=== PATIENT | female | born 1940 | race Hispanic/Latino ===

== ENCOUNTER 2019-11-04 13:03 | Inpatient (IN) | payer OTHER ==
--- OUTSIDE RECORDS SUMMARY | 2019-11-04 13:06 | XMS REPORT | Clinical Summary ---
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 LEVOTHROID) 75 MCG tabletIndications: hypothyroidism cyanocobalamin Inject 50 mcg as 0 Active (VITAMIN B-12) 50 mcg directed daily. tablet famotidine (PEPCID) Take 1 tablet (20 60 tablet 2 01/07/2014 Active 20 MG tablet mg total) by mouth 2 (two) times daily. glucometer Misc For home glucose 1 each 0 01/07/2014 Active monitoring blood sugar 1 box by 100 strip 0 01/07/2014 Active diagnostic (ACCUTREND Miscellaneous route GLUCOSE) Strp 2 (two) times daily before meals. lancets (FINGERSTIX For home glucose 50 each 0 01/07/2014 Active LANCETS) Misc monitoring Active Problems Not on file Social History Tobacco Use Types Packs/Day Years Used Date Never Smoker Alcohol Use Drinks/Week oz/Week Comments No Sex Assigned at Date Recorded Not on file Job Start Date Occupation Industry Not on file Not on file Not on file Travel History Travel Start Travel End No recent travel history available. Last Filed Vital Signs Not on file Plan of Treatment Not on file Results Not on fileafter 11/03/2018 Insurance Payer Benefit Plan / Group Subscriber ID Type Phone A ddress CARE IMPROVEMENT MEDICARE CARE IMPROVEMENT PLUS xxxxxxxxx [facility] MEDICAID MEDICAID OF [place] xxxxxxxxx Medicaid
--- OUTSIDE RECORDS SUMMARY | 2019-11-04 13:06 | XMS REPORT ---
:1940 Author Organization [facility] t Address [address] [place] [address] Care Team Providers Name Role Phone Unavailable Unavailable Unavailable Problems Condition Condition Condition Status Onset Resolution Last Treating Co mments Source Name Details Category Date Date Treatment Clinician Date Proteinuri Proteinuri Problem Active [facility] Diabetes Diabetes Problem [facility] mellitus mellitus [facility] - type 2, type 2, Memoria uncontroll uncontroll l ed, ed, Outpati without without ent complicati complicati Cl inics ons ons Gastro-eso Gastro-eso Problem Active [facility] phageal phageal [facility] - reflux reflux Memoria disease disease l without without Outpati esophagiti esophagiti en t s s Clinics Hypothyroi Hypothyroi Problem Active [facility] dism dism [facility] Vitamin Vitamin Problem Active [facility] B12 B12 [facility] - deficiency deficiency Me moria l Outpati ent Clinics Rheumatoid Rheumatoid Problem Active [facility] arthritis arthritis [facility] Gout Gout Problem Active [facility] Thrombocyt Thrombocyt Problem Active [facility] openia openia [facility] Fatty Fatty Problem Active [facility] liver liver [facility] Cataract Cataract Problem [facility] Degenerati Degenerati Problem Active [facility] on of on of [facility] - lumbosacra lumbosacra Me moria l l l interverte interverte Ou tpati bral disc bral disc ent Clinics H/O TIA H/O TIA Problem Active [facility] (transient (transient Mallory kes - ischemic ischemic Memori a attack) attack) l and stroke and stroke Ou tpati ent Clinics HTN HTN Problem Active [facility] (hypertens (hypertens Mallory kes - ion), ion), Memoria benign benign l Outpati ent [facility] 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 Mallory kes - athy athy Memoria associated associated l with other with other Ou tpati specified specified ent diabetes diabetes Clinic s mellitus mellitus Seasonal Seasonal Problem Active [facility] allergic allergic [facility] - rhinitis rhinitis Memori a l [facility] ent [facility] 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) Clin ics 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 Memori a joints joints l [facility] ent [facility] 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 [facility] chronic chronic [facility] 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 Luke s - and and Memoria ureter, ureter, l unspecifie unspecifie Ou tpati d d ent Clinics 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 [facility] ent [facility] Primary Primary Problem Active [facility] osteoarthr osteoarthr Mallory kes - itis of itis of Memoria right knee right knee l [facility] Allergies, Adverse Reactions, Alerts Allergy Allergy Status Severity Reaction(s) Onset Inactive Treating Comm ents Source Name Type Date Date Clinician penicill Adverse Active Info Not [facility] in Reaction Available [facility] Ultram Adverse Active Info Not [facility] Reaction Available [facility] Motrin Adverse Active Info Not [facility] Reaction Available [facility] Ibuprofe Adverse Active Info Not [facility] n Reaction Available [facility] Ciproflo Adverse Active Info Not [facility] xacin Reaction Available [facility] Lisinopr Adverse Active Info Not [facility] il Reaction Available [facility] Medications Ordered Filled Start Stop Current Ordering Indication Dosage Frequency Signature Comments Components Source Medication Medication Date Date Medication? Clinician (SIG) Name Name Tradjenta Tradjenta Yes Ramakrishna [address] [facility] Yepez [facility] Levothyroxi Levothyroxi Yes Ramakrishna RAINE VON [facility] ne Sodium ne Sodium Yepez TABLETA Mallory kes - POR VIA Memoria ORAL CADA l MANANA ON Outpati A EMPTY ent STOMACH Clinics Bystolic Bystolic Yes Ramakrishna [address] [facility] Yepez [facility] Lasix Lasix Yes Ramakrishna [address] Yepez [facility] Amlodipine Amlodipine Yes Ramakrishna RAINE VON [facility] Besylate Besylate Yepez TABLETA Luke s - VON VEZ AL Memoria ALAN POR l VIA ORAL [facility] Amlodipine Amlodipine Yes Ramakrishna [address] [facility] [address] Besylate Besylate Yepez [facility] Levothyroxi Levothyroxi Yes Ramakrishna [address] [facility] ne Sodium ne Sodium Yepez on an Luke s - empty Memoria stomach in l the Outpati morning ent Clinics Venlafaxine Venlafaxine Yes Ramakrishna 1-[address] HCl HCl Yepez with food [facility] - PRN Nerve Memoria Pain l [facility] TobraDex TobraDex Yes Ramakrishna [address] [facility] Yepez applicatio [facility] n [facility] l [facility] Metformin Metformin Yes Ramakrishna [address] HCl HCl Yepez with meals [facility] Vitamin Vitamin Yes Ramakrishna not [facility] B-12 B-12 Yepez defined [facility] Ferrous Ferrous Yes Ramakrishna [address] Sulfate Sulfate Yepez [facility] Lisinopril Lisinopril Yes Ramakrishna [address] Yepez [facility] Procedures This patient has no known procedures. Encounters Start End Encounter Admission Attending Care Care Encounter Source Date/Time Date/Time Type Type Clinicians Facility Department ID 2019-01-27 2019-01-27 Outpatient Janine Calvert [id number] [facility] 16:32:00 16:32:00 t [facility] ent Clinics 2019-01-23 2019-01-23 Outpatient Janine Calvert [id number] [facility] 16:19:00 16:19:00 t [facility] ent Clinics 2019-01-10 2019-01-10 Outpatient Janine Calvert [id number] [facility] 09:30:00 09:30:00 t [facility]ics 2019-01-02 2019-01-02 [facility] [id number] [address] 08:45:00 08:45:[place] orderTopia s - Drive [facility] Medicine Outpati ent Clinics 2018-12-26 2018-12-26 [facility] [id number] 08:15:00 08:15:00 [place] [employer] [place] - [employer] [facility] Medicine Outpati ent Clinics 2018-10-03 2018-10-03 [facility] [id number] 08:30:00 08:30:00 [place] [employer] [place] - [place] [facility] Medicine Outpati ent Clinics 2018-09-26 2018-09-26 [facility] [id number] [address] 08:30:00 08:30:00 [place] [employer] - [place] [facility] Medicine Outpati ent Clinics 2018-09-06 2018-09-06 [facility] [id number] [address] 10:25:00 10:25:00 [place] [employer] - [place] [facility] Medicine Outpati ent Clinics 2018-09-02 2018-09-02 [facility] [id number] 10:15:00 10:15:00 [place] [employer] [facility] Medicine Outpati ent Clinics 2018-07-05 2018-07-05 [facility] [id number] [address] 08[facility]30:00 08:30:00 [place] orderTopia s - Drive [facility] Medicine Outpati ent Clinics 2018-06-28 2018-06-28 [facility] [id number] [address] 08:15:00 08:15:00 [place] [employer] [facility] Medicine Outpati ent Clinics 2018-05-28 2018-05-28 [facility] [id number] [address] 14:00:00 14:00:00 t [facility] ent Clinics 2018-02-04 2018-02-04 [facility] [id number] [facility] 08:30:00 08:30:00 [place] [address] [place] [facility] - Drive [facility] l Medicine Outpati ent Clinics 2018-01-28 2018-01-28 [facility] [id number] [facility] 08:15:00 08:15:00 [place] [place] [address] [place] [facility] - Drive [facility] Family Medicine l Medicine Outpati ent Clinics 2017-12-20 2017-12-20 [facility] [id number] 14:15:00 14:15:00 [place] [address] [place] [address] [place] - Drive [facility] Family Medicine l Medicine Outpati ent Clinics 2017-12-11 2017-12-11 [facility] [id number] [address] 12:00:00 12:00:00 [place] [place] [address] [place] - Drive [facility] Medicine l Medicine Outpati ent Clinics 2017-12-04 2017-12-04 [facility] [id number] 08:15:00 08:15:00 [place] [address] [facility] - Drive [facility] Family Medicine l Medicine Outpati ent Clinics 2017-10-29 2017-10-29 [facility] [id number] [address] 10:15:00 10:15:00 [place] [address] [place] - Drive [facility] Medicine l Medicine Outpati ent Clinics 2017-10-22 2017-10-22 [facility] [id number] 07:53:00 07:53:00 [place] [employer] [place] s - Drive [facility] Medicine l Medicine Outpati ent Clinics 2017-10-19 2017-10-19 [facility] [id number] 09:50:00 09:50:00 [place] [address] [facility] - Drive [facility] Family Medicine l Medicine Outpati ent Clinics 2017-10-19 2017-10-19 [facility] [id number] 08:15:00 08:15:00 [place] [address] [place] [facility] - Drive [facility] Medicine l Medicine Outpati ent Clinics 2017-09-26 2017-09-26 [facility] [id number] 16:20:00 16:20:00 [place] [address] [place] [address] [facility] - Drive [facility] 2017-09-24 2017-09-24 Outpatient [facility] [id number] 08:49:00 08:49:00 t [employer] [facility] ent [facility] 2017-09-24 2017-09-24 Outpatient Janine Mehtat [id number] 08:45:00 08:45:00 t [employer] [facility] ent Clinics Results This patient has no known results.
[2019-11-04 13:41] VITALS: BMI 22.1
[2019-11-04] MEDS ORDERED: ACETAMINOPHEN 500 MG TAB PO PRN (13:55)
[2019-11-04] MEDS ORDERED: ONDANSETRON 4 MG/2 ML VIAL IV PRN (13:55)
[2019-11-04] MEDS ORDERED: NA CHLORIDE 0.9% 1,000 ML IV SCH (14:00)
[2019-11-04 14:49] LABS: Absolute Lymphocytes (CBC) 1.2 K/uL (0.7-4.9); Basophils % 0.5 % (0-1.3); Hematocrit 31.5 % (36.0-45.0); Lymphocytes % 25.9 % (15.3-44.8); MPV 11.4 fL (7.6-11.3); RBC Red Blood Cell Count 3.69 M/uL (3.86-4.86)
[2019-11-04 15:21] LABS: Albumin 3.8 g/dL (3.4-5.0); Bilirubin Total 0.3 mg/dL (0.2-1.0); Magnesium 2.3 mg/dL (1.8-2.4); Phosphorus 4.4 mg/dL (2.5-4.9); Protein, Total 9.3 g/dL (6.4-8.2); Thyroid Stimulating Hormone 1.85 uIU/mL (0.360-3.740)
[2019-11-04 15:25] LABS: Potassium 6.2 mmol/L (3.5-5.1)
[2019-11-04 15:38] LABS: Blood Morphology Comment NOT SEEN (NOT SEEN); Platelet Estimate DECR; Urine White Blood Cell Casts OK
[2019-11-04] MEDS ORDERED: GLUCAGON 1 MG/VIAL IM PRN (15:52)
[2019-11-04] MEDS ORDERED: D50W 25 GM/50 ML SYRINGE/VIAL IV PRN (15:52)
[2019-11-04 15:57] LABS: Urine Appearance CLOUDY; Urine Bilirubin NEGATIVE (NEG); Urine Blood 1+ (NEG); Urine Color YELLOW; Urine Glucose 2+ (NEG); Urine Protein 1+ (NEG); Urine Specific Gravity 1.015 (1.005-1.030); Urine Urobilinogen 0.2 mg/dL (0.2-1.0)
[2019-11-04] MEDS ORDERED: NACHLORIDE 0.45% 1,000 ML with NA BICARB 8.4% 75 MEQ IV SCH ×4 (16:00→17:00)
[2019-11-04] MEDS ORDERED: D50W 25 GM/50 ML SYRINGE/VIAL IV ONE ×2 (16:13→17:00)
[2019-11-04] MEDS ORDERED: INSULIN -REGULAR HUMAN 50 UNIT/0.5 ML ML IV ONE (16:15)
[2019-11-04 16:22] LABS: Urine Microscopic Reflex ORDER UMIC
[2019-11-04 16:29] LABS: Urine Protein/Creatinine Ratio 0.56 ratio (<0.15)
[2019-11-04 16:42] LABS: Urine Bacteria LOADED /HPF (<20); Urine Culture Reflex Order REFLEXED; Urine RBC <5 /HPF (NONE SEEN)
[2019-11-04] MEDS ORDERED: CALCIUM GLUC 10% INJ 4.65 MEQ in NA CHLORIDE 0.9% 100 ML IV ONE (17:00)
[2019-11-04] MEDS ORDERED: SOD POLYSTYREN SUL 15 GM/60 ML UCUP PO ONE (17:00)
[2019-11-04] MEDS ORDERED: NA CHLORIDE 0.9% 1,000 ML IV ONE (17:00)
[2019-11-04] MEDS ORDERED: WATER FOR INJ,STERILE 1,000 ML with NA BICARB 8.4% 100 MEQ IV SCH ×2 (17:00)
[2019-11-04] MEDS ORDERED: FUROSEMIDE 40 MG/4 ML VIAL IV ONE (17:00)
[2019-11-04] MEDS ORDERED: ALBUTEROL 2.5 MG/3 ML NEB SOL NEB ONE (17:00)
--- NOTE | 2019-11-04 17:06 | RAD REPORT ---
EXAM DESCRIPTION: US - Renal Ultrasound-Complete - 11/04/2019 4:29 pm CLINICAL HISTORY: KP Flank pain COMPARISON: LIVER BIOPSYPROCEDUREE dated 04/08/2012; Abdomen Pelvis Wo Contrast dated 09/30/2016 FINDINGS: Both kidneys are normal in size, shape and echotexture. The right kidney measures 9.9 x 5.2 x 4.2 cm. No hydronephrosis, focal mass or perinephric fluid. 3 c m cyst is present superior pole right kidney, benign in appearance. The left kidney measures 10.2 x 4.5 x 3.9 cm. No hydronephrosis, focal mass or perinephric fluid. The urinary bladder is incompletely distended without gross abnormality seen. IMPRESSION: Benign 3 cm right renal cyst, otherwise negative study.
[2019-11-04 17:11] LABS: Uric Acid 6.5 mg/dL (2.6-6.0)
[2019-11-04 17:44] LABS: Blood O2 Saturation 95.8 % (92-98.5)
[2019-11-04] MEDS: WATER FOR INJ,STERILE 1,000 ML with NA BICARB 8.4% 150 MEQ IV SCH ×2 (18:40)
[2019-11-04] MEDS: PIPER/TAZO/NS 2.25gm 2.25 GM/50 ML BAG IVPB SCH ×2 (18:42→23:58)
--- NOTE | 2019-11-05 00:01 | HP ---
Date of Admission: 11/04/2019 Code Status: Full. Chief Complaint: Abnormal labs, direct admission from Nephrology office for worsening kidney functio n. History Of Present Illness: Patient is a 79-year-old female with past medical history of diabetes, h ypothyroidism, hypertension, hyperlipidemia, rheumatoid arthritis, GERD, gout, comes in from nephrolo gist's office for abnormal labs. Patient has worsening kidney function and patient was dehydrated, t herefore was sent into the hospital for further evaluation. Patient otherwise denies any specific co mplaints. No nausea, vomiting, fever, chills. History is limited as patient is Belarusian-speaking onl y with very limited Angolan. Past Medical History: Diabetes mellitus type 2, hypothyroidism, hypertension, hyperlipidemia, rheuma toid arthritis, GERD and gout. Surgical History: Hysterectomy, cholecystectomy, hernia repair. Allergies: TYLENOL, PENICILLIN, CIPRO, CODEINE, MORPHINE, TRAMADOL, AND LOSARTAN. Medications: List reviewed. Social History: Patient denies any tobacco or alcohol use. No illicit drug use. Family History: Denies any family history of diabetes. Review of Systems: Limited due to communication, however, 10-point system reviewed negative except as per HPI. Physical Examination: Vital signs: O2 greater than 95% on room air. Blood pressure 142/53, respirations 18, heart rate 75 . General: Awake, alert, oriented, no acute distress elderly female. HEENT: Normocephalic, atraumatic. PERRLA, EOMI. Moist mucous membranes. Poor dentition. Conjunct ivae anicteric. Neck: Supple. No JVD. Trachea midline. CV: S1, S2. Regular rate and rhythm. Peripheral pulses present. Respiratory: Moving air well bilaterally. No wheezing or stridor. Gastrointestinal: Abdomen is soft, nontender, nondistended. Positive bowel sounds. Extremities: No clubbing, cyanosis, or edema. Neuro: Cranial nerves 2 through 12 intact grossly. No focal neurological deficit. Speech is normal . Skin: No rashes. Normal skin turgor. Laboratory Data: Sodium 138, potassium 6.2, chloride 118, CO2 15, BUN 54, creatinine 1.8, glucose 14 6, lactate 1, uric acid 6.5, calcium 8.7, phosphorus 4.4, magnesium 2.3. WBC 4.6, H and H 10.6 and 3 1.5, platelets 67. ABG, pH 7.24, pCO2 23, PO2 115, bicarb is 9.9. UA, negative nitrite, 3+ leukocyt e esterase, loaded bacteria. Renal ultrasound shows benign 3 cm right renal cyst, otherwise negative . Assessment And Plan: 79-year-old female with 1.Acute kidney injury. Baseline creatinine is normal. Renal ultrasound shows benign cyst, unclear etiology. We will have Nephrology Dr. Tabor consult on the patient. Uric acid is elevated. Daisy ent does have hypokalemia as well. We will start on bicarb drip and monitor kidney function. 2.Hyperkalemia. Patient is given Kayexalate, albuterol treatment, and calcium gluconate. We will r epeat labs in 6 hours or so. 3.Metabolic acidosis. We will continue bicarb drip secondary to above. 4.Diabetes mellitus type 2, non-insulin requiring. We will continue with sliding scale insulin. Mo nitor blood glucose levels. 5.Volume depletion. 6.Thrombocytopenia, this is chronic. 7.Mixed hyperlipidemia. We will continue home medication. 8.Essential hypertension. Continue medications as appropriate. 9.Gastroesophageal reflux disease. Continue PPI. 10.Hypothyroidism. Continue replacement. 11.Osteoarthritis. 12.Rheumatoid arthritis, stable. PLAN: We will admit patient to Med-Surg, place as inpatient. Length of stay greater than 2 midnights. JAVY Voice ID: [id number]
[2019-11-05 00:43] LABS: Potassium 5.4 mmol/L (3.5-5.1)
[2019-11-05] MEDS: WATER FOR INJ,STERILE 1,000 ML with NA BICARB 8.4% 150 MEQ IV SCH ×6 (07:01→18:00)
[2019-11-05] MEDS: FLUDROCORTISONE 0.1 MG TAB PO SCH (08:42)
[2019-11-05] MEDS: PIPER/TAZO/NS 2.25gm 2.25 GM/50 ML BAG IVPB SCH ×2 (08:42→16:49)
--- NOTE | 2019-11-05 12:58 | CON ---
Date of Consultation: 11/05/2019 Reason For Consultation: Hyperkalemia, elevated BUN and creatinine, fluid management, acidosis. History Of Present Illness: This is a pleasant 79-year-old female with significant past medical history of diabetes which diagnosed in 2016, complicated with neuropathy and retinopathy; hypothyroidism; hypertension; hyperlipidemia; rheumatoid arthritis; GERD; gout; patient was in her regular state of health. Patient referred to my office for elevation BUN and creatinine, and hyperkalemia. Upon reviewing the lab that done back in October 23, potassium was 6.6 with acidosis, bicarb was 14, creatinine 2.1. For that reason, patient was sent for direct admission. Patient denied taking any nonsteroidal. No IV contrast. No recent change in her medication. Patient upon arrival to the hospital, we started the patient on aggressive hydration. Apparently, she was on lisinopril. The primary workup show acidosis with pH of . Patient started on bicarb drip and we send for the workup. Lisinopril has been discontinued and IV fluids started. Patient started on antibiotic. Patient today feeling much better. No nausea. No vomiting. Potassium has been decreased from 6.6 down to 5.4. Past Medical History: 1. Diabetes, complicated with neuropathy and retinopathy. 2. Hypothyroidism. 3. Hypertension. 4. Hyperlipidemia. 5. Rheumatoid arthritis. 6. GERD. 7. Gout. Past Surgical History: Hysterectomy, cholecystectomy, and hernia repair. Allergies: CIPRO, CODEINE, MORPHINE, TRAMADOL, LOSARTAN, AND TYLENOL. Home Medications: Include: 1. Lisinopril. 2. Amlodipine. 3. Carvedilol. 4. Levothyroxine. 5. Actos. Current medications in the hospital include Tylenol, Zosyn, Zofran and bicarb drip. Family History: Positive for diabetes and hypertension. Social History: Lives with family. Denies smoking. Denies drinking. Denies drug abuse. Review of Systems: Head and Neck: No red eye. No ear pain. GI: No nausea. No vomiting. : No polyuria. No dysuria. No hematuria. 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 Respiratory: No shortness of breath. Cardiovascular: No chest pain. Endocrine: No polydipsia. Skin : No rash. Neuro: Has neuropathy. Musculoskeletal: Generalized body ache. Physical Examination: Vital Signs: Blood pressure 127/64, pulse of 81, afebrile. Patient had good urine output of 500, positive of 2 L. Chest: Clear to auscultation. Heart: S1, S2. Systolic murmur. Abdomen: Soft, nontender. Extremities: No edema. Laboratory Data: CO2 of 23, O2 of 115, base excess -16. WBC 4.6, H and H 10.6/31.5, platelets 67. Sodium 139, potassium 5.4, bicarb 17, chloride 115, BUN 48, creatinine 1.5, calcium 8.2. Upon admission, sodium 138, potassium 6.2, bicarb 15, BUN 54, creatinine 1.8. TSH 1.8. Cortisol level is 22. Urinalysis; PC ratio is 0.5. Ketone was negative. Renal ultrasound was done showing 9.5 x 10.2 with renal cyst 3 cm. Assessment And Plan: 1. Acute kidney injury, normal size kidney, proteinuric, non-nephrotic mostly secondary to prerenal/toxic acute tubular necrosis superimposed with lisinopril, complicated with hyperkalemia and acidosis, under recovery phase. I am going to continue aggressive hydration. With the presence of acidosis, we will use the sodium bicarb drip. 2. Acidosis with urine anion gap positive and hyperkalemia, mostly secondary with non-anion gap in the serum mostly it is secondary to toxic acute tubular necrosis/renal tubular acidosis secondary to diabetes, questionable secondary to rheumatoid arthritis. Giving the hyperkalemia, I am going to keep holding DAVID inhibitor. We will continue sodium bicarb. I am going to start the patient on sodium bicarb oral and we will start the patient on Florinef and we will follow up the patient. 3. Giving the presence of the anemia and the proteinuria to rule out any Fanconi, I am going to send for anemia workup and to rule out light chain disease. 4. 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 5. Hyperkalemia secondary to DAVID inhibitor/renal tubular acidosis, under recovery. Continue sodium bicarb. Continue hydration. Discontinue lisinopril. 6. Diabetes as by primary. 7. Urinary tract infection. Continue Zosyn. Follow up culture. 8. Hypertension, currently controlled optimal. With the presence of acute kidney injury and hyperkalemia, hold DAVID inhibitor, if need to resume carvedilol I am okay. MA/MODL Voice ID: [id number] Report ID: [id number] MTDCalvin
--- NOTE | 2019-11-05 19:35 | PN ---
Date of Progress Note: 11/05/2019 Subjective: Patient seen and examined. Chart reviewed and case discussed with RN and Dr. Tabor. Patient states she is doing better. No acute events overnight. Tolerating her diet, but does not have much of an appetite. Medications: List reviewed. Physical Examination: Vital Signs: Temperature 98.2, heart rate 81, blood pressure 127/64, respirations 18, O2 97% on room air. General: Awake, alert, oriented x3. Elderly female, in some mild distress, frail cachectic. CV: S1, S2. Regular rate and rhythm. Peripheral pulses present. Respiratory: Moving air well bilaterally. No wheezing or stridor. Gastrointestinal: Bowel sounds positive. No guarding or rigidity. Nontender nondistended. Extremities: No clubbing, cyanosis, or edema. Neurologic: Nonfocal. Speech is normal. Skin: No rashes. Normal skin turgor. Laboratory Data: Sodium 139, potassium 5.4, chloride 115, CO2 17, BUN 48, creatinine 1.51, glucose 97, calcium 8.2, cortisol 22. Assessment And Plan: 79-year-old female with 1. Acute kidney injury, likely due to renal tubular acidosis or acute tubular necrosis, improving. We will continue to monitor. Continue bicarb drip. Appreciate Nephrology input. 2. Hyperkalemia, corrected. Still somewhat hypokalemic. We will continue with Kayexalate secondary to above. 3. Metabolic acidosis. Continue bicarb drip. 4. Diabetes mellitus type 2, non-insulin requiring. Continue sliding scale insulin and monitor blood glucose levels. 5. Volume depletion, improving. 6. Thrombocytopenia, chronic. We will repeat CBC in a.m. 7. Mixed hyperlipidemia. Continue home medication. 8. Essential hypertension, stable. Continue home medications. 9. Gastroesophageal reflux disease. Continue PPI. 10. Hypothyroidism. We will continue Synthroid. 11. Osteoarthritis and rheumatoid arthritis, stable. 12. Deep vein thrombosis prophylaxis. Continue with SCDs. Avoid Lovenox due to the thrombocytopenia. Renal ultrasound shows benign 3 mm right renal cyst. 13. Acute cystitis without hematuria. Urine cultures pending. We will continue IV antibiotics. Likely discharge in next 24-48 hours depending on clinical response. SA/MODL Voice ID: [id number] Report ID: [id number] MTDD
[2019-11-05] MEDS: SODIUM BICARB 325 MG TAB PO SCH (20:55)
[2019-11-05] MEDS: carvediloL 6.25 MG TAB PO SCH (20:55)
[2019-11-06] MEDS: PIPER/TAZO/NS 2.25gm 2.25 GM/50 ML BAG IVPB SCH ×3 (00:30→17:00)
[2019-11-06] MEDS: WATER FOR INJ,STERILE 1,000 ML with NA BICARB 8.4% 150 MEQ IV SCH ×4 (01:40→02:50)
[2019-11-06 04:25] LABS: Absolute Lymphocytes (CBC) 0.9 K/uL (0.7-4.9); Basophils % 0.6 % (0-1.3); Hematocrit 25.5 % (36.0-45.0); Lymphocytes % 36.2 % (15.3-44.8); MPV 10.8 fL (7.6-11.3); RBC Red Blood Cell Count 3.06 M/uL (3.86-4.86)
[2019-11-06 05:22] LABS: Albumin 2.9 g/dL (3.4-5.0); Ferritin 145.9 ng/mL (8-388); Folic Acid, (Folate) 13.1 ng/mL (3.1-17.5); Magnesium 1.7 mg/dL (1.8-2.4); Phosphorus 3.1 mg/dL (2.5-4.9); Potassium 3.7 mmol/L (3.5-5.1)
[2019-11-06] MEDS ORDERED: MAGNESIUM SULFATE 1 gm IVPB 1 GM/100 ML BAG IV ONE (05:32)
[2019-11-06] MEDS ORDERED: POTASSIUM CL SA 10 MEQ TAB PO ONE (05:33)
[2019-11-06 05:39] LABS: Blood Morphology Comment NOT SEEN (NOT SEEN); Platelet Estimate DECR; Urine White Blood Cell Casts OK
[2019-11-06] MEDS ORDERED: LEVOTHYROXINE SOD 0.088 MG TAB PO SCH (06:30)
[2019-11-06] MEDS: MAGNESIUM SULFATE 1 gm IVPB 1 GM/100 ML BAG IV ONE ×2 (07:42→10:34)
[2019-11-06] MEDS ORDERED: AMLODIPINE 10 MG TAB PO SCH (09:00)
[2019-11-06] MEDS: FLUDROCORTISONE 0.1 MG TAB PO SCH (09:00)
[2019-11-06] MEDS: SODIUM BICARB 325 MG TAB PO SCH (10:31)
[2019-11-06] MEDS: carvediloL 6.25 MG TAB PO SCH (10:31)
[2019-11-06 16:15] VITALS: O2SAT 95
[2019-11-06 17:57] VITALS: BP 130/62; TEMP 98.5
--- NOTE | 2019-11-06 23:27 | PN ---
Date of Progress Note: 11/06/2019 Subjective: Patient was admitted with acute kidney injury secondary to prerenal/toxic ATN, superimpo sed with the toxic ATN, superimposed with diuresis and DAVID inhibitor complicated with hyperkalemia, f ound to have RTA. Patient was placed on bicarb drip and placed on Florinef, so potassium normalized, kidney function backed to baseline. Today, patient is feeling well. Physical Examination: Vital Signs: Blood pressure 130/62, pulse of 75, afebrile. The patient had good urine output. Chest: Clear to auscultation. Heart: S1, S2 regular. Abdomen: Soft, nontender. Extremities: No edema. Neurological: Alert. No focality. Laboratory Data: WBC 2.6, H and H 8.7/25.5, platelet 37. Sodium 138, potassium 3.7, bicarb 32, BUN 29, creatinine 1, GFR 49, phosphorus 3.1, magnesium 1.7. Serum protein electrophoresis still pending . Vitamin D still pending. PTH 131, PC ratio 0.5. Urine specific gravity 1.015. Urine pH of 5. U rine culture, no growth. Assessment And Plan: 1.Acute kidney injury secondary to prerenal, recovered, resolved. 2.Non-anion gap metabolic acidosis with hyperkalemia secondary to renal tubular acidosis, type 4. P atient with the presence of anemia, rheumatoid arthritis history and thrombocytopenia. Fanconi syndro me is high probability. Serum protein electrophoresis is still pending. I am going to continue with the Florinef and sodium bicarb. Keep holding DAVID inhibitor and hydrochlorothiazide for the time jessica ng. We will follow up the patient in 2 weeks in the office. 3.Anemia, thrombocytopenia. Patient workup for light chain disease is still pending. We will follo w up. 4.Secondary hyperparathyroidism. I do not see the need for any vitamin D analog for the time being. 5.Hypertension controlled optimal with the presence of acute kidney injury and hyperkalemia. Keep h olding hydrochlorothiazide and DAVID inhibitor, currently controlled. 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 Continue Florinef. 7.Patient cleared from the renal standpoint for discharge planning, to follow up in the office in 2- 3 weeks. 8.Urinary tract infection. Continue current antibiotic. 9.Case discussed with the patient, verbalized understanding, discussed with Dr. Bustos, agreed on the plan. 10.Time spent 45 minutes. KRIS Voice ID: [id number] Report ID: [id number]
--- NOTE | 2019-11-07 00:36 | DS ---
Date of Discharge: 11/06/2019 Consultants: Dr. Tabor. Admitting Diagnoses: 1. Acute kidney injury. 2. Hyperkalemia. 3. Metabolic acidosis. 4. Diabetes mellitus type 2, [id number] with hyperglycemia. 5. Volume depletion. 6. Thrombocytopenia. 7. Mixed hyperlipidemia. 8. Essential hypertension. 9. Gastroesophageal reflux disease. 10. Hypothyroidism. 11. Osteoarthritis. 12. Rheumatoid arthritis. Discharge Diagnoses: 1. Acute kidney injury, improved, secondary to renal tubular acidosis. 2. Hyperkalemia, corrected. 3. Volume depletion. 4. Metabolic acidosis, improved with bicarb drip. 5. Acute cystitis without hematuria secondary to gram-negative rods, final cultures pending. 6. Diabetes mellitus type 2, mhk-nqbcchb-ogbwuksrc with hyperglycemia. 7. Mixed hyperlipidemia, stable. 8. Essential hypertension, stable. 9. Gastroesophageal reflux disease, stable. 10. Hypothyroidism, stable. 11. Osteoarthritis and rheumatoid arthritis, stable. 12. Thrombocytopenia, chronic. Possibly Fanconi syndrome. Protein electrophoresis pending Hospital Course: Patient is a 79-year-old female, who came in directly from the kidney doctor's office for acute kidney injury, abnormal labs. Patient has history of diabetes, hypothyroidism, hypertension, hyperlipidemia, GERD, gout, and rheumatoid arthritis. This was thought to be due to renal tubular acidosis. Patient was started on bicarb drip. Patient did well over the course of the hospital stay. Her kidney function normalized. She did have hyperkalemia, which is treated acutely with hyperkalemia cocktail including calcium, Kayexalate, albuterol, insulin, patient's potassium improved. She does have low platelets, which is apparently chronic. No active bleeding at this time. Patient also found to have incidental UTI. Patient's cultures grew out gram- negative rods. She was treated with IV antibiotics. Her final cultures are still pending at this time. Overall, patient did well. She was then cleared for discharge to be sent home in a stable condition. Activity: As tolerated. Diet: Diabetic. Followup: Patient to follow up with her primary care physician in 2-3 days. Follow up with em physician, Dr. Tabor in 2 weeks. Return to ER for worsening condition. Physical Examination: General: Awake, alert oriented x3. Elderly female, frail, cachectic. CV: S1- S2. Respiratory: Moving air well bilaterally. Abdomen: Abdomen is soft, nontender, nondistended. Positive bowel sounds. Extremities: No clubbing, cyanosis, or edema. Neurologic: Nonfocal. Total time spent discharging patient was 37 minutes. ADDENDUM: Urine cultures showing E. coli sensitive to cefuroxime SA/MODL Voice ID: [id number] Report ID: [id number] [facility]
[2019-11-10 21:23] LABS: Alpha-1-Globulins 0.3 g/dL (0.2-0.3); Alpha-2-Globulins 0.7 g/dL (0.5-0.9); Gamma Globulins 1.7 g/dL (0.8-1.7); INTERPRETATION REPORT
[2019-11-11 14:07] LABS: Vitamin D 1,25-Dihydroxy Total 29 pg/mL (18-72); Vitamin D,1,25-OH2, D2 <8 pg/mL
== END 2019-11-06 17:15 | disposition home or self-care (01) | DRG 683 ==
LOC: 4TH 13:03
PROVIDERS: ADMIT Family Medicine; ATTEND Family Medicine
DX: N17.0 Acute kidney failure with tubular necrosis (principal); N30.00 Acute cystitis without hematuria; R64 Cachexia; Z68.22 Body mass index [BMI] 22.0-22.9, adult; N25.81 Secondary hyperparathyroidism of renal origin; N25.89 Other disorders resulting from impaired renal tubular function; I10 Essential (primary) hypertension; K21.9 Gastro-esophageal reflux disease without esophagitis; E86.0 Dehydration; Z90.49 Acquired absence of other specified parts of digestive tract; Z90.710 Acquired absence of both cervix and uterus; Z88.1 Allergy status to other antibiotic agents; Z88.5 Allergy status to narcotic agent; Z88.0 Allergy status to penicillin; Z88.8 Allergy status to other drugs, medicaments and biological substances; E87.6 Hypokalemia; E87.5 Hyperkalemia; E86.9 Volume depletion, unspecified; D69.6 Thrombocytopenia, unspecified; E78.2 Mixed hyperlipidemia; E03.9 Hypothyroidism, unspecified; M19.90 Unspecified osteoarthritis, unspecified site; M06.9 Rheumatoid arthritis, unspecified; Z79.890 Hormone replacement therapy; Z79.899 Other long term (current) drug therapy; E11.65 Type 2 diabetes mellitus with hyperglycemia; B96.20 Unspecified Escherichia coli [E. coli] as the cause of diseases classified elsewhere; D64.9 Anemia, unspecified
CPT/HCPCS: 36415; 76770; 80048; 80053; 80069; 81003; 81015; 82010; 82435; 82533; 82550; 82570; 82607; 82652; 82728; 82746; 82805; 82947; 83540; 83605; 83735; 83970; 84100; 84132; 84156; 84165; 84300; 84443; 84550; 85025; 85044; 87040; 87077; 87086; 87088; 87186; 94640; 94760; J0610; J1940; J3475; J7030

== ENCOUNTER 2021-07-28 17:18 | Emergency (ER) | payer OTHER ==
--- OUTSIDE RECORDS SUMMARY | 2021-07-28 17:22 | XMS REPORT | Continuity of Care Document ---
:1940 Author Organization [facility] t Address [address] [place] [address] Care Team Providers Name Role Phone Unavailable [...] - ion), ion), Memoria benign benign l [facility] ent [facility] 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 Mallory kes - athy athy Memoria associated associated l with other with other Ou tpati specified specified ent diabetes diabetes Clinic s mellitus mellitus Seasonal Seasonal Problem Active [facility] allergic allergic [facility] - rhinitis rhinitis Memori a l [facility] ent [facility] 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) Clin ics 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 Memori a joints joints l [facility] ent [facility] 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 [facility] chronic chronic [facility] - illness illness [facility] ent [facility] 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 Luke s - and and Memoria ureter, ureter, l unspecifie unspecifie Ou tpati d d ent Clinics 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 [facility] ent [facility] Primary Primary Problem Active [facility] osteoarthr osteoarthr Mallory kes - itis of itis of Memoria right knee right knee l [facility] Allergies, Adverse Reactions, Alerts Allergy [...] Yes Ramakrishna [address] [facility] Yepez [facility] Levothyroxi Levothyroxi Yes Ramakrishna RAINE VON [facility] ne Sodium ne Sodium Yepez TABLETA Mallory kes - POR VIA Memoria ORAL CADA l MANANA ON Outpati A EMPTY ent STOMACH Clinics Bystolic Bystolic Yes Ramakrishna [address] [facility] Yepez [facility] Lasix Lasix Yes Ramakrishna [address] [facility] Yepez [facility] Amlodipine Amlodipine Yes Ramakrishna TOME VON [facility] Besylate Besylate Yepez TABLETA Luke s - VON VEZ AL Memoria ALAN POR l VIA ORAL [facility] Amlodipine Amlodipine Yes Ramakrishna [address] [facility] Besylate Besylate Yepez [facility] Levothyroxi Levothyroxi Yes Ramakrishna [address] [facility] ne Sodium ne Sodium Yepez on an Luke s - empty Memoria stomach in l the Outpati morning ent Clinics Venlafaxine Venlafaxine Yes Ramakrishna 1-[address] [facility] HCl HCl Yepez with food [facility] - PRN Nerve [facility] Pain l [facility] TobraDex TobraDex Yes Ramakrishna [address] [facility] Yepez applicatio [facility] Metformin Metformin Yes Ramakrishna [address] HCl HCl Yepez with meals [facility] Vitamin Vitamin Yes Ramakrishna not [facility] B-12 B-12 Yepez defined [facility] - [facility] Ferrous Ferrous Yes Ramakrishna [address] Sulfate Sulfate Yepez [facility] Lisinopril Lisinopril Yes Ramakrishna [address] [facility] Yepez [facility] Procedures This patient has no known procedures. Encounters Start End Encounter Admission Attending Care Care Encounter Source Date/Time Date/Time Type Type Clinicians Facility Department ID 2019-01-27 2019-01-27 Outpatient Janine Calvert [id number] [facility] 16:32:00 16:32:00 t [facility] 2019-01-23 2019-01-23 Outpatient Janine Calvert [id number] [facility] 16:19:00 16:19:00 t [facility] 2019-01-10 2019-01-10 Outpatient Janine Calvert [id number] [facility] 09:30:00 09:30:00 t [facility] of [facility] Clinics 2019-01-02 2019-01-02 [facility] [id number] [facility] 08:45:00 08:45:[place] [employer]) [facility] Medicine Outpati ent Clinics 2018-12-26 2018-12-26 [facility] [id number] 08:15:00 08:15:00 [place] [employer] [address] [facility] Medicine Outpati ent Clinics 2018-10-03 2018-10-03 [facility] [id number] [facility] 08:30:00 08:30:00 [place] [employer] [facility] Medicine Outpati ent Clinics 2018-09-26 2018-09-26 [facility] [id number] [facility] 08:30:00 08:30:00 [place] [employer] [facility] Medicine Outpati ent Clinics 2018-09-06 2018-09-06 [facility] [id number] 10:25:00 10:25:00 [place] [employer]) [facility] Medicine Outpati ent Clinics 2018-09-02 2018-09-02 [facility] [id number] 10:15:00 10:15:00 t [employer]) [facility] Medicine Outpati ent Clinics 2018-07-05 2018-07-05 [facility] [id number] [address] 08:30:00 08:30:00 [place] [employer]) [facility] Medicine Outpati ent Clinics 2018-06-28 2018-06-28 [facility] [id number] [facility] 08:15:00 08:15:00 [place] [employer] [facility] Medicine Outpati ent Clinics 2018-05-28 2018-05-28 [facility] [id number] [facility] 14[facility]00:00 14:00:00 t [facility] of [facility] ent Clinics 2018-02-04 2018-02-04 [facility] [id number] [facility] 08[facility]30:00 08:30:[address] [place] [address] [facility] - Drive [facility] l Medicine Outpati ent Clinics 2018-01-28 2018-01-28 [facility] [id number] 08:15:00 08:15:[address] [place] [address] Luke s - Drive [facility] Family Medicine l Medicine Outpati ent Clinics 2017-12-20 2017-12-20 [facility] [id number] 14:15:00 14:15:[address] [place] [address] Luke [facility] - Drive [facility] Family Medicine l Medicine Outpati ent Clinics 2017-12-11 2017-12-11 [facility] [id number] 12:00:00 12:00:00 [place] [address] Luke [facility] - Drive [facility] Family Medicine l Medicine Outpati ent Clinics 2017-12-04 2017-12-04 [facility] [id number] 08:15:00 08:15:[address] [place] [address] Luke s - Drive [facility] Family Medicine l Medicine Outpati ent Clinics 2017-10-29 2017-10-29 [facility] [id number] 10:15:00 10:15:[address] [place] [address] Luke s - Drive [facility] Medicine l Medicine Outpati ent Clinics 2017-10-22 2017-10-22 [facility] [id number] 07[facility]53:00 07:53:[address] [place] [address] Luke s - Drive [facility] Medicine l Medicine Outpati ent Clinics 2017-10-19 2017-10-19 [facility] [id number] 09:50:00 09:50:00 [place] [address] Luke s - Drive [facility] Medicine l Medicine Outpati ent Clinics 2017-10-19 2017-10-19 [facility] [id number] 08:15:00 08:15:00 [place] [address] Luke s - Drive [facility] Medicine l Medicine Outpati ent Clinics 2017-09-26 2017-09-26 [facility] [id number] [facility] 16:20:00 16:20:[address] [place] [address] Luke s - Drive [facility] 2017-09-24 2017-09-24 [facility] [id number] 08[facility]49:00 08:49:00 t [employer] [facility] 2017-09-24 2017-09-24 Outpatient [facility] [id number] [facility] 08:45:00 08:45:00 [employer] [facility] ent Clinics Results This patient has no known results.
[2021-07-28] MEDS ORDERED: ONDANSETRON 4 MG/2 ML VIAL ONE (20:15)
[2021-07-28] MEDS ORDERED: NA CHLORIDE 0.9% 250 ML ONE (20:16)
[2021-07-28] MEDS ORDERED: PANTOPRAZOLE 40 MG INJ ONE (20:16)
[2021-07-28 20:21] LABS: Absolute Lymphocytes (CBC) 1.2 K/uL (0.7-4.9); Hematocrit 24.1 % (36.0-45.0); Lymphocytes % 24.9 % (15.3-44.8); MPV 9.8 fL (7.6-11.3); RBC Red Blood Cell Count 2.72 M/uL (3.86-4.86)
[2021-07-28 20:25] LABS: Protime INR 1.1
--- NOTE | 2021-07-28 20:50 | RAD REPORT ---
EXAM DESCRIPTION: RAD - Chest Single View - 07/28/2021 8:19 pm CLINICAL HISTORY: COUGH COMPARISON: Two view chest March 2019 TECHNIQUE: AP portable chest image was obtained 07/28/2021 8:19 pm . FINDINGS: Chronic interstitial pattern is present accentuated by shallow inspiration and under penet rated technique. No peripheral mass or consolidation. Retrocardiac left base assessment is limited. Heart size is upper normal. Pulmonary vasculature within limits. Heart size does appear to be similar to comparison when adjusting for technique differences. Hiatal hernia is seen in the retrocardiac mi dline or chest. No measurable pleural effusion and no pneumothorax. No acute bony abnormality seen. N o acute aortic findings suspected. IMPRESSION: No acute cardiopulmonary process. Chronic interstitial lung disease is present potentially masking early edema or infiltrate.
[2021-07-28] MEDS ORDERED: OCTREOTIDE ACETATE 500 MCG/ML ONE (21:08)
--- NOTE | 2021-07-28 21:10 | EDPHYS ---
Physician Documentation [facility] Name: Ana Dennis Age: 81 yrs Sex: Female : 1940 Arrival Date: 07/28/2021 Time: 17:21 Bed 14 Private MD: ED Physician Tyler Hsu HPI: 07/28 19:28 This 81 yrs old Female presents to ER via Wheelchair with complaints of cheryl Vomiting blood. 19:28 The patient presents to the emergency department vomiting blood, a moderate amount, cheryl bright red, clots. Onset: The symptoms/episode began/occurred 1 day(s) ago. Abdominal pain: none is appreciated. Modifying factors: The symptoms are alleviated by nothing, the symptoms are aggravated by nothing. Severity of symptoms: At their worst the symptoms were mild in the emergency department the symptoms are unchanged. Historical: - PMHx: 18:16 Diabetes - IDDM; Hypothyroidism; insomnia; Hypertensive disorder; ss7 - PSHx: 18:16 hysterectomy; Cholecystectomy; bladder sling; ss7 - Immunization history:: Pneumococcal vaccine status is unknown, Flu vaccine is not up to date. - Social history:: Smoking status: Patient denies any tobacco usage or history of. ROS: 19:30 Constitutional: Negative for fever, chills, and weight loss, Eyes: Negative for injury, cheryl pain, redness, and discharge, ENT: Negative for injury, pain, and discharge, Neck: Negative for injury, pain, and swelling, Cardiovascular: Negative for chest pain, palpitations, and edema, Respiratory: Negative for shortness of breath, cough, wheezing, and pleuritic chest pain, Back: Negative for injury and pain, : Negative for injury, bleeding, discharge, and swelling, MS/Extremity: Negative for injury and deformity, Skin: Negative for injury, rash, and discoloration, Neuro: Negative for headache, weakness, numbness, tingling, and seizure, Psych: Negative for depression, anxiety, suicide ideation, homicidal ideation, and hallucinations, Allergy/Immunology: Negative for hives, rash, and allergies, Endocrine: Negative for neck swelling, polydipsia, polyuria, polyphagia, and marked weight changes, Hematologic/Lymphatic: Negative for swollen nodes, abnormal bleeding, and unusual bruising. 19:30 Abdomen/GI: Positive for abdominal pain, nausea and vomiting. Exam: 19:30 Constitutional: This is a well developed, well nourished patient who is awake, alert, cheryl and in no acute distress. Head/Face: Normocephalic, atraumatic. Eyes: Pupils equal round and reactive to light, extra-ocular motions intact. Lids and lashes normal. Conjunctiva and sclera are non-icteric and not injected. Cornea within normal limits. Periorbital areas with no swelling, redness, or edema. ENT: Nares patent. No nasal discharge, no septal abnormalities noted. Tympanic membranes are normal and external auditory canals are clear. Oropharynx with no redness, swelling, or masses, exudates, or evidence of obstruction, uvula midline. Mucous membranes moist. Neck: Trachea midline, no thyromegaly or masses palpated, and no cervical lymphadenopathy. Supple, full range of motion without nuchal rigidity, or vertebral point tenderness. No Meningismus. Chest/axilla: Normal chest wall appearance and motion. Nontender with no deformity. No lesions are appreciated. Cardiovascular: Regular rate and rhythm with a normal S1 and S2. No gallops, murmurs, or rubs. Normal PMI, no JVD. No pulse deficits. Respiratory: Lungs have equal breath sounds bilaterally, clear to auscultation and percussion. No rales, rhonchi or wheezes noted. No increased work of breathing, no retractions or nasal flaring. Back: No spinal tenderness. No costovertebral tenderness. Full range of motion. Female : Normal external genitalia. Skin: Warm, dry with normal turgor. Normal color with no rashes, no lesions, and no evidence of cellulitis. MS/ Extremity: Pulses equal, no cyanosis. Neurovascular intact. Full, normal range of motion. Neuro: Awake and alert, GCS 15, oriented to person, place, time, and situation. Cranial nerves II-XII grossly intact. Motor strength 5/5 in all extremities. Sensory grossly intact. Cerebellar exam normal. Normal gait. Psych: Awake, alert, with orientation to person, place and time. Behavior, mood, and affect are within normal limits. 19:30 Abdomen/GI: Inspection: abdomen appears normal, Bowel sounds: normal, Palpation: abdomen is soft and non-tender, Rectal exam: Stool: black, Liver: no appreciated palpable abnormalities, Hernia: not appreciated. 21:11 ECG was reviewed by the Attending Physician. [facility] Vital Signs: 18:03 BP 110 / 56; Resp 18; Temp 97.0(TE); Weight 63.05 kg; Height 5 ft. 2 in. (157.48 cm); ss7 18:03 Pulse 81; Pulse Ox 97% ; ss7 21:00 BP 135 / 65; Pulse 63; Resp 16; Pulse Ox 100% on R/A; st1 22:00 BP 143 / 64; Pulse 64; Resp 16; Pulse Ox 100% on R/A; st1 23:00 BP 159 / 65; Pulse 66; Resp 20; Pulse Ox 100% on R/A; st1 07/29 00:51 BP 142 / 58; Pulse 80; Resp 16; Pulse Ox 97% on R/A; 1 07/28 18:03 Body Mass Index 25.42 (63.05 kg, 157.48 cm) 7 MDM: 07/28 19:18 Patient medically screened. [facility] 19:31 Differential diagnosis: gastritis, varices. Data reviewed: vital signs, nurses notes, [facility] lab test result(s), EKG, radiologic studies, CT scan, plain films. 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 Interpretation: acceptable. Test interpretation: by ED physician or midlevel provider: ECG, plain radiologic studies. Counseling: I had a detailed discussion with the patient and/or guardian regarding: the historical points, exam findings, and any diagnostic results supporting the discharge/admit diagnosis, lab results, radiology results, the need for further work-up and treatment in the hospital. 07/28 19:27 Order name: Basic Metabolic Panel [facility] 07/28 19:27 Order name: CBC with Diff; Complete Time: 21:04 [facility] 07/28 19:27 Order name: LFT's; Complete Time: 21:17 [facility] 07/28 19:27 Order name: Magnesium; Complete Time: 21: [facility] 07/28 19:27 Order name: NT PRO-BNP; Complete Time: 21:17 [facility] 07/28 19:27 Order name: PT-INR; Complete Time: 21:04 [facility] 07/28 19:27 Order name: Troponin HS; Complete Time: 21: [facility] 07/28 19:27 Order name: Lipase; Complete Time: 21:17 [facility] 07/28 19:27 Order name: AMMONIA; Complete Time: 21:04 [facility] 07/28 19:27 Order name: Type And Screen [facility] 07/28 19:27 Order name: Basic Metabolic Panel; Complete Time: 21:17 [facility] 07/28 19:30 Order name: SARS-COV-2 RT PCR (Document "Date of Onset" if Symptomatic) [facility] 07/28 19:31 Order name: SARS-COV-2 RT PCR; Complete Time: 21:04 [facility] 07/28 21:23 Order name: ABO/RH no charge; Complete Time: 21:25 [facility] 07/28 19:27 Order name: XRAY Chest (1 view); Complete Time: 21:04 [facility] 07/28 19:27 Order name: EKG; Complete Time: 19:28 [facility] 07/28 19:27 Order name: Cardiac monitoring; Complete Time: 20:31 [facility] 07/28 19:27 Order name: EKG - Nurse/Tech; Complete Time: 20:19 [facility] 07/28 19:30 Order name: CT Abd/Pelvis - IV Contrast Only; Complete Time: 22:40 [facility] 07/28 21:44 Order name: Packed RBCs (Additional Unit) [facility] 07/28 23:36 Order name: Lactate [facility] 07/28 19:27 Order name: IV Saline Lock; Complete Time: 19:32 [facility] 07/28 19:27 Order name: Labs collected and sent; Complete Time: 20:19 [facility] 07/28 19:27 Order name: O2 Per Protocol; Complete Time: 19:32 [facility] 07/28 19:27 Order name: O2 Sat Monitoring; Complete Time: 19:32 [facility] 07/28 19:27 Order name: Urine Dipstick-Ancillary (obtain specimen) [facility] 07/28 19:27 Order name: IV Saline Lock - Large Bore; Complete Time: 19:32 [facility] 07/28 21:29 Order name: Transfuse; Complete Time: 00:36 [facility] EC:11 Rate is 77 beats/min. Rhythm is regular. QRS [place] is Normal. GA interval is normal. QRS cheryl interval is normal. QT interval is normal. No Q waves. T waves are Normal. No ST changes noted. Clinical impression: NSR w/ Non-specific ST/T Changes and No evidence of ischemia. Interpreted by me. Reviewed by me. Administered Medications: 20:23 Drug: Zofran (Ondansetron) 4 mg Route: IVP; Site: right antecubital; sf1 07/29 01:20 Follow up: Response: No adverse reaction 07/28 20:50 Drug: ProTONIX (pantoprazole) 8 mg/hr Route: IV; Rate: 25 ml/hr; Site: left antecubital;st1 07/29 01:20 Follow up: IV Status: Infusion continued upon transfer 07/28 20:51 Drug: ProTONIX (pantoprazole) 80 mg Route: IVP; Site: right antecubital; st1 07/29 01:20 Follow up: Response: No adverse reaction 07/28 22:13 Drug: SandoSTATIN (octreotide) 25 mcg/h Route: IV; Rate: calculated rate; Site: right st1 antecubital; 07/29 01:20 Follow up: IV Status: Infusion continued upon transfer 07/28 22:14 Drug: SandoSTATIN (octreotide) 50 mcg Route: IV; Rate: calculated rate; Site: right st1 antecubital; 07/29 01:21 Follow up: IV Status: Completed infusion Disposition Summary: 07/28/21 22:49 Transfer Ordered Transfer Location: [facility] cheryl Reason: Higher level of care cheryl Condition: Stable(07/28/21 22:49) cheryl Problem: new(07/28/21 22:49) cheryl Symptoms: have improved(07/28/21 22:49) cheryl Accepting Physician: to [facility], [facility](07/29/21 01:21) mynor Diagnosis - Unspecified cirrhosis of liver(07/28/21 22:49) cheryl - Type 1 diabetes mellitus with hyperglycemia(07/28/21 22:49) cheryl - GI Bleed/ Gastrointestinal hemorrhage, unspecified - upper(07/28/21 22:49) cheryl - Anemia, unspecified(07/28/21 22:49) cheryl - Unspecified kidney failure(07/28/21 22:51) cheryl Forms: - Medication Reconciliation Form cheryl - SBAR form cheryl Signatures: Dispatcher [employer] Tyler Hunt MD MD cha Ballard, Brenda RN RN Marek Paez, DEVELOPMENT TEAM LEAD-C DEVELOPMENT TEAM LEAD-Cla1 Adilene Dowell RN RN st1 Kaela Larson, RN RN sf1 Christine Beauchamp RN RN ss7 Corrections: (The following items were deleted from the chart) 07/28 21:27 21:09 Lucas Bowman cheryl la1 22:39 21:29 PACKED RBC LEUKORED -1+BB.LAB.BRZ ordered. EDMS EDMS 22:39 21:30 ABO/RH typing ordered. EDMS EDMS 22:39 21:30 Antibody Screen ordered. EDMS EDMS 22:47 21:09 Inpatient Admission cheryl cheryl 22:47 21:09 Telemetry/MedSurg (Inpatient) cheryl cheryl 22:47 21:09 Stable cheryl cheryl 22:47 21:09 new cheryl cheryl 22:47 21:09 have improved cheryl cheryl 22:47 21:09 Standard cheryl cheryl 22:47 21:09 cheryl cheryl 22:47 21:09 GI Bleed/ Gastrointestinal hemorrhage, unspecified - upper cheryl cheryl 22:47 21:09 Type 1 diabetes mellitus with hyperglycemia cheryl cheryl 22:47 21:09 Unspecified cirrhosis of liver cheryl cheryl 22:47 21:12 Anemia, unspecified cheryl cheryl 22:47 21:27 OkcindyYuriy chadwick la1 cheryl 22:47 21:40 Unspecified kidney failure cheryl cheryl :51 22:49 to [facility], [facility] cheryl 07/29 00:56 00:04 LACTATE+C.LAB.BRZ ordered. EDMS EDMS 01:21 07/28 22:51 to [facility], [facility] cheryl bb
--- NOTE | 2021-07-28 21:10 | ER ---
Nurse's Notes [facility] Name: Ana Dennis Age: 81 yrs Sex: Female : 1940 Arrival Date: 07/28/2021 Time: 17:21 Bed 14 Private MD: Diagnosis: Unspecified cirrhosis of liver;Type 1 diabetes mellitus with hyperglycemia;GI Bleed/ Gastrointestinal hemorrhage, unspecified-upper;Anemia, unspecified;Unspecified kidney failure Presentation: 07/28 18:03 Chief complaint: Patient's son or daughter states: Daughter states traveling back from [address] beginning at 0130 today. States she began vomiting blood clots >5xs today. Also c/o dark red bleeding in stool. Coronavirus screen: Vaccine status: Patient reports being unvaccinated. Client indicates they have traveled out of the [place] in the last 14 days. Client traveled to: [place]. Ebola Screen: Patient denies travel to an Ebola-affected area in the 21 days before illness onset. No symptoms or risks identified at this time. Patient reports travel to Ebola-affected area in the 21 days before illness onset. Patient reports having traveled to: [place] ( and Sunday(. Initial Sepsis Screen: Does the patient meet any 2 criteria? No. Patient's initial sepsis screen is negative. Does the patient have a suspected source of infection? No. Patient's initial sepsis screen is negative. Risk Assessment: Do you want to hurt yourself or someone else? Patient reports no desire to harm self or others. Onset of symptoms was July 28, 2021. 18:03 Method Of Arrival: Wheelchair [facility] 18:03 Acuity: ARNOLDO 3 7 Historical: - PMHx: 18:16 Diabetes - IDDM; Hypothyroidism; insomnia; Hypertensive disorder; 7 - PSHx: 18:16 hysterectomy; Cholecystectomy; bladder sling; 7 - Immunization history:: Pneumococcal vaccine status is unknown, Flu vaccine is not up to date. - Social history:: Smoking status: Patient denies any tobacco usage or history of. Screenin:25 Abuse screen: Denies threats or abuse. Nutritional screening: No deficits noted. st1 Tuberculosis screening: No symptoms or risk factors identified. Fall Risk None identified. No fall in past 12 months (0 pts). No secondary diagnosis (0 pts). IV access (20 points). Ambulatory Aid- None/Bed Rest/Nurse Assist (0 pts). Gait- Weak (10 pts.). Mental Status- Oriented to own ability (0 pts). Total Greene Fall Scale indicates Low Risk Score (25-44 pts). Fall prevention measures have been instituted. Side Rails Up X 2 Placed close to Nursing Station Frequent Obs/Assesments occuring Family Present and informed to notify staff if they need to leave bedside As available Patient and Family Educated on Fall Prevention Program and strategies. Assessment: 21:05 Reassessment: Daughter Brenda [phone]. Password for patient information [id number]. st1 23:10 Reassessment: Language line was called #[phone] , Riveter Helper stated the patient was not [facility] comfortable signing her blood transfusion consent. Patients daughter was called for blood transfusion consent, Kendall Murdock RN witnessed the consent. 07/29 00:50 Reassessment: Report was called to [facility] to Ye Thurston RN [phone]. [facility] Pain: Denies pain. 01:11 Reassessment: [facility] at bedside for transfer of pt to [facility] C-630. PT bb is awake and alert, resp unlabored. Blood infusing to L AC. IV sites intact, patent with no erythema or edema noted. Vital Signs: 07/28 18:03 BP 110 / 56; Resp 18; Temp 97.0(TE); Weight 63.05 kg; Height 5 ft. 2 in. (157.48 cm); ss7 18:03 Pulse 81; Pulse Ox 97% ; ss7 21:00 BP 135 / 65; Pulse 63; Resp 16; Pulse Ox 100% on R/A; st1 22:00 BP 143 / 64; Pulse 64; Resp 16; Pulse Ox 100% on R/A; st1 23:00 BP 159 / 65; Pulse 66; Resp 20; Pulse Ox 100% on R/A; st1 18 00:51 BP 142 / 58; Pulse 80; Resp 16; Pulse Ox 97% on R/A; st1 07/28 18:03 Body Mass Index 25.42 (63.05 kg, 157.48 cm) [facility] Vitals: 00:51 Cardiac Rhythm Assessment Regular. st1 ED Course: 07/28 17:21 Patient arrived in ED. mr 18:16 Triage completed. ss7 19:17 Kaela Larson, BOB is Primary Nurse. sf1 19:18 Tyler Hsu MD is Attending Physician. cheryl 19:32 Inserted saline lock: 22 gauge in right antecubital area, using aseptic technique. ds4 20:19 XRAY Chest (1 view) In Process Unspecified. EDMS 20:23 Inserted saline lock: 18 gauge in right antecubital area, using aseptic technique. sf1 Blood collected. 20:24 Type And Screen Sent. sf1 20:24 Basic Metabolic Panel Sent. sf1 20:24 Lipase Sent. sf1 20:24 LFT's Sent. sf1 20:24 Magnesium Sent. sf1 20:24 NT PRO-BNP Sent. sf1 20:24 PT-INR Sent. sf1 20:24 Troponin HS Sent. sf1 20:24 SARS-COV-2 RT PCR Sent. sf1 20:25 Patient has correct armband on for positive identification. Fall risk band placed. Bed st1 in low position. Call light in reach. Side rails up X2. Adult w/ patient. 20:27 SARS-COV-2 RT PCR (Document "Date of Onset" if Symptomatic) Sent. st1 21:02 Basic Metabolic Panel Sent. st1 21:05 Inserted saline lock: 20 gauge in left antecubital area, using aseptic technique. st1 21:07 Lucas Bowman MD is Hospitalizing Provider. cheryl 21:27 Yuiry Harrison MD is Hospitalizing Provider. la1 21:51 CT Abd/Pelvis - IV Contrast Only In Process Unspecified. EDMS 22:08 initiated a transfer with Miky from [facility]. [facility] 23:28 administrative approval given by Miky Viveros/ patient has been accepted to [address] bed C 630/ Dr. Osman accepted the patient in transfer/report to be called to [phone]. 07/29 01:19 No provider procedures requiring assistance completed. Patient transferred, IV remains bb in place. Administered Medications: 07/28 20:23 Drug: Zofran (Ondansetron) 4 mg Route: IVP; Site: right antecubital; sf1 07/29 01:20 Follow up: Response: No adverse reaction bb 07/28 20:50 Drug: ProTONIX (pantoprazole) 8 mg/hr Route: IV; Rate: 25 ml/hr; Site: left antecubital;[facility] 07/29 01:20 Follow up: IV Status: Infusion continued upon transfer 07/28 20:51 Drug: ProTONIX (pantoprazole) 80 mg Route: IVP; Site: right antecubital; [facility] 07/29 01:20 Follow up: Response: No adverse reaction 07/28 22:13 Drug: SandoSTATIN (octreotide) 25 mcg/h Route: IV; Rate: calculated rate; Site: right st1 antecubital; 07/29 01:20 Follow up: IV Status: Infusion continued upon transfer 07/28 22:14 Drug: SandoSTATIN (octreotide) 50 mcg Route: IV; Rate: calculated rate; Site: right st1 antecubital; 07/29 01:21 Follow up: IV Status: Completed infusion Outcome: 07/28 21:09 Decision to Hospitalize by Provider. [facility] 22:49 ER care complete, transfer ordered by . [facility] 07/29 01:18 Transferred by ground EMS to [facility], Transfer form completed. bb X-rays sent w/ patient. Condition: stable Instructed on the need for transfer. 01:21 Patient left the ED. bb Signatures: Dispatcher [employer] Tyler Hunt MD MD cha Rivera, Mary Candace Bassett RN RN bb Siddhartha Mendoza ds4 Marek Gray, INTERNATIONAL ACCOUNTANT-C INTERNATIONAL ACCOUNTANT-Cla1 Diana Sorenson [facility] Adilene Dowell RN RN st1 Kaela Larson RN RN sf1 Christine Beauchamp RN RN ss7 Corrections: (The following items were deleted from the chart) 07/28 20:50 20:24 ProTONIX (pantoprazole) 80 mg IVP in right antecubital rust st 23:49 22:08 initiated a transfer with Danyel from [facility] Transfer Center 2 mw2
[2021-07-28 21:12] LABS: Albumin 2.5 g/dL (3.4-5.0); Bilirubin Direct 0.2 mg/dL (0-0.2); Bilirubin Total 0.4 mg/dL (0.2-1.0); Magnesium 2.1 mg/dL (1.8-2.4); Potassium 4.5 mmol/L (3.5-5.1); Troponin High Sensitivity 36.2 pg/mL (<58.9)
[2021-07-28] MEDS ORDERED: OCTREOTIDE ACETATE 100 MCG/ML ONE (21:38)
[2021-07-28] MEDS ORDERED: NA CHLORIDE 0.9% 500 ML ONE (21:39)
--- NOTE | 2021-07-28 22:14 | RAD REPORT ---
EXAM DESCRIPTION: CT - Abdomen Pelvis W Contrast - 07/28/2021 9:51 pm CLINICAL HISTORY: ABD PAIN COMPARISON: Abdomen Pelvis W Contrast dated 09/24/2015 TECHNIQUE: Biphasic, helical CT imaging of the abdomen and pelvis was performed following 100 ml non -ionic IV contrast. No oral contrast administered. All CT scans are performed using dose optimization technique as appropriate and may include automated exposure control or mA/KV adjustment according to patient size. FINDINGS: Interstitial and patchy bilateral opacities present in each posterior lung base. Findings are new from 2016. No pneumothorax or pleural effusion. Cardiomegaly is present without pericardial e ffusion. Large hiatal hernia is present similar to comparison. No focal liver lesions seen. Capsule nodularity present. Pancreas and spleen show no suspicious findi ngs. There is borderline splenomegaly. Gallbladder is absent. No biliary tree dilatation. Symmetric renal function is seen with no hydronephrosis or suspicious renal mass. No pyelonephritis o r acute parenchymal process. Upper pole right renal cyst not significantly different from comparison. Small cyst is present lower pole left kidney. Medial inferior left cortical calcification present. N o adrenal abnormalities. Urinary bladder is contracted limiting detail. Pelvic floor laxity is presen t. Uterus is absent. Ovaries are absent or atrophic. No acute gastric finding. No dilated large or small bowel. Appendix is not clearly defined. No indire ct evidence for appendicitis. No acute colon process confirmed. No free air or pneumatosis. Mild stranding or edema changes are present in the peritoneal fat. No he rnia, mass or bulky lymphadenopathy. Disc and bone degenerative changes are present. Dense vascular calcifications are present. IMPRESSION: No obstruction, free air or surgically emergent finding. Nonspecific stranding or edema changes are present in the peritoneal fat, not associated with a speci fic bowel process. Nodular liver capsule indicating cirrhosis or other diffuse hepatic parenchymal disease. No focal les ions seen. Patchy bilateral interstitial and alveolar opacities in both lung bases suspicious for pneumonia.
[2021-07-28] MEDS ORDERED: ACETAMINOPHEN 325 MG TABLET ONE (23:43)
[2021-07-28] MEDS ORDERED: DIPHENHYDRAMINE 50 MG/ML VIAL ONE (23:44)
[2021-07-29] MEDS ORDERED: NA CHLORIDE 0.9% 250 ML ONE (00:23)
[2021-07-29 03:30] VITALS: TEMP 97
[2021-07-29 03:35] VITALS: BP 142/58; O2SAT 97
--- NOTE | 2021-07-29 13:06 | EKG ---
Test Date: 2021-07-28 Test Time: 20:10:17 Process Cheese Cooker: ALEKSANDRA MEASUREMENT RESULTS: Intervals: Rate: 77 OR: 146 QRSD: 84 QT: 418 QTc: 473 [place]: P: 35 OR: 146 QRS: 33 T: 70 INTERPRETIVE STATEMENTS: Normal sinus rhythm with sinus arrhythmia Normal ECG Compared to ECG 09/30/2016 09:39:25 Myocardial infarct finding no longer present Electronically Signed On 07-29-21 13:02:59 INTERNAL SPECIALIST by Juan Morfin
== END 2021-07-29 01:21 | disposition short-term general hospital (02) ==
LOC: ER 17:18
PROC: 30233N1 Transfusion of Nonautologous Red Blood Cells into Peripheral Vein, Percutaneous Approach (ICD-10-PCS; principal; 2021-07-29)
DX: D64.9 Anemia, unspecified (principal); E10.65 Type 1 diabetes mellitus with hyperglycemia; K74.60 Unspecified cirrhosis of liver; N19 Unspecified kidney failure; I10 Essential (primary) hypertension; Z20.822 Contact with and (suspected) exposure to COVID-19
CPT/HCPCS: 93005; 85025; 80048; 36415; 82140; 86900; 83735; 86850; 85610; 86901; 80076; 83605; 84484; 83690; 83880; 74177; 71045; 99285; 36430; U0003; Q9967; J1200; J2354 ×2; C9113; P9016; J7050 ×2; J7040; J2405

== ENCOUNTER 2021-09-27 09:36 | Emergency (ER) | payer OTHER ==
--- OUTSIDE RECORDS SUMMARY | 2021-09-27 09:39 | XMS REPORT | Continuity of Care Document ---
:1940 Author Organization [facility] t Address [address] [place] [address] Care Team Providers Name Role Phone SHARPLESS Primary Care Physician Unavailable LISETTE Attending Clinician Unavailable GUICHOF Attending Clinician Unavailable RASHIDA PERRY Admitting Clinician Unavailable Payers Payer Name Policy Type Policy Number Effective Date Expiration Date S rodri CARE IMPROVEMENT [id number] 2014 PLUS 00:00:00 MEDICAID OF [place] [id number] 2013 00:00:00 [employer]LL[employer] MEDICARE [id number] 2021 00:00:00 Problems Condition Condition Condition Status Onset Resolution Last Treating Co mments Source Name Details Category Date Date Treatment Clinician Date Gout Gout [facility] ion), Memoria benign benign l Outpati ent Clinics 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 Mallory kes - athy athy Memoria associated associated l with other with other Ou tpati specified specified ent diabetes diabetes Clinic s mellitus mellitus Seasonal Seasonal Problem Active [facility] allergic allergic [facility] - rhinitis rhinitis Memori a l Outpati ent Clinics 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) Clin ics 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 Memori a joints joints l Outpati ent Clinics 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 [facility] chronic chronic [facility] - illness illness Memoria l Outpati ent Clinics 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 Luke s - and and Memoria ureter, ureter, l unspecifie unspecifie Ou tpati d d ent Clinics 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 Memoria l Outpati ent Clinics Primary Primary Problem Active [facility] osteoarthr osteoarthr Mallory kes - itis of itis of Memoria right knee right knee l Outpati ent Clinics Proteinuri Proteinuri Problem Active C [facility] [...] s - Memoria l Outpati ent Clinics Allergies, Adverse Reactions, Alerts Allergy Allergy Status Severity Reaction(s) Onset Inactive Treating Comm ents Source Name Type Date Date Clinician HYDRALAZ Allergy Active Itching [facility] TRAMADOL Allergy Active Low Rash [facility] 7-24 00:00: 00 PENICILL Allergy Active Med Rash [facility] INS 01-01 00:00: 00 ACETAMIN Allergy Active Med Itching [facility] OPHEN 01-01 00:00: 00 CIPROFLO Allergy Active Low Rash [facility] XACIN 01-01 (BULK) 00:00: 00 penicill Adverse Active Info Not [facility] in Reaction Available [facility] Ultram Adverse Active Info Not [facility] Reaction Available [facility] Motrin Adverse Active Info Not [facility] Reaction Available [facility] Ibuprofe Adverse Active Info Not [facility] n Reaction Available [facility] Ciproflo Adverse Active Info Not [facility] xacin Reaction Available [facility] Lisinopr Adverse Active Info Not [facility] il Reaction Available [facility] Medications Ordered Filled Start Stop Current Ordering Indication Dosage Frequency Signature Comments Components Source Medication Medication Date Date Medication? Clinician (SIG) Name Name Joyce Cook Yes Ramakrishna [address] [facility] Yepez [facility] - [facility] l [facility] ent Clinics Levothyroxi Levothyroxi Yes Ramakrishna FRAGA VON [facility] ne Sodium ne Sodium Yepez TABLETA Mallory kes - POR VIA Memoria ORAL CADA l MANANA ON Outpati A EMPTY ent STOMACH Clinics Bystolic Bystolic Yes Ramakrishna [address] [facility]pez [facility] Lasix Lasix Yes Ramakrishna [address] [address] Yepez [facility] Clinics Amlodipine Amlodipine Yes Ramakrishna FRAGA VON [facility] Besylate Besylate Yepez TABLETA Luke s - VON VEZ AL Memoria ALAN POR l VIA ORAL [facility] ent Clinics Amlodipine Amlodipine Yes Ramakrishna [address] [facility] Besylate Besylate Yepez [facility] - [facility]oria l [facility] ent Clinics Levothyroxi Levothyroxi Yes Ramakrishan [address] [facility] ne Sodium ne Sodium Yepez on an Luke s - empty Memoria stomach in l [facility] Venlafaxine Venlafaxine Yes Ramakrishna 1-[address] HCl HCl Yepez with food [facility]ukes - PRN Nerve Memoria Pain l [facility] ent Clinics TobraDex TobraDex Yes Ramakrishna [address] Yepez applicatio [facility] - n Memoria l [facility] ent Clinics Metformin Metformin Yes Ramakrishna [address] [address] HCl HCl Yepez with meals [facility] Vitamin Vitamin Yes Ramakrishna not [facility] B-12 B-12 Yepez defined [facility] Ferrous Ferrous Yes Ramakrishna [address] Sulfate Sulfate Yepez [facility] Lisinopril Lisinopril Yes Ramakrishna [address] [facility] Yepez [facility] Vital Signs Vital Name Observation Time Observation Value Comments Source WEIGHT 2021-07-31 05:00:00 69.9 kg WEIGHT 2021-07-30 06:00:00 64 kg WEIGHT 2021-07-29 06:00:00 64 kg HEIGHT 2021-07-29 02:39:00 157.5 cm WEIGHT 2021-07-29 02:39:00 63.05 kg WEIGHT 2021-07-31 05:00:00 69.9 kg WEIGHT 2021-07-30 06:00:00 64 kg WEIGHT 2021-07-29 06:00:00 64 kg HEIGHT 2021-07-29 02:39:00 157.5 cm WEIGHT 2021-07-29 02:39:00 63.05 kg Procedures This patient has no known procedures. Encounters Start End Encounter Admission Attending Care Care Encounter Source Date/Time Date/Time Type Type Clinicians Facility Department ID 2021-07-29 2021-07-31 Inpatient ER BOWEN NGUYEN [facility] G[facility] [id number] [facility] 02:24:00 15:13:00 2019-01-27 2019-01-27 Outpatient Janine Calvert [id number] [facility] 16:32:00 16:32:00 t [facility] 2019-01-23 2019-01-23 Outpatient Janine Mehtat [id number] [facility] 16:19:00 16:19:00 t [facility] 2019-01-10 2019-01-10 Outpatient Janine Calvert [id number] [facility] 09:30:00 09:30:00 t [facility] 2019-01-02 2019-01-02 [facility] [id number] [facility] 08:45:00 08:45:00 [place] [employer] [facility] Clinics 2018-12-26 2018-12-26 [facility] [id number] 08:15:00 08:15:00 [place] [employer] [facility] Out[facility] ent Clinics 2018-10-03 2018-10-03 [facility] [id number] 08:30:00 08:30:00 [place] [employer] [facility] Outpat[facility] ent Clinics 2018-09-26 2018-09-26 [facility] [id number] 08[facility]30:00 08:30:00 [place] [employer] [facility] Medicine Outpati ent Clinics 2018-09-06 2018-09-06 [facility] [id number] 10:25:00 10:25:00 [place] [employer] [facility] Outpati ent Clinics 2018-09-02 2018-09-02 [facility] [id number] 10:15:00 10:15:00 [place] [employer] [facility] Outpati ent Clinics 2018-07-05 2018-07-05 [facility] [id number] [address] 08:30:00 08:30:00 [place] [employer] [facility] Medicine Outpati ent Clinics 2018-06-28 2018-06-28 [facility] [id number] 08:15:00 08:15:00 [place] [employer] [facility] Medicine Outpati ent Clinics 2018-05-28 2018-05-28 [facility] [id number] 14:00:00 14:00:00 t [facility] Clinics 2018-02-04 2018-02-04 [facility] [id number] 08:30:00 08:30:[address] [facility] Medicine l Medicine Outpati ent Clinics 2018-01-28 2018-01-28 [facility] [id number] 08:15:00 08:15:[address] [facility] Medicine l Medicine Outpati ent Clinics 2017-12-20 2017-12-20 [facility] [id number] 14:15:00 14:15:[address] [facility] Medicine l Medicine Outpati ent Clinics 2017-12-11 2017-12-11 [facility] [id number] 12:00:00 12:00:[address] [facility] Medicine l Medicine Outpati ent Clinics 2017-12-04 2017-12-04 [facility] [id number] 08:15:00 08:15:00 [place] [employer] [facility] - [facility] Medicine l Medicine Outpati ent Clinics 2017-10-29 2017-10-29 [facility] [id number] 10:15:00 10:15:[address] [facility] - [facility] Medicine l Medicine Outpati ent Clinics 2017-10-22 2017-10-22 [facility] [id number] 07:53:00 07:53:00 [place] [employer] [facility] - [facility] Medicine l Medicine Outpati ent Clinics 2017-10-19 2017-10-19 [facility] [id number] 09:50:00 09:50:[address] [facility] - [facility] Medicine l Medicine Outpati ent Clinics 2017-10-19 2017-10-19 [facility] [id number] 08:15:00 08:15:[address] [facility] Medicine l Medicine Outpati ent Clinics 2017-09-26 2017-09-26 [facility] [id number] 16:20:00 16:20:[address] [facility] Medicine l Medicine Outpati ent Clinics 2017-09-24 2017-09-24 [facility] [id number] 08:49:00 08:49:00 [facility] 2017-09-24 2017-09-24 [facility] [id number] 08:45:00 08:45:00 [facility] Results Test Description Test Time Test Comments Results Result Comments Source ANTI-MITOCHONDRIAL AB, REFLEX TO TITER 2021-08-05 10:05:23 Test Item Value Reference Range Interpretation Comme nts SCAN RESULT (test code = 3434986) ABRAHAM TITER AND [id number] 09:19:42 Test Item Value Reference Range Interpretation Comments ABRAHAM TITER (BEAKER) (test code = :640 1541) ABRAHAM PATTERN (BEAKER) (test code = Speckled 1781) ANTI-NUCLEAR ANTIBODY (ABRAHAM)2021-08-02 09:19:35 Test Item Value Reference Range Interpretation Comments ANTI-NUCLEAR ANTIBODY (ABRAHAM) (BEAKER) Positive Negative A (test code = 418) Test performed by IFA method.PHOSPHATIDYLETHANOL, [id number] 08:44:42 Test Item Value Reference Range Interpretation Comments PHOSPHATIDYLETHANOL (PETH) See scanned (test code = 0687474) report See scanned reportPERIPHERAL BLOOD SMEAR - HOLD [id number] 12:57:38 Test Item Value Reference Range Interpretation Comments PERIPHERAL SMEAR SAVE (BEAKER) (test saved code = 1815) POCT-GLUCOSE [id number] 11:15:01 Test Item Value Reference Range Interpretation Comments POC-GLUCOSE METER 154 mg/dL 70-110 H : [facility] ([facility]AKER[facility] (test code [facility], = 1538) 95676: [employer] Inspector/Techni donn ID = [id number] for Madeleine Garza, Gene sis RETICULOCYTE [id number] 11:06:47 Test Item Value Reference Range Interpretation Comments RETICULOCYTE COUNT PCT (BEAKER) (test 3.5 % 0.5-1.7 H code = 575) [employer] Inspector ID - [id number] ID - [id number] W/PLT COUNT & AUTO DIFFERENTIAL 2021-07-31 10:59:42 Test Item Value Reference Range Interpretation Comments WHITE BLOOD CELL COUNT (BEAKER) 3.7 K/ L 3.5-10.5 (test code = 775) RED BLOOD CELL COUNT (BEAKER) 2.58 M/ L 3.93-5.22 L (test code = 761) HEMOGLOBIN (BEAKER) (test code = 7.6 GM/DL 11.2-15.7 L 410) HEMATOCRIT (BEAKER) (test code = 23.7 % 34.1-44.9 L 411) MEAN CORPUSCULAR VOLUME (BEAKER) 91.9 fL 79.4-94.8 (test code = 753) MEAN CORPUSCULAR HEMOGLOBIN 29.5 pg 25.6-32.2 (BEAKER) (test code = 751) MEAN CORPUSCULAR HEMOGLOBIN CONC 32.1 GM/DL 32.2-35.5 L (BEAKER) (test code = 752) RED CELL DISTRIBUTION WIDTH 16.3 % 11.7-14.4 H (BEAKER) (test code = 412) PLATELET COUNT (BEAKER) (test code 49 K/CU MM 150-450 L = 756) MEAN PLATELET VOLUME (BEAKER) 11.5 fL 9.4-12.3 (test code = 754) NUCLEATED RED BLOOD CELLS (BEAKER) 0 /100 WBC 0-0 (test code = 413) NEUTROPHILS RELATIVE PERCENT 60 % (BEAKER) (test code = 429) LYMPHOCYTES RELATIVE PERCENT 18 % (BEAKER) (test code = 430) MONOCYTES RELATIVE PERCENT 13 % (BEAKER) (test code = 431) EOSINOPHILS RELATIVE PERCENT 7 % (BEAKER) (test code = 432) BASOPHILS RELATIVE PERCENT 1 % (BEAKER) (test code = 437) NEUTROPHILS ABSOLUTE COUNT 2.25 K/ L 1.56-6.13 (BEAKER) (test code = 670) LYMPHOCYTES ABSOLUTE COUNT 0.67 K/ L 1.18-3.74 L (BEAKER) (test code = 414) MONOCYTES ABSOLUTE COUNT (BEAKER) 0.49 K/ L 0.24-0.36 H (test code = 415) EOSINOPHILS ABSOLUTE COUNT 0.26 K/ L 0.04-0.36 (BEAKER) (test code = 416) BASOPHILS ABSOLUTE COUNT (BEAKER) 0.02 K/ L 0.01-0.08 (test code = 417) IMMATURE GRANULOCYTES-RELATIVE 1 % 0-1 PERCENT (BEAKER) (test code = 2801) POCT-GLUCOSE [id number] 07:53:56 Test Item Value Reference Range Interpretation Comments POC-GLUCOSE METER 147 mg/dL 70-110 H : TESTED Juan Nichols [facility] 6720 (BEAKER) (test code = [place], 1538) [id number]: [employer] Inspector/Techni donn ID = [id number] for DE KEVEN LLOYD COMPREHENSIVE METABOLIC [id number] 07:04:06 Test Item Value Reference Range Interpretation Comments TOTAL PROTEIN 6.1 gm/dL 6.0-8.3 Specimen sligh tly (BEAKER) (test code = hemoly zed 770) ALBUMIN (BEAKER) 2.5 g/dL 3.5-5.0 L Specimen sl ightly (test code = 1145) hemolyzed ALKALINE PHOSPHATASE 151 U/L 40-150 H (BEAKER) (test code = 346) BILIRUBIN TOTAL 0.5 mg/dL 0.2-1.2 Specimen sli ghtly (BEAKER) (test code = hemoly zed 377) SODIUM (BEAKER) (test 135 meq/L 136-145 L code = 381) POTASSIUM (BEAKER) 4.9 meq/L 3.5-5.1 Specimen slightly (test code = 379) hemolyzed CHLORIDE (BEAKER) 112 meq/L 98-107 H (test code = 382) CO2 (BEAKER) (test 15 meq/L 22-29 L code = 355) BLOOD UREA NITROGEN 48 mg/dL 7-21 H (BEAKER) (test code = 354) CREATININE (BEAKER) 1.55 mg/dL 0.57-1.25 H Specimen slightly (test code = 358) hemolyzed GLUCOSE RANDOM 150 mg/dL 70-105 H (BEAKER) (test code = 652) CALCIUM (BEAKER) 7.9 mg/dL 8.4-10.2 L (test code = 697) AST (SGOT) (BEAKER) 38 U/L 5-34 H Specimen slightly (test code = 353) hemolyzed ALT (SGPT) (BEAKER) 21 U/L 6-55 Specimen slightly (test code = 347) hemolyzed EGFR (BEAKER) (test 32 mL/min/1.73 ESTIMA NICOLASA GFR IS code = 1092) sq m NOT ACCURATE CREATININE CLEARANCE IN PREDICTING GLOMERULAR FILTRATION RATE . ESTIMATED GFR I S NOT APPLICABLE FOR DIALYSIS PATIEN TS. [employer] Inspector ID - RADU MLACTATE DEHYDROGENASE (LDH)2021-07-31 07:03:24 Test Item Value Reference Range Interpretation Comments LACTATE DEHYDROGENASE 320 U/L 125-220 H Specim en slightly (White Source) (test code = hemoly zed 635) [employer] Inspector ID - RADU MTSH/FREE T4 IF [id number] 06:30:31 Test Item Value Reference Range Interpretation Comments THYROID STIMULATING HORMONE 2.363 uIU/mL 0.350-4.940 (JUDI) (test code = 772) [employer] Inspector ID - RADU MPROTHROMBIN TIME/[id number] 06:01:35 Test Item Value Reference Range Interpretation Comments PROTIME (JUDI) 14.8 seconds 11.9-14.2 H (test code = 759) INR (ANICETOT[employer]pp[employer], an [employer]) (test 1.17 See_Comment [Automat ed message] code = 370) The system DocSend generated this result transmitted ref erence range: <=5.90. The reference range was not used to int erpret this result as normal/abnormal . RECOMMENDED COUMADIN/WARFARIN INR THERAPY RANGESSTANDARD DOSE: 2.0 - 3.0 Includes: PROPHYLAXIS forvenous thrombosis, systemic embolization; TREATMENT for venous thrombosis and/or pulmonary embolus.HIGH RISK: Target INR is 2.5-3.5 for patients with mechanical heart valves.POCT-GLUCOSE [id number] 23:59:14 Test Item Value Reference Range Interpretation Comments POC-GLUCOSE METER 157 mg/dL 70-110 H : TESTED A T [facility] 6720 (White Source) (test code = [facility], 1538) 30980: Pl[employer] Inspector/Techni donn ID = [id number] for KIMBERLY MAGALLANESI POCT-GLUCOSE [id number] 16:43:29 Test Item Value Reference Range Interpretation Comments POC-GLUCOSE METER 159 mg/dL 70-110 H : TESTED A T [facility] 6720 (White Source) (test code = [facility], 1538) 93837: Plastics And Compos[employer] Inspector/Techni donn ID = [id number] for DANA ARTIS POCT-GLUCOSE [id number] 11:16:17 Test Item Value Reference Range Interpretation Comments POC-GLUCOSE METER 227 mg/dL 70-110 H : TESTED A T [facility] 6720 (BEAKER) (test code = [place], 1538) 09253: [employer] Inspector/Techni donn ID = [id number] for DANA ARTIS COMPREHENSIVE METABOLIC [id number] 10:53:34 Test Item Value Reference Range Interpretation Comments TOTAL PROTEIN 5.8 gm/dL 6.0-8.3 L (BEAKER) (test code = 770) ALBUMIN (BEAKER) 2.6 g/dL 3.5-5.0 L (test code = 1145) ALKALINE PHOSPHATASE 155 U/L 40-150 H (BEAKER) (test code = 346) BILIRUBIN TOTAL 0.6 mg/dL 0.2-1.2 (BEAKER) (test code = 377) SODIUM (BEAKER) (test 132 meq/L 136-145 L code = 381) POTASSIUM (BEAKER) 4.8 meq/L 3.5-5.1 (test code = 379) CHLORIDE (BEAKER) 108 meq/L 98-107 H (test code = 382) CO2 (BEAKER) (test 21 meq/L 22-29 L code = 355) BLOOD UREA NITROGEN 47 mg/dL 7-21 H (BEAKER) (test code = 354) CREATININE (BEAKER) 1.55 mg/dL 0.57-1.25 H (test code = 358) GLUCOSE RANDOM 228 mg/dL 70-105 H (BEAKER) (test code = 652) CALCIUM (BEAKER) 7.9 mg/dL 8.4-10.2 L (test code = 697) AST (SGOT) (BEAKER) 40 U/L 5-34 H (test code = 353) ALT (SGPT) (BEAKER) 27 U/L 6-55 (test code = 347) EGFR (BEAKER) (test 32 mL/min/1.73 ESTIMA NICOLASA GFR IS code = 1092) sq m NOT ACCURATE CREATININE CLEARANCE IN PREDICTING GLOMERULAR FILTRATION RATE . ESTIMATED GFR I S NOT APPLICABLE FOR DIALYSIS PATIEN TS. [employer] Com[employer] Inspector ID - RADU MPROTHROMBIN TIME/[id number] 10:47:24 Test Item Value Reference Range Interpretation Comments PROTIME (BEAKER) 16.1 seconds 11.9-14.2 H (test code = 759) INR (BEAKER) (test 1.31 See_Comment [Automat ed message] code = 370) The system DocSend generated this result transmitted ref erence range: <=5.90. The reference range was not used to int erpret this result as normal/abnormal . RECOMMENDED COUMADIN/WARFARIN INR THERAPY RANGESSTANDARD DOSE: 2.0 - 3.0 Includes: PROPHYLAXIS forvenous thrombosis, systemic embolization; TREATMENT for venous thrombosis and/or pulmonary embolus.HIGH RISK: Target INR is 2.5-3.5 for patients with mechanical heart valves.CBC W/PLT COUNT & AUTO DIFFERENTIAL 2021-07-30 10:27:59 Test Item Value Reference Range Interpretation Comments WHITE BLOOD CELL COUNT (BEAKER) 4.1 K/ L 3.5-10.5 (test code = 775) RED BLOOD CELL COUNT (BEAKER) 2.55 M/ L 3.93-5.22 L (test code = 761) HEMOGLOBIN (BEAKER) (test code = 7.4 GM/DL 11.2-15.7 L 410) HEMATOCRIT (BEAKER) (test code = 23.8 % 34.1-44.9 L 411) MEAN CORPUSCULAR VOLUME (BEAKER) 93.3 fL 79.4-94.8 (test code = 753) MEAN CORPUSCULAR HEMOGLOBIN 29.0 pg 25.6-32.2 (BEAKER) (test code = 751) MEAN CORPUSCULAR HEMOGLOBIN CONC 31.1 GM/DL 32.2-35.5 L (BEAKER) (test code = 752) RED CELL DISTRIBUTION WIDTH 16.8 % 11.7-14.4 H (BEAKER) (test code = 412) PLATELET COUNT (BEAKER) (test code 68 K/CU MM 150-450 L = 756) MEAN PLATELET VOLUME (BEAKER) 12.1 fL 9.4-12.3 (test code = 754) NUCLEATED RED BLOOD CELLS (BEAKER) 0 /100 WBC 0-0 (test code = 413) NEUTROPHILS RELATIVE PERCENT 68 % (BEAKER) (test code = 429) LYMPHOCYTES RELATIVE PERCENT 13 % (BEAKER) (test code = 430) MONOCYTES RELATIVE PERCENT 14 % (BEAKER) (test code = 431) EOSINOPHILS RELATIVE PERCENT 5 % (BEAKER) (test code = 432) BASOPHILS RELATIVE PERCENT 1 % (BEAKER) (test code = 437) NEUTROPHILS ABSOLUTE COUNT 2.80 K/ L 1.56-6.13 (BEAKER) (test code = 670) LYMPHOCYTES ABSOLUTE COUNT 0.52 K/ L 1.18-3.74 L (BEAKER) (test code = 414) MONOCYTES ABSOLUTE COUNT (BEAKER) 0.56 K/ L 0.24-0.36 H (test code = 415) EOSINOPHILS ABSOLUTE COUNT 0.20 K/ L 0.04-0.36 (BEAKER) (test code = 416) BASOPHILS ABSOLUTE COUNT (BEAKER) 0.03 K/ L 0.01-0.08 (test code = 417) IMMATURE GRANULOCYTES-RELATIVE 1 % 0-1 PERCENT (BEAKER) (test code = 2801) POCT-GLUCOSE [id number] 07:32:24 Test Item Value Reference Range Interpretation Comments POC-GLUCOSE METER 94 mg/dL 70-110 : TESTED A T [facility] 6720 (BEAKER) (test code = [facility], 1538) 78804: Plastics [employer] Compos[employer] Inspector/Techni donn ID = [id number] for DIALFARAZ TITUS DANA POCT-GLUCOSE [id number] 23:53:38 Test Item Value Reference Range Interpretation Comments POC-GLUCOSE METER 307 mg/dL 70-110 H : TESTED A T [facility] 6720 (BEAKER) (test code = [facility], 1538) 52319: Plastics [employer] Composites Inspector/Techni donn ID = [id number] for UBri MILADIS, NATALY HEMOGLOBIN AND [id number] 18:11:06 Test Item Value Reference Range Interpretation Comments HEMOGLOBIN (BEAKER) (test code = 8.2 GM/DL 11.2-15.7 L 410) HEMATOCRIT (BEAKER) (test code = 26.2 % 34.1-44.9 L 411) Plastics And Composites Inspector ID - [id number]-GLUCOSE [id number] 18:07:50 Test Item Value Reference Range Interpretation Comments POC-GLUCOSE METER 150 mg/dL 70-110 H : TESTED A T [facility] 6720 (BEAKER) (test code = [facility], 1538) 98182: Plastics And Composites Inspector/Techni donn ID = [id number] for KEVEN RAMIREZ POCT-GLUCOSE [id number] 16:13:46 Test Item Value Reference Range Interpretation Comments POC-GLUCOSE METER 134 mg/dL 70-110 H : TESTED A T [facility] 6720 (JUDI) (test code [place], = 1538) 70582: Pl[employer] Com[employer] Inspector/Techni donn ID = [id number] for Willian on, Jelly U/S, ABDOMINAL, [id number] 15:32:00Reason for exam:->Suspected liver cirrhosis.[facility] : 1940 Sex: FFINAL REPORT Abdominal ultrasound dated 07/29/2021 Clinical information: please evaluate for PVT Comment: Real-time transabdominal ultrasound was performed. Liver is normal in size and measures 11.1 cm in length. The echogenicity of the liver is heterogeneous. No focal lesion is noted in the liver. Spleen is enlarged measuring 12.5 cm in length. Gallbladder is is not visualized. No biliary dilatation is seen. Common bile duct measures 8 mm in diameter. Main portal veinmeasures 12 mm in diameter. Pancreas is visualized and unremarkable. Right kidney measures 10.6 x 4.8 x 4.0 cm. Left kidney measures 10.5 x 4.8 x 3.9 cm. Echogenicity of both kidney is normal. No hydronephrosis or solid mass seen in either kidney. A 3.8 x 2.8 x 3.4 cm cyst is seen in the right kidney. A 1.1 x 1.0 x 1.3 cm cyst is seen in the left kidney. No ascites present in the abdomen. Abdominal aorta is normal in caliber. The IVC is patent. Real-time Color and Spectral doppler ultrasound of the abdomen was performed. Main portal vein measures 1.2 cm in diameter. There is hepatopedal flow in the main portal vein with velocity 16 cm/sec. Right and left portal veins are patent. Proper hepatic artery, right hepatic artery, and left hepatic artery are patent with resistive indices 0.8, 0.79,and 0.84 respectively. IVC, Hepatic venous confluence, right HV, middle HV and left HV are patent. Impression: 1. Heterogeneous appearing liver without suspicious hepatic mass.2. Splenomegaly.3. Bilateral renal cysts.4. Patent hepatic artery and portal vein. Signed: Lissett Joya MDR[facility]ort Verified Date/Time: 07/29/2021 15:32:55 U/S, DUPLEX, [id number] 15:32:00Reason for exam:->[facility] : 1940 Sex: FFINAL REPORT Abdominal ultrasound dated 07/29/2021 Clinical information: please evaluate for PVT Comment: Real-time transabdominal ultrasound was performed. Liver is normal in size and measures 11.1 cm in length. The echogenicity of the liver is heterogeneous. No focal lesion is noted in the liver. Spleen is enlarged measuring 12.5 cm in length. Gallbladder is is not visualized. No biliary dilatation is seen. Common bile duct measures 8 mm in diameter. Main portal veinmeasures 12 mm in diameter. Pancreas is visualized and unremarkable. Right kidney measures 10.6 x 4.8 x 4.0 cm. Left kidney measures 10.5 x 4.8 x 3.9 cm. Echogenicity of both kidney is normal. No hydronephrosis or solid mass seen in either kidney. A 3.8 x 2.8 x 3.4 cm cyst is seen in the right kidney. A 1.1 x 1.0 x 1.3 cm cyst is seen in the left kidney. No ascites present in the abdomen. Abdominal aorta is normal in caliber. The IVC is patent. Real-time Color and Spectral doppler ultrasound of the abdomen was performed. Main portal vein measures 1.2 cm in diameter. There is hepatopedal flow in the main portal vein with velocity 16 cm/sec. Right and left portal veins are patent. Proper hepatic artery, right hepatic artery, and left hepatic artery are patent with resistive indices 0.8, 0.79,and 0.84 respectively. IVC, Hepatic venous confluence, right HV, middle HV and left HV are patent. Impression: 1. Heterogeneous appearing liver without suspicious hepatic mass.2. Splenomegaly.3. Bilateral renal cysts.4. Patent hepatic artery and portal vein. Signed: Lissett Joya MDReport Verified Date/Time: 07/29/2021 15:32:55 VITAMIN B12 AND [id number] 12:33:19 Test Item Value Reference Range Interpretation Comments VITAMIN B12 298 pg/mL 213-816 (Paver Downes AssociatesAKER) (test code = 774) FOLATE ([employer]) 10.00 ng/mL See_Comment [Automated message] (test code = 362) The system which generated this result transmitted ref erence range: >=7.00. The reference range was not used to interpr et this result as normal/abnormal . [employer] Inspector ID - ERIK [id number] 12:20:14 Test Item Value Reference Range Interpretation Comments FERRITIN (BEAKER) (test code = 47.72 ng/mL 5.00-275.00 361) [employer] Inspector ID - ERIK GPOCT-GLUCOSE [id number] 12:00:58 Test Item Value Reference Range Interpretation Comments POC-GLUCOSE METER 151 mg/dL 70-110 H : TESTED A T [facility] 6720 (Paver Downes AssociatesSOFIA) (test code = [place], 1538) [address]: [employer] Inspector/Techni donn ID = [id number] for KEVEN RAMIREZ SARS-COV2/RT-PCR ([facility])2021-07-29 11:29:59 Test Item Value Reference Range Interpretation Comments SARS-COV2/RT-PCR Negative Negative The SARS-Co V-2 target (test code = nucleic acids a re not [id number]) detected in thi s specimen. Negative result s do not preclude SARS-C oV-2 infection and s hould not be used as the renée e basis for patient managem ent decisions. Nega tive results must be combine d with clinical observ ations, patient history , and epidemiological information. A false negativ e result may occur if a spec imen is improperly christa ected, transported or handled. This SARS CoV-2 test is a rapid, real-tena e RT-PCR test intended for th e qualitative detection of nu cleic acid from SARS-CoV-2 in a nasopharyngeal swab specimen collected from individuals suspected of CO VID-19 by their healthcar e provider. This test has been authorized by FDA under an EUA for use by authorized laboratories. This test is only authorized for the duration of the declaration that circumstances exist justifying the authorization of emergency use of in vitro diagnostic tests for detection and/or diagnosis of COVID-19 under Section 564(b)(1) of the Federal Food, Drug and Cosmetic Act, 21 U.S.C. 360bbb- 3(b)(1), unless the authorization is terminated or revoked sooner. Fact Sheet for Healthcare Providers: https://www.[employer]/Documents/Xpert%20Xpress%20SARS%20CoV-2/Fact%20Sheets/529-2072%20SARS-COV -2%20HEALTHCARE%20PROVIDERS%20FACT%20SHEET.pdf Fact Sheet for Healthcare Patients: https://www.[employer]/Documents/Xpert %20Xpress%20SARS%20CoV-2/Fact%20Sheets/735-8590%81VRCP-IIP-6%20PATIENT%20FACT%20 SHEET.pdfHEPATITIS B SURFACE [id number] 10:58:26 Test Item Value Reference Range Interpretation Comments HEPATITIS B SURFACE ANTIBODY < mIU/mL <8.0 (BESOFIA) (test code = 647) [employer] Inspector ID - DBHEPATITIS A ANTIBODY, [id number] 10:58:21 Test Item Value Reference Range Interpretation Comments HEPATITIS A IGG ANTIBODY (BEAKER) Reactive Nonreactive A (test code = 2797) [employer] Inspector ID - DBALPHA FETOPROTEIN (AFP), TUMOR [id number] 10:58:15 Test Item Value Reference Range Interpretation Comments ALPHA-FETOPROTEIN (BEAKER) (test code < ng/mL <10.0 = 1094) [employer] Inspector ID - DBHEPATITIS PANEL, [id number] 10:52:47 Test Item Value Reference Range Interpretation Comments HEPATITIS A IGM ANTIBODY (BEAKER) Nonreactive Nonreactive (test code = 498) HEPATITIS B CORE IGM ANTIBODY Nonreactive Nonreactive (BEAKER) (test code = 645) HEPATITIS C ANTIBODY (BEAKER) Nonreactive Nonreactive (test code = 367) HEPATITIS B SURFACE ANTIGEN (2) Nonreactive Nonreactive (BEAKER) (test code = 2585) [employer] Inspector ID - DBHEPATITIS B CORE ANTIBODY, [id number] 10:50:08 Test Item Value Reference Range Interpretation Comments HEPATITIS B CORE TOTAL ANTIBODY Nonreactive Nonreactive (BEAKER) (test code = 497) [employer] Inspector ID - [id number] 10:41:23 Test Item Value Reference Range Interpretation Comments ALPHA-1 ANTITRYPSIN 160.10 mg/dL 90.00-200.00 Specimen slightly (BEAKER) (test code = hemoly zed 502) [employer] Inspector ID - DBHEMOGLOBIN [id number] 10:39:46 Test Item Value Reference Range Interpretation Comments HEMOGLOBIN A1C 7.3 % See_Comment H [Automated m essage] ELECTROPHORESIS (BEAKER) The system which (test code = 3811) generated this result transmitted ref erence range: <=5.6%. The reference range was not used to int erpret this result as normal/abnormal . "The A1c is measured using a NGSP-certified method. HbA1c value equal to or greater than 6.5% as thediagnosis cutoff for diabetes. An HbA1c value of 5.7- 6.4% indicates increased risk for diabetes (prediabetes)."[employer] Inspector ID - ADMOperator ID - ADMIRON, TIBC, % SAT. (WITHOUT FERRITIN)2021-07-29 10:27:38 Test Item Value Reference Range Interpretation Comments IRON (BEAKER) (test code = 547) 269.0 ug/dL 40.0-160.0 H TOTAL IRON BINDING CAPACITY 318 ug/dL 250-450 (BEAKER) (test code = 769) IRON % SATURATION (2) (BEAKER) 85 % 20-55 H (test code = 2590) [employer] Inspector ID - DBHEMOGLOBIN AND [id number] 10:01:31 Test Item Value Reference Range Interpretation Comments HEMOGLOBIN (BEAKER) (test code = 7.8 GM/DL 11.2-15.7 L 410) HEMATOCRIT (BEAKER) (test code = 25.9 % 34.1-44.9 L 411) [employer] Inspector ID - [id number] FUNCTION [id number] 06:13:33 Test Item Value Reference Range Interpretation Comments TOTAL PROTEIN (BEAKER) 6.1 gm/dL 6.0-8.3 Speci men slightly (test code = 770) hemolyzed ALBUMIN (BEAKER) (test 2.7 g/dL 3.5-5.0 L Speci men slightly code = 1145) hemolyzed BILIRUBIN TOTAL 1.4 mg/dL 0.2-1.2 H Specimen sli ghtly (BEAKER) (test code = hemoly zed 377) BILIRUBIN DIRECT 0.6 mg/dL 0.1-0.5 H Specimen sl ightly (BEAKER) (test code = hemoly zed 706) ALKALINE PHOSPHATASE 134 U/L 40-150 (BEAKER) (test code = 346) AST (SGOT) (BEAKER) 29 U/L 5-34 Specimen slightly (test code = 353) hemolyzed ALT (SGPT) (BEAKER) 20 U/L 6-55 Specimen slightly (test code = 347) hemolyzed [employer] Inspector ID - ERIK GBASIC METABOLIC [id number] 06:13:32 Test Item Value Reference Range Interpretation Comments SODIUM (BEAKER) 139 meq/L 136-145 (test code = 381) POTASSIUM (BEAKER) 4.7 meq/L 3.5-5.1 Specimen slightly (test code = 379) hemolyzed CHLORIDE (BEAKER) 114 meq/L 98-107 H (test code = 382) CO2 (BEAKER) (test 18 meq/L 22-29 L code = 355) BLOOD UREA NITROGEN 53 mg/dL 7-21 H (BEAKER) (test code = 354) CREATININE (BEAKER) 1.24 mg/dL 0.57-1.25 Specimen slightly (test code = 358) hemolyzed GLUCOSE RANDOM 114 mg/dL 70-105 H (BEAKER) (test code = 652) CALCIUM (BEAKER) 8.3 mg/dL 8.4-10.2 L (test code = 697) EGFR (BEAKER) (test 42 mL/min/1.73 ESTIMA NICOLASA GFR IS code = 1092) sq m NOT ACCURATE CREATININE CLEARANCE IN PREDICTING GLOMERULAR FILTRATION RATE . ESTIMATED GFR I S NOT APPLICABLE FOR DIALYSIS PATIEN TS. [employer] Inspector ID - ERIK GPROTHROMBIN [id number] 05:28:34 Test Item Value Reference Range Interpretation Comments PROTIME (BEAKER) 15.8 seconds 11.9-14.2 H (test code = 759) INR (BEAKER) (test 1.29 See_Comment [Automat ed message] code = 370) The system [employer] generated this result transmitted ref erence range: <=5.90. The reference range was not used to int erpret this result as normal/abnormal . RECOMMENDED COUMADIN/WARFARIN INR THERAPY RANGESSTANDARD DOSE: 2.0 - 3.0 Includes: PROPHYLAXIS forvenous thrombosis, systemic embolization; TREATMENT for venous thrombosis and/or pulmonary embolus.HIGH RISK: Target INR is 2.5-3.5 for patients with mechanical heart valves.CBC W/PLT COUNT & AUTO DIFFERENTIAL 2021-07-29 05:10:24 Test Item Value Reference Range Interpretation Comments WHITE BLOOD CELL COUNT (BEAKER) 3.2 K/ L 3.5-10.5 L (test code = 775) RED BLOOD CELL COUNT (BEAKER) 2.86 M/ L 3.93-5.22 L (test code = 761) HEMOGLOBIN (BEAKER) (test code = 8.2 GM/DL 11.2-15.7 L 410) HEMATOCRIT (BEAKER) (test code = 26.0 % 34.1-44.9 L 411) MEAN CORPUSCULAR VOLUME (BEAKER) 90.9 fL 79.4-94.8 (test code = 753) MEAN CORPUSCULAR HEMOGLOBIN 28.7 pg 25.6-32.2 (BEAKER) (test code = 751) MEAN CORPUSCULAR HEMOGLOBIN CONC 31.5 GM/DL 32.2-35.5 L (BEAKER) (test code = 752) RED CELL DISTRIBUTION WIDTH 16.0 % 11.7-14.4 H (BEAKER) (test code = 412) PLATELET COUNT (BEAKER) (test code 61 K/CU MM 150-450 L = 756) MEAN PLATELET VOLUME (BEAKER) 12.4 fL 9.4-12.3 H (test code = 754) NUCLEATED RED BLOOD CELLS (BEAKER) 0 /100 WBC 0-0 (test code = 413) NEUTROPHILS RELATIVE PERCENT 51 % (BEAKER) (test code = 429) LYMPHOCYTES RELATIVE PERCENT 29 % (BEAKER) (test code = 430) MONOCYTES RELATIVE PERCENT 14 % (BEAKER) (test code = 431) EOSINOPHILS RELATIVE PERCENT 5 % (BEAKER) (test code = 432) BASOPHILS RELATIVE PERCENT 1 % (BEAKER) (test code = 437) NEUTROPHILS ABSOLUTE COUNT 1.64 K/ L 1.56-6.13 (BEAKER) (test code = 670) LYMPHOCYTES ABSOLUTE COUNT 0.94 K/ L 1.18-3.74 L (BEAKER) (test code = 414) MONOCYTES ABSOLUTE COUNT (BEAKER) 0.44 K/ L 0.24-0.36 H (test code = 415) EOSINOPHILS ABSOLUTE COUNT 0.16 K/ L 0.04-0.36 (BEAKER) (test code = 416) BASOPHILS ABSOLUTE COUNT (BEAKER) 0.02 K/ L 0.01-0.08 (test code = 417) IMMATURE GRANULOCYTES-RELATIVE 1 % 0-1 PERCENT (BEAKER) (test code = 3931)
[2021-09-27] MEDS ORDERED: PANTOPRAZOLE 40 MG INJ ONE ×2 (10:02→10:03)
[2021-09-27] MEDS ORDERED: ONDANSETRON 4 MG/2 ML VIAL ONE ×2 (10:02→12:36)
[2021-09-27] MEDS ORDERED: NA CHLORIDE 0.9% 250 ML ONE (10:03)
[2021-09-27] MEDS ORDERED: OCTREOTIDE ACETATE 100 MCG/ML ONE (10:08)
[2021-09-27] MEDS ORDERED: OCTREOTIDE 500 MCG in NA CHLORIDE 0.9% 500 ML IV ONE (10:15)
[2021-09-27 10:31] LABS: Absolute Lymphocytes (CBC) 0.7 K/uL (0.7-4.9); Hematocrit 27.5 % (36.0-45.0); MPV 12.2 fL (7.6-11.3); RBC Red Blood Cell Count 3.09 M/uL (3.86-4.86)
[2021-09-27 10:48] LABS: Albumin 2.6 g/dL (3.4-5.0); Bilirubin Direct 0.3 mg/dL (0-0.2); Bilirubin Total 0.7 mg/dL (0.2-1.0); Potassium 3.4 mmol/L (3.5-5.1); Protein, Total 7.1 g/dL (6.4-8.2)
[2021-09-27 11:01] LABS: Protime INR 1.16
--- NOTE | 2021-09-27 11:47 | RAD REPORT ---
EXAM DESCRIPTION: CT - Abdomen Pelvis Wo Contrast - 09/27/2021 11:36 am CLINICAL HISTORY: Abdominal pain. Upper GI bleed COMPARISON: Abdomen Pelvis W Contrast dated 07/28/2021 TECHNIQUE: CT imaging of the abdomen and pelvis was performed without contrast. Solid organ, bowel a nd vascular assessment is limited due to lack of IV and oral contrast. All CT scans are performed using dose optimization technique as appropriate and may include automated exposure control or mA/KV adjustment according to patient size. FINDINGS: Linear opacities are present in both posterior lung bases which may represent atelectasis or infiltrate/aspiration.Moderate hiatal hernia. Liver is shrunken and nodular contour compatible with cirrhosis. Cholecystectomy. Spleen is normal in size. Pancreas, adrenal glands and kidneys are within normal limits. Benign 3 cm right renal cyst. N o hydronephrosis. Mild ascites is present. Moderate stool is present retained in the colon. Mucosal thickening of the c olon is seen particularly the transverse colon and ascending colon. The appendix is normal. Lumbosacral degenerative changes are present. Mild T8-12 wedge compression deformity noted, unchanged . IMPRESSION: Liver cirrhosis pattern is present with mild ascites. Right-sided moderate colonic wall thickening is seen which may be related to portal colopathy or an i nfectious/inflammatory colitis. A limited non-contrast examination was performed as detailed.
--- NOTE | 2021-09-27 12:37 | EDPHYS ---
Physician Documentation [facility] Name: Ana Dennis Age: 81 yrs Sex: Female : 1940 Arrival Date: 09/27/2021 Time: 09:37 Bed 17 Private MD: ED Physician Cady Lewis HPI: 09/27 09:39 This 81 yrs old Female presents to ER via EMS with complaints of pm1 Nausea/Vomiting. 09:39 The patient presents to the emergency department with vomiting, described as bright red pm1 blood. Onset: The symptoms/episode began/occurred this morning. Possible causes: history of GI bleed. The symptoms are aggravated by nothing. The symptoms are alleviated by nothing. Associated signs and symptoms: Pertinent positives: 1-2 weeks of dark/black stool, Pertinent negatives: abdominal pain, fever. Severity of symptoms: in the emergency department the symptoms are worse. The patient has experienced a previous episode, last month. The patient has not recently seen a physician. Historical: - Allergies: 09:48 ACETAMINOPHEN; vg1 09:48 PENICILLINS; vg1 - Home Meds: 09:48 amlodipine oral [Active]; gabapentin 300 mg Oral cap 1 cap twice a day [Active]; vg1 levothyroxine oral [Active]; pantoprazole oral [Active]; Nifedipine Oral [Active]; Mirtazapine Oral [Active]; pioglitazone oral [Active]; - PMHx: 09:48 Diabetes - IDDM; Hypertensive disorder; Hypothyroidism; insomnia; GERD; Gastric reflux; vg1 Ulcer; - PSHx: 09:48 bladder sling; Cholecystectomy; hysterectomy; vg1 - Immunization history:: Client reports having NOT received the Covid vaccine. - Social history:: Smoking status: Patient denies any tobacco usage or history of. ROS: 09:39 Constitutional: Negative for fever, chills, and weight loss, Cardiovascular: Negative pm1 for chest pain, palpitations, and edema, Respiratory: Negative for shortness of breath, cough, wheezing, and pleuritic chest pain. 09:39 Back: Negative for injury and pain, : Negative for injury, bleeding, discharge, and swelling, MS/Extremity: Negative for injury and deformity, Skin: Negative for injury, rash, and discoloration, Neuro: Negative for headache, weakness, numbness, tingling, and seizure. 09:39 Abdomen/GI: Positive for nausea and vomiting, hematemesis, black/tarry stool, Negative for abdominal pain. 09:39 All other systems are negative. Exam: 09:39 Constitutional: This is a well developed, well nourished patient who is awake, alert, pm1 and in no acute distress. Head/Face: Normocephalic, atraumatic. 09:39 Back: No spinal tenderness. No costovertebral tenderness. Full range of motion. Skin: Warm, dry with normal turgor. Normal color with no rashes, no lesions, and no evidence of cellulitis. MS/ Extremity: Pulses equal, no cyanosis. Neurovascular intact. Full, normal range of motion. 09:39 Eyes: Exam is negative for acute changes, Conjunctiva: no acute changes, no injection. 09:39 ENT: Exam is negative for acute changes, Mouth: no acute changes, Lips: normal, moist, Oral mucosa: normal, pink and intact, moist, no laceration or bleeding coming from the mouth. 09:39 Cardiovascular: Exam negative for acute changes, Rate: normal, Rhythm: regular, Pulses: no pulse deficits are appreciated, Heart sounds: normal, normal S1and S2. 09:39 Respiratory: Exam negative for acute changes, respiratory distress, shortness of breath. 09:39 Abdomen/GI: Inspection: abdomen appears normal, Palpation: abdomen is soft and non-tender, in all quadrants. 09:39 Neuro: Exam negative for acute changes, Orientation: is normal, Mentation: is normal, Motor: is normal, moves all fours. 11:29 Abdomen/GI: Rectal exam: Stool: guaiac positive, Tyrell harrell RN. pm1 Vital Signs: 09:30 BP 132 / 67; Pulse 86; Resp 20; Temp 97.7(O); Pulse Ox 98% on R/A; Weight 58.97 kg; vg1 Height 4 ft. 10 in. (147.32 cm); Pain 9/10; 10:00 BP 131 / 74; Pulse 94; Resp 20; Pulse Ox 100% ; vg1 10:30 BP 138 / 72; Pulse 88; Resp 19; Pulse Ox 97% on R/A; vg1 11:00 BP 132 / 82; Pulse 88; Resp 14; Pulse Ox 99% on R/A; vg1 12:30 BP 135 / 69; Pulse 84; Resp 19; Pulse Ox 97% on R/A; vg1 13:00 BP 136 / 74; Pulse 89; Resp 15; Pulse Ox 99% on R/A; vg1 14:00 BP 143 / 75; Pulse 84; Resp 17; Pulse Ox 96% on R/A; vg1 15:00 BP 140 / 75; Pulse 86; Resp 17; Pulse Ox 99% on R/A; vg1 09:30 Body Mass Index 27.17 (58.97 kg, 147.32 cm) vg1 MDM: 09:39 Patient medically screened. pm1 12:35 Data reviewed: vital signs. Data interpreted: Pulse oximetry: on room air is 99 %. pm1 Interpretation: normal. 12:37 Physician consultation: Shaquille De La Cruz MD was called at 12:37, was contacted at 12:37, pm1 regarding consult, patient's condition, after a discussion of the case, a recommendation for transfer for higher level of care is made, Hospital does not have the equipment in the hospital to address esophageal varices. 13:25 Physician consultation: MD Koenig was contacted at 13:25, regarding regarding transfer, pm1 patient's condition, and will see patient Discussed CT findings regarding right-sided moderate colonic wall thickening and clinical decision to not give antibiotics and Dr Koenig is fine with my decision. Patient without abdominal pain, fever, and elevated WBC. 09/27 09:49 Order name: BMP; Complete Time: 11:47 pm09/27 09:49 Order name: CBC with Diff; Complete Time: 10:34 pm09/27 09:49 Order name: LFT's; Complete Time: 11:47 pm09/27 09:49 Order name: PT-INR; Complete Time: 11:47 pm09/27 09:49 Order name: Ptt, Activated; Complete Time: 11:47 pm09/27 09:49 Order name: AMMONIA; Complete Time: 11:47 pm09/27 09:49 Order name: Type And Screen; Complete Time: 11:47 pm09/27 09:49 Order name: Lactate; Complete Time: 11:47 pm09/27 10:33 Order name: COVID-19 SARS RT PCR (Document "Date of Onset" if Symptomatic); Complete bd Time: 12:27 09/27 11:15 Order name: Abdomen ; Complete Time: 11:56 EDMS 09/27 11:25 Order name: Occult Blood--Ancillary; Complete Time: 12:38 bd 09/27 09:49 Order name: EKG; Complete Time: 09:50 pm1 09/27 09:49 Order name: EKG - Nurse/Tech; Complete Time: 11:31 pm1 Administered Medications: 10:20 Drug: Zofran (Ondansetron) 4 mg Route: IVP; Site: right forearm; vg1 11:20 Follow up: Response: No adverse reaction; Marked relief of symptoms vg1 10:22 Drug: ProTONIX (pantoprazole) 40 mg Route: IVP; Site: right forearm; vg1 11:20 Follow up: Response: No adverse reaction vg1 10:24 Drug: SandoSTATIN (octreotide) 50 mcg Route: IV; Rate: calculated rate; Site: right vg1 forearm; 11:00 Follow up: IV Status: Completed infusion vg1 10:29 Drug: ProTONIX (pantoprazole) 8 mg/hr Route: IV; Rate: 25 ml/hr; Site: right forearm; vg1 15:49 Follow up: IV Status: Infusion continued upon transfer vg1 10:45 Drug: SandoSTATIN (octreotide) 25 mcg/h Route: IV; Rate: calculated rate; Site: right vg1 forearm; 15:49 Follow up: IV Status: Infusion continued upon transfer vg1 12:37 Drug: Zofran (Ondansetron) 4 mg Route: IVP; Site: left forearm; vg1 13:15 Follow up: Response: No adverse reaction; No change in condition vg1 Disposition Summary: 09/27/21 12:36 Transfer Ordered Transfer Location: [facility] pm1 Reason: Higher level of care pm1 Condition: Fair pm1 Problem: new pm1 Symptoms: have improved pm1 Accepting Physician: (09/27/21 15:49) vg1 Diagnosis - GI Bleed/ Gastrointestinal hemorrhage, unspecified pm1 Forms: - Medication Reconciliation Form pm1 - SBAR form pm1 Addendum: 09/29/2021 18:36 Co-signature as Attending Physician, Cady cervantes a2 Signatures: Dispatcher [employer] EDDimas Boateng, MUFFLE OPERATOR MUFFLE OPERATOR pm1 Cady Lewis MD MD ma2 Rebekah Thurston, RN RN vg1 Corrections: (The following items were deleted from the chart) 09/27 11:15 09:53 Abdomen Pelvis W Con+CT.RAD.BRZ ordered. EDMS EDMS 15:49 12:36 pm1 vg1
--- NOTE | 2021-09-27 12:37 | ER ---
Nurse's Notes [facility] Name: Ana Dennis Age: 81 yrs Sex: Female : 1940 Arrival Date: 09/27/2021 Time: 09:37 Bed 17 Private MD: Diagnosis: GI Bleed/ Gastrointestinal hemorrhage, unspecified Presentation: 09/27 09:30 Chief complaint: EMS states: Pt has been N/V since SundaySeptember 24 and began vomiting vg1 bright red blood today; pt states diarrhea x 2 days; c/o ABD davis; about two months ago pt was seen for 'ruptured ulcer'. Pt is AOx 3. 09:30 Method Of Arrival: EMS: [facility] vg1 09:30 Coronavirus screen: Vaccine status: Patient reports being unvaccinated. Client denies vg1 travel out of the [place] in the last 14 days. Ebola Screen: Patient negative for fever greater than or equal to 101.5 degrees Fahrenheit, and additional compatible Ebola Virus Disease symptoms. Initial Sepsis Screen: Does the patient meet any 2 criteria? No. Patient's initial sepsis screen is negative. Does the patient have a suspected source of infection? No. Patient's initial sepsis screen is negative. Risk Assessment: Do you want to hurt yourself or someone else? Patient reports no desire to harm self or others. Onset of symptoms was September 27, 2021. 09:30 Acuity: ARNOLDO 3 vg1 09:30 Care prior to arrival: IV initiated. 22 GA, in the right forearm. vg1 Triage Assessment: 09:30 General: Appears in no apparent distress. uncomfortable, Behavior is calm, cooperative. vg1 Pain: Complains of pain in abdomen Pain currently is 9 out of 10 on a pain scale. Pain began 2-3 days ago. EENT: No signs and/or symptoms were reported regarding the EENT system. Neuro: Level of Consciousness is awake, alert, obeys commands, Oriented to person, place, time, situation. Cardiovascular: Patient's skin is warm and dry. Respiratory: Airway is patent Respiratory effort is even, unlabored. GI: Abdomen is distended, Reports nausea, vomiting, since SundaySeptember 24 and vomiting bright red blood Today. : No signs and/or symptoms were reported regarding the genitourinary system. Derm: Skin is intact, Skin is pink, warm \T\ dry. Musculoskeletal: Circulation, motion, and sensation intact. Historical: - Allergies: 09:48 ACETAMINOPHEN; vg1 09:48 PENICILLINS; vg1 - Home Meds: 09:48 amlodipine oral [Active]; gabapentin 300 mg Oral cap 1 cap twice a day [Active]; vg1 levothyroxine oral [Active]; pantoprazole oral [Active]; Nifedipine Oral [Active]; Mirtazapine Oral [Active]; pioglitazone oral [Active]; - PMHx: 09:48 Diabetes - IDDM; Hypertensive disorder; Hypothyroidism; insomnia; GERD; Gastric reflux; vg1 Ulcer; - PSHx: 09:48 bladder sling; Cholecystectomy; hysterectomy; vg1 - Immunization history:: Client reports having NOT received the Covid vaccine. - Social history:: Smoking status: Patient denies any tobacco usage or history of. Screenin:52 Abuse screen: Denies threats or abuse. Nutritional screening: No deficits noted. vg1 Tuberculosis screening: No symptoms or risk factors identified. Fall Risk No fall in past 12 months (0 pts). No secondary diagnosis (0 pts). IV access (20 points). Ambulatory Aid- None/Bed Rest/Nurse Assist (0 pts). Gait- Normal/Bed Rest/Wheelchair (0 pts) Mental Status- Oriented to own ability (0 pts). Total Greene Fall Scale indicates No Risk (0-24 pts). Assessment: 09:52 Reassessment: SEE TRIAGE. vg1 11:00 Reassessment: Patient appears in no apparent distress at this time. No changes from vg1 previously documented assessment. Patient and/or family updated on plan of care and expected duration. Pain level reassessed. Patient is alert, oriented x 3, equal unlabored respirations, skin warm/dry/pink. 12:00 Reassessment: Patient appears in no apparent distress at this time. No changes from vg1 previously documented assessment. Patient and/or family updated on plan of care and expected duration. Pain level reassessed. Patient is alert, oriented x 3, equal unlabored respirations, skin warm/dry/pink. 13:10 Reassessment: Patient appears in no apparent distress at this time. No changes from vg1 previously documented assessment. Patient and/or family updated on plan of care and expected duration. Pain level reassessed. Patient is alert, oriented x 3, equal unlabored respirations, skin warm/dry/pink. 14:06 Reassessment: Patient appears in no apparent distress at this time. Patient and/or vg1 family updated on plan of care and expected duration. Pain level reassessed. Patient is alert, oriented x 3, equal unlabored respirations, skin warm/dry/pink. ATTEMPTED TO CALL REPORT. 14:33 Reassessment: Report given to Rebecca ROJAS. 1 Vital Signs: 09:30 BP 132 / 67; Pulse 86; Resp 20; Temp 97.7(O); Pulse Ox 98% on R/A; Weight 58.97 kg; vg1 Height 4 ft. 10 in. (147.32 cm); Pain 9/10; 10:00 BP 131 / 74; Pulse 94; Resp 20; Pulse Ox 100% ; vg1 10:30 BP 138 / 72; Pulse 88; Resp 19; Pulse Ox 97% on R/A; vg1 11:00 BP 132 / 82; Pulse 88; Resp 14; Pulse Ox 99% on R/A; vg1 12:30 BP 135 / 69; Pulse 84; Resp 19; Pulse Ox 97% on R/A; vg1 13:00 BP 136 / 74; Pulse 89; Resp 15; Pulse Ox 99% on R/A; vg1 14:00 BP 143 / 75; Pulse 84; Resp 17; Pulse Ox 96% on R/A; vg1 15:00 BP 140 / 75; Pulse 86; Resp 17; Pulse Ox 99% on R/A; vg1 09:30 Body Mass Index 27.17 (58.97 kg, 147.32 cm) 1 ED Course: 09:30 Arm band placed on. vg1 09:37 Patient arrived in ED. ph 09:38 Dimas Gray, PANKAJ is PHCP. pm1 09:38 Cady Lewis MD is Attending Physician. pm1 09:43 Rebekah Thurston, RN is Primary Nurse. vg1 09:48 Triage completed. vg1 09:52 Patient has correct armband on for positive identification. Bed in low position. Call [facility] light in reach. Side rails up X2. Adult w/ patient. 10:15 Initial lab(s) drawn, by me, sent to lab. Inserted saline lock: 22 gauge in left vg1 forearm, using aseptic technique. Blood collected. 10:48 COVID swab sent to lab. vg1 11:38 Abdomen In Process Unspecified. EDMS 13:09 initiated transfer to [facility]. bd 13:44 pt accepted in transfer to [facility] by dr [place], admin approval given by Shannon Vila. 14:33 No provider procedures requiring assistance completed. Patient transferred, IV remains vg1 in place. Administered Medications: 10:20 Drug: Zofran (Ondansetron) 4 mg Route: IVP; Site: right forearm; vg1 11:20 Follow up: Response: No adverse reaction; Marked relief of symptoms vg1 10:22 Drug: ProTONIX (pantoprazole) 40 mg Route: IVP; Site: right forearm; vg1 11:20 Follow up: Response: No adverse reaction vg1 10:24 Drug: SandoSTATIN (octreotide) 50 mcg Route: IV; Rate: calculated rate; Site: right vg1 forearm; 11:00 Follow up: IV Status: Completed infusion vg1 10:29 Drug: ProTONIX (pantoprazole) 8 mg/hr Route: IV; Rate: 25 ml/hr; Site: right forearm; vg1 15:49 Follow up: IV Status: Infusion continued upon transfer vg1 10:45 Drug: SandoSTATIN (octreotide) 25 mcg/h Route: IV; Rate: calculated rate; Site: right vg1 forearm; 15:49 Follow up: IV Status: Infusion continued upon transfer vg1 12:37 Drug: Zofran (Ondansetron) 4 mg Route: IVP; Site: left forearm; vg1 13:15 Follow up: Response: No adverse reaction; No change in condition vg1 Outcome: 12:36 ER care complete, transfer ordered by . pm1 14:33 Transferred to [facility]. vg1 14:33 Condition: stable 14:33 Instructed on the need for transfer. 15:49 Patient left the ED. vg1 Signatures: Dispatcher [employer] EDMS Esperanza Espino Patricia, RN RN Dimas Pimentel, [employer]ER [employer]ORER pm1 Rebekah Thurston RN RN vg1 Corrections: (The following items were deleted from the chart) 14:13 14:06 Reassessment: Attempted to call report vg1 vg1
[2021-09-27 18:57] VITALS: BP 140/75; O2SAT 99
--- NOTE | 2021-09-28 08:09 | EKG ---
Test Date: 2021-09-27 Test Time: 11:14:47 Production Control Planner: STEPHEN MEASUREMENT RESULTS: Intervals: Rate: 86 IA: 152 QRSD: 88 QT: 382 QTc: 457 [place]: P: 43 IA: 152 QRS: 82 T: 28 INTERPRETIVE STATEMENTS: Sinus rhythm with marked sinus arrhythmia Anterior infarct, age undetermined Abnormal ECG Compared to ECG 07/28/2021 20:10:17 Myocardial infarct finding now present Electronically Signed On 09-28-21 08:07:06 CDT by Juan Morfin
== END 2021-09-27 15:49 | disposition short-term general hospital (02) ==
LOC: ER 09:36
DX: K92.0 Hematemesis (principal); E11.9 Type 2 diabetes mellitus without complications; I10 Essential (primary) hypertension; E03.9 Hypothyroidism, unspecified; Z20.822 Contact with and (suspected) exposure to COVID-19; Z88.0 Allergy status to penicillin; Z88.6 Allergy status to analgesic agent
CPT/HCPCS: 93005; 85025; 80048; 36415; 82140; 86900; 86850; 85610; 86901; 80076; 83605; 85730; 82272; 74176; U0003; J2354 ×2; C9113 ×2; J7050; J7040; J2405 ×2; 99285

== ENCOUNTER 2021-10-28 08:09 | Day surgery (SDC) | payer OTHER ==
[2021-10-28 09:06] VITALS: BP 135/56; TEMP 97.5; O2SAT 96; BMI 26.2
[2021-10-28 10:03] LABS: MPV 10.7 fL (7.6-11.3)
[2021-10-28 10:08] LABS: Protime INR 1.13
== END 2021-10-28 10:55 | disposition home or self-care (01) ==
LOC: DS 08:09
PROVIDERS: ATTEND Family Medicine
DX: K74.60 Unspecified cirrhosis of liver (principal); Z53.09 Procedure and treatment not carried out because of other contraindication
CPT/HCPCS: 36415; 82947; 85049; 85610; 85730

== ENCOUNTER 2022-01-02 20:19 | Inpatient (IN) | payer OTHER ==
--- OUTSIDE RECORDS SUMMARY | 2022-01-02 20:25 | XMS REPORT | Continuity of Care Document ---
:1940 Author Organization Formerly [facility] t Address [address] [place] [address] Care Team Providers Name Role Phone SHARPLESS Primary Care Physician Unavailable ZAYRA ALMEIDA Attending Clinician Unavailable Alyssa GREENE Attending Clinician Unavailable JULISSA Attending Clinician Unavailable Roshni LYNN Attending Clinician Unavailable RL TURNER Attending Clinician Unavailable Lili BROOKS Attending Clinician Unavailable WENDY Attending Clinician Unavailable LISETTE Attending Clinician Unavailable JULISSA Admitting Clinician Unavailable RL TURNER Admitting Clinician Unavailable RASHIDA PERRY Admitting Clinician Unavailable Payers Payer Name Policy Type Policy Number Effective Date Expiration Date Renny MEJÍA MEDICARE [id number] 2021 00:00:00 MEDICAID OF [place] [id number] 2013 00:00:00 CARE IMPROVEMENT [id number] 2014 PLUS 00:00:00 Problems Condition Condition Condition Status Onset Resolution Last Treating Co mments Source Name Details Category Date Date Treatment Clinician Date 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 Vitamin Vitamin Problem Active Common B12 B12 Spirit deficiency deficiency - [facility] Rheumatoid Rheumatoid Problem Active C ommon arthritis arthritis Spir - [facility] Gout Gout Problem Active Common [facility] Thrombocyt Thrombocyt Problem Active C ommon openia openia [facility] Fatty Fatty Problem Active Common liver liver [facility] Cataract Cataract Problem Active Commo n [facility] Degenerati Degenerati Problem Active C ommon on of on of Spirit lumbosacra lumbosacra - [facility] l l St interverte interverte [facility] bral disc bral disc [facility] H/O TIA H/O TIA Problem Active Common (transient (transient Sp antonio ischemic ischemic - [facility] attack) attack) St and stroke and stroke [facility] HTN HTN Problem Active Common (hypertens (hypertens Sp antonio ion), ion), - [facility] benign benign [facility] Diabetic Diabetic Problem Active Commo n polyneurop polyneurop Sp antonio athy athy - [facility] associated associated St with other with other [facility] specified specified [facility] diabetes diabetes Center mellitus mellitus Seasonal Seasonal Problem Active Commo n allergic allergic Spirit rhinitis rhinitis - 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 loss loss Medical (chronic) (chronic) Cent er Osteoarthr Osteoarthr Problem Active C ommon itis of itis of Spirit multiple multiple - [facility] joints joints [facility] 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 Com mon chronic chronic Spirit illness illness - [facility] Disorder Disorder Problem Active Commo n of kidney of kidney Spir it and and - [facility] ureter, ureter, St unspecifie unspecifie [facility] d d [facility] Degenerati Degenerati Problem Active C ommon ve joint ve joint Spirit disease disease - 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 00:00: Medical 00 Center PENICILL Allergy Active Med Rash [facility] INS 01-01 00:00: 00 ACETAMIN Allergy Active Med Itching [facility] OPHEN 01-01 00:00: 00 CIPROFLO Allergy Active Low Rash [facility] XACIN 01-01 (BULK) 00:00: 00 TRAMADOL Allergy Active Low Rash SLE 01-01 00:00: 00 penicill Adverse Active Info Not Commo n in Reaction Available [facility] Ultram Adverse Active Info Not Common Reaction Available [facility] Motrin Adverse Active Info Not Common Reaction Available [facility] Ibuprofe Adverse Active Info Not Commo n n Reaction Available [facility] Ciproflo Adverse Active Info Not Commo n xacin Reaction Available [facility] Lisinopr Adverse Active Info Not Commo n il Reaction Available [facility] Medications Ordered Filled Start Stop Current Ordering Indication Dosage Frequency Signature Comments Components Source Medication Medication Date Date Medication? Clinician (SIG) Name Name Joyce Cook Yes Ramakrishna 1 tablet Common Yepez [facility] Levothyroxi Levothyroxi Yes Ramakrishna FRAGA VON Common ne Sodium ne Sodium Yepez TABLETA Sp antonio POR VIA - CHI ORAL CADA [facility] A EMPTY Medical STOMACH Cyclone Bystolic Bystolic Yes Ramakrishna 1 tablet Common Yepez [facility] Lasix Lasix Yes Ramakrishna 1 tablet Common Eypez Spirit [facility] Amlodipine Amlodipine Yes Ramakrishna FRAGA VON Common Besylate Besylate Yepez TABLETA Spir it VON VEZ AL - CHI ALAN POR [facility] Amlodipine Amlodipine Yes Ramakrishna 1 tablet Common Besylate Besylate Yepez [facility] Levothyroxi Levothyroxi Yes Ramakrishna 1 tablet Common ne Sodium ne Sodium Yepez on an Spir it empty - [facility]I stomach in [facility] Venlafaxine Venlafaxine Yes Ramakrishna 1-2 tablet Common HCl HCl Yepez with food Spirit PRN Nerve - [facility] Pain [facility] TobraDex TobraDex Yes Ramakrishna 1 Comm on Yepez applicatio Spirit n [facility] Metformin Metformin Yes Ramakrishna 1 tablet Common HCl HCl Yepez with meals [facility] Vitamin Vitamin Yes Ramakrihsna not Common B-12 B-12 Yepez defined [facility] Ferrous Ferrous Yes Ramakrishna 1 tablet Co mmon Sulfate Sulfate Yepez [facility] Lisinopril Lisinopril Yes Ramakrishna 1 tablet Common Yepez [facility] Vital Signs Vital Name Observation Time Observation Value Comments Source HEIGHT 2021-10-23 11:35:00 154.9 cm WEIGHT 2021-10-23 11:35:00 58.514 kg HEIGHT 2021-10-08 15:51:00 160 cm WEIGHT 2021-10-08 15:51:00 69.854 kg HEIGHT 2021-10-08 15:51:00 160 cm WEIGHT 2021-10-08 15:51:00 69.854 kg WEIGHT 2021-07-31 05:00:00 69.9 kg WEIGHT [...] Date/Time Type Type Clinicians Facility Department ID 2021-11-02 2021-11-02 Outpatient ELLIE ALMEIDA [id number] [facility] 12:28:00 23:59:00 MOODY 2021-10-23 2021-10-23 Emergency ER RAMONA [facility] Emergency [id number] [facility] 11:54:00 16:24:00 LISSETT 2021-10-08 2021-10-11 Inpatient ER JULISSA [facility] Emergency [id number] [facility] 16:07:00 18:44:00 MACIEL 2021-10-04 2021-10-04 Outpatient [facility] [id number] [facility] 00:00:00 23:59:00 Narcisain bri 2021-09-27 2021-10-04 [id number] [facility] 17:02:00 14:40:00 MRINALINI Med 2021-07-29 2021-07-31 Inpatient ER BOWEN NGUYEN [facility] Gastro [id number] [facility] 02:24:00 15:13:00 2019-01-27 2019-01-27 [facility] [id number] Common 16:32:00 16:32:00 [facility] 2019-01-23 2019-01-23 [facility] [id number] Common 16:19:00 16:19:00 t Bone Bone and Spiri t and Joint [facility] - [facility] 2019-01-10 2019-01-10 [facility] [id number] Common 09:30:00 09:30:00 t Bone Bone and Spiri t and Joint [facility] - [facility] 2019-01-02 2019-01-02 [facility] [id number] Common 08:45:00 08:45:[place] [address] [facility] 2018-12-26 2018-12-26 [facility] [id number] Common 08:15:00 08:15:00 [place] [address] [facility] 2018-10-03 2018-10-03 [facility] [id number] Common 08:30:00 08:30:00 [place] [address] [facility] 2018-09-26 2018-09-26 [facility] [id number] Common 08:30:00 08:30:00 [place] [address] [facility] 2018-09-06 2018-09-06 [facility] [id number] Common 10:25:00 10:25:00 [place] [address] [facility] 2018-09-02 2018-09-02 [facility] [id number] Common 10:15:00 10:15:00 [place] [address] [facility] 2018-07-05 2018-07-05 [facility] [id number] Common 08:30:00 08:30:00 [place] [address] [facility] 2018-06-28 2018-06-28 [facility] [id number] Common 08:15:00 08:15:00 [place] [address] [facility] 2018-05-28 2018-05-28 [facility] [id number] Common 14:00:00 14:00:00 t Bone Bone and Spiri t and Joint [facility] - [facility] 2018-02-04 2018-02-04 [facility] [id number] Common 08:30:00 08:30:00 [place] [address] [facility] 2018-01-28 2018-01-28 [facility] [id number] Common 08:15:00 08:15:00 [address] [place] [address] [facility] 2017-12-20 2017-12-20 [facility] [id number] Common 14:15:00 14:15:00 [place] [address] [facility] 2017-12-11 2017-12-11 [facility] [id number] Common 12:00:00 12:00:00 [place] [address] [facility] 2017-12-04 2017-12-04 [facility] [id number] Common 08:15:00 08:15:00 [address] [place] [address] [facility] 2017-10-29 2017-10-29 [facility] [id number] Common 10:15:00 10:15:00 [place] [address] [facility] 2017-10-22 2017-10-22 [facility] [id number] Common 07:53:00 07:53:00 [place] [address] [facility] 2017-10-19 2017-10-19 [facility] [id number] Common 09:50:00 09:50:00 [place] [address] [facility] 2017-10-19 2017-10-19 [facility] [id number] Common 08:15:00 08:15:00 [address] [place] [address] [facility] 2017-09-26 2017-09-26 [facility] [id number] Common 16:20:00 16:20:00 [address] [place] [address] [facility] 2017-09-24 2017-09-24 [facility] [id number] Common 08:49:00 08:49:00 [place] [address] [facility] 2017-09-24 2017-09-24 [facility] [id number] Common 08:45:00 08:45:00 [place] [address] [place] [address] [facility] Results Test Description Test Time Test Comments Results Result Comments Source BODY FLUID CULTURE + GRAM STAIN 2021-10-13 08:57:28 Test Item Value Reference Range Interpretation Comme nts CULTURE (BEAKER) (test code = 1095) No growth U/S, [id number] 09:55:00Labs to be ordered:->Body Fluid Culture (w/Gram Stain, C\\T\\S)Labs to be ordered:->Glucose+LDH+ProteinLabs to be ordered:->Cell CountReason for exam:->Ascites [facility] 1940 Sex: FFINAL REPORT Ultrasound guided paracentesis Clinical History: Ascites. Sedation: None. Dairy Farm Supervisor: Nelida Harper [facility] Supervising Physician: Ibrahima Jackson MD Test Rack Operator: None. Estimated Blood Loss: < 1 mL. Specimen: 1500 mL of clear yellow fluid, samples sent to laboratory. Technique: Informed consent was obtained. The risks of pain, blee ding, infection, bowel perforation, injury to adjacent structures, and adverse medication reactions were discussed with the patient. After informed consent was obtained, the patient's abdomen was scanned. The right lower quadrant of the abdomen was selected for paracentesis. After the largest fluid pocket area was marked, and the anterior abdominal wall was evaluated with color Doppler to excludepresence of blood vessels traversing the area, the skin was prepped and draped in the usual sterile manner. After local anesthesia was achieved with lidocaine, a 5 Andorran one-step catheter was advanced into the peritoneal cavity under ultrasound guidance. After completion of drainage, the catheter was removed. There was no evidence of complication. Impression:Successful ultrasound guided paracentesis. Signed: Ibrahima Jackson MDReport Verified Date/Time: 10/12/2021 09:55:38 Reading Location: [address] Ultrasound Reading Room CYTOLOGY 2021-10-11 11:45:28Medical Cytology Report Case: [id number] Authorizing Provider: Maciel Raines MD Collected: 10/10/2021 12:15 PM Ordering Location: [address] Received: 10/10/2021 02:08 PM Service Pathologist: Barbara Smiley MD Specimen: Peritoneal Fluid PERITONEAL FLUID (CYTOSPINS AND CELL BLOCK): - NO MALIGNANT CELLS IDENTIFIED Reactive mesothelial cells and chronic inflammation seen Signing Pathologist Direct Phone Line: [phone] signed by Barbara Smiley MD on 10/11/2021 at 11:45 [id number], [id number], history of moderate-severe pulmonary hypertension, HFpEF, achalasia, UGIB, DM2, ascites, hypothyroidism admitted to [facility] on 10/08/2021. S he has multiple recent admissions with ascites and GIB and concern for cirrhosis. Patient's hospitalstay is notable for consideration of biopsy to confirm diagnosis of cirrhosis and the cause.PERITONEAL FLUIDA. Peritoneal Fluid.Received 1100 ml yellow fluid; prepared 4 cytospins and cell block(A2)(col lodion bag) - the cell block was fixed in formalin at 4:45 pm on 10/10/2021erformed. [facility], Department of Pathology, [address] [place] [id number], [facility] of [facility], [address] [place] [address], [facility], Department of Pathology, [address] [place] [address], [facility]-GLUCOSE [id number] 07:14:09 Test Item Value Reference Range Interpretation Comments POC-GLUCOSE METER 82 mg/dL 70-110 : TESTED A T [facility] 6720 (BEAKER) (test code = RENE Santana [facility], 1538) 26595: Needle Grader/Techni donn ID = [id number] for ROSALIA LIMA JEAN CALCIUM, [id number] 05:11:56 Test Item Value Reference Range Interpretation Comments CALCIUM IONIZED (BEAKER) (test 1.15 mmol/L 1.12-1.27 code = 698) PH, BLOOD (BEAKER) (test code = 7.40 1810) [id number] 05:03:34 Test Item Value Reference Range Interpretation Comments MAGNESIUM (BEAKER) (test code = 1.9 mg/dL 1.6-2.6 627) Needle Grader ID - LYNNE [id number] 05:03:34 Test Item Value Reference Range Interpretation Comments PHOSPHORUS (BEAKER) (test code = 2.7 mg/dL 2.3-4.7 604) Needle Grader ID Ronnie BATISTA WCOMPREHENSIVE METABOLIC [id number] 05:03:33 Test Item Value Reference Range Interpretation Comments TOTAL PROTEIN 5.3 gm/dL 6.0-8.3 L (BEAKER) (test code = 770) ALBUMIN (BEAKER) 2.5 g/dL 3.5-5.0 L (test code = 1145) ALKALINE PHOSPHATASE 101 U/L 40-150 (BEAKER) (test code = 346) BILIRUBIN TOTAL 0.5 mg/dL 0.2-1.2 (BEAKER) (test code = 377) SODIUM (BEAKER) (test 138 meq/L 136-145 code = 381) POTASSIUM (BEAKER) 4.3 meq/L 3.5-5.1 (test code = 379) CHLORIDE (BEAKER) 108 meq/L 98-107 H (test code = 382) CO2 (BEAKER) (test 22 meq/L 22-29 code = 355) BLOOD UREA NITROGEN 23 mg/dL 7-21 H (BEAKER) (test code = 354) CREATININE (BEAKER) 1.24 mg/dL 0.57-1.25 (test code = 358) GLUCOSE RANDOM 79 mg/dL 70-105 (BEAKER) (test code = 652) CALCIUM (BEAKER) 8.4 mg/dL 8.4-10.2 (test code = 697) AST (SGOT) (BEAKER) 19 U/L 5-34 (test code = 353) ALT (SGPT) (BEAKER) 8 U/L 6-55 (test code = 347) EGFR (BEAKER) (test 42 mL/min/1.73 ESTIMA ILEANA GFR IS code = 1092) sq m NOT ACCURATE CREATININE CLEARANCE IN PREDICTING GLOMERULAR FILTRATION RATE . ESTIMATED GFR I S NOT APPLICABLE FOR DIALYSIS PATIEN TS. Needle Grader ID Ronnie BATISTA WCBC W/PLT COUNT & AUTO [id number] 04:52:18 Test Item Value Reference Range Interpretation Comments WHITE BLOOD CELL COUNT 2.2 K/ L 3.5-10.5 L (BEAKER) (test code = 775) RED BLOOD CELL COUNT 2.45 M/ L 3.93-5.22 L (BEAKER) (test code = 761) HEMOGLOBIN (BEAKER) 7.6 GM/DL 11.2-15.7 L (test code = 410) HEMATOCRIT (BEAKER) 23.0 % 34.1-44.9 L (test code = 411) MEAN CORPUSCULAR VOLUME 93.9 fL 79.4-94.8 (BEAKER) (test code = 753) MEAN CORPUSCULAR 31.0 pg 25.6-32.2 HEMOGLOBIN (BEAKER) (test code = 751) MEAN CORPUSCULAR 33.0 GM/DL 32.2-35.5 HEMOGLOBIN CONC (BEAKER) (test code = 752) RED CELL DISTRIBUTION 17.0 % 11.7-14.4 H WIDTH (BEAKER) (test code = 412) PLATELET COUNT (BEAKER) 34 K/CU MM 150-450 L (test code = 756) MEAN PLATELET VOLUME Unable to report due (BEAKER) (test code = to abn ormal Platelet 754) population distribution. NUCLEATED RED BLOOD 0 /100 WBC 0-0 CELLS (BEAKER) (test code = 413) NEUTROPHILS RELATIVE 47 % PERCENT (BEAKER) (test code = 429) LYMPHOCYTES RELATIVE 32 % PERCENT (BEAKER) (test code = 430) MONOCYTES RELATIVE 14 % PERCENT (BEAKER) (test code = 431) EOSINOPHILS RELATIVE 6 % PERCENT (BEAKER) (test code = 432) BASOPHILS RELATIVE 1 % PERCENT (BEAKER) (test code = 437) NEUTROPHILS ABSOLUTE 1.02 K/ L 1.56-6.13 L COUNT (BEAKER) (test code = 670) LYMPHOCYTES ABSOLUTE 0.69 K/ L 1.18-3.74 L COUNT (BEAKER) (test code = 414) MONOCYTES ABSOLUTE 0.31 K/ L 0.24-0.36 COUNT (BEAKER) (test code = 415) EOSINOPHILS ABSOLUTE 0.14 K/ L 0.04-0.36 COUNT (BEAKER) (test code = 416) BASOPHILS ABSOLUTE 0.01 K/ L 0.01-0.08 COUNT (BEAKER) (test code = 417) IMMATURE 1 % 0-1 GRANULOCYTES-RELATIVE PERCENT (BEAKER) (test code = 2801) POCT-GLUCOSE [id number] 23:46:44 Test Item Value Reference Range Interpretation Comments POC-GLUCOSE METER 80 mg/dL 70-110 : TESTED A T [facility] 6720 (BEAKER) (test code = RENE PHILLIP [place], 1538) [id number]: Needle Grader/Techni donn ID = [id number] for JEAN VARGHESE PROTEIN, BODY [id number] 15:46:24 Test Item Value Reference Range Interpretation Comments PROTEIN FLUID (BEAKER) (test code = 1.4 g/dL 579) Absence of reference range indicates that normals have not been defined.Assay performance has not been validated for this type of specimen.Needle Grader ID - [id number], BODY [id number] 15:43:37 Test Item Value Reference Range Interpretation Comments ALBUMIN FLUID (BEAKER) (test code = 0.8 gm/dL 501) Reference Range: No Normals Assay performance has not been validated for this type of specimen.Needle Grader ID - [id number] FLUID CELL COUNT WITH DIFFERENTIAL 2021-10-10 14:11:52 Test Item Value Reference Range Interpretation Comments APPEARANCE FLUID Slightly Hazy Clear A (BEAKER) (test code = 510) COLOR FLUID Straw Colorless, Straw (BEAKER) (test code = 511) RBC FLUID (BEAKER) 93 /cu mm See_Comment H [Automat ed (test code = 513) message] T he system which generated this result transmit ileana reference range : <=1. The refere nce range was not u sed to interpret th is result as normal/abnormal . ADJUSTED WBC FLUID 152 /cu mm See_Comment H [Automat ed (BEAKER) (test code message] The = 1691) system which generated this result transmit ileana reference range : <=5. The refere nce range was not u sed to interpret th is result as normal/abnormal . LINING CELLS 0 /cu mm See_Comment [Automated (BEAKER) (test code message] The = 1590) system which generated this result transmit ileana reference range : <=1. The refere nce range was not u sed to interpret th is result as normal/abnormal . NEUTROPHILS FLUID 5 % (BEAKER) (test code = 1786) LYMPHS FLUID 50 % (BEAKER) (test code = 488) MONO/MACROPHAGE 44 % FLUID (BEAKER) (test code = 489) EOSINOPHILS FLUID 1 % (BEAKER) (test code = 491) BASO FLUID (BEAKER) 0 % (test code = 492) CONTAINER BODY Sterile Container FLUID (BEAKER) (test code = 2873) LACTATE DEHYDROGENASE (LDH)2021-10-10 08:56:48 Test Item Value Reference Range Interpretation Comments LACTATE DEHYDROGENASE 324 U/L 125-220 H Specim en slightly (BEAKER) (test code = hemoly zed 635) Needle Grader ID - [id number], RANDOM [id number] 05:27:11 Test Item Value Reference Range Interpretation Comments SODIUM URINE (BEAKER) (test code = 58 meq/L 243) Reference Range: No NormalsOperator ID - DBCREATININE, RANDOM [id number] 05:27:10 Test Item Value Reference Range Interpretation Comments CREATININE URINE (BEAKER) (test 35.3 mg/dL code = 375) Reference Range: No NormalsOperator ID - [id number], RANDOM [id number] 05:27:10 Test Item Value Reference Range Interpretation Comments PROTEIN, URINE (BEAKER) (test code = 30 mg/dL 0-14 H 1569) Needle Grader ID - DBU/S, RENAL, [id number] 04:12:00Reason for exam:- >akiShould this be performed at the bedside?->Yes [facility] 1940 Sex: FFINAL REPORT U/S, RENAL, COMPLETE Clinical History: juan Discussion: Sonographic evaluation of the kidneys is performed. Right kidney: 10.5 x 4.3 x 5.4 cm, with cortical thickness of 1.1 cm. Increased cortical echogenicity. Upper pole 2.9 x 2.8 x 2.8 cm cyst. No shadowing calculus. No hydronephrosis. Left kidney: 9.9 x 5.1 x 3.6 cm, with cortical thickness of 0.8 cm. Increased cortical echogenicity. No mass. No shadowing calculus. No hydronephrosis. Limited dopplerevaluation of bilateral main renal arteries and veins demonstrate patency. Bladder: Unremarkable. Additional findings: Ascites present. Nodular liver contour. Impression:Increase renal cortical echotexture is nonspecific but associated with medical renal disease. Right kidney 2.9 cm simple cyst. Signed: Julio Boone MDReport Verified Date/Time: 10/10/2021 04:12:36 ALYSIS W/ [id number] 04:07:32 Test Item Value Reference Range Interpretation Comments COLOR (BEAKER) (test code = 470) Light Yellow CLARITY (BEAKER) (test code = Clear 469) SPECIFIC GRAVITY UA (BEAKER) 1.010 1.001-1.035 (test code = 468) PH UA (BEAKER) (test code = 467) 7.0 5.0-8.0 PROTEIN UA (BEAKER) (test code = 30 mg/dL Negative A 464) GLUCOSE UA (BEAKER) (test code = Negative Negative 365) KETONES UA (BEAKER) (test code = Negative Negative 371) BILIRUBIN UA (BEAKER) (test code Negative Negative = 462) BLOOD UA (BEAKER) (test code = Negative Negative 461) NITRITE UA (BEAKER) (test code = Negative Negative 465) LEUKOCYTE ESTERASE UA (BEAKER) Small Negative A (test code = 466) UROBILINOGEN UA (BEAKER) (test 0.2 mg/dL 0.2-1.0 code = 463) RBC UA (BEAKER) (test code = 1 /HPF 519) WBC UA (BEAKER) (test code = 4 /HPF 520) BACTERIA (BEAKER) (test code = None Seen 517) SQUAMOUS EPITHELIAL (BEAKER) 9 /HPF (test code = 516) CRYSTALS, URINE (BEAKER) (test None Seen code = 1521) SOURCE(BEAKER) (test code = 9245) Needle Grader ID - [auto]Needle Grader ID - [id number] 03:26:10 Test Item Value Reference Range Interpretation Comments PHOSPHORUS (BEAKER) 2.8 mg/dL 2.3-4.7 Specimen slightly (test code = 604) hemolyzed Needle Grader ID - DBCOMPREHENSIVE METABOLIC [id number] 03:26:10 Test Item Value Reference Range Interpretation Comments TOTAL PROTEIN 6.4 gm/dL 6.0-8.3 Specimen sligh tly (BEAKER) (test code = hemoly zed 770) ALBUMIN (BEAKER) 3.1 g/dL 3.5-5.0 L Specimen sl ightly (test code = 1145) hemolyzed ALKALINE PHOSPHATASE 128 U/L 40-150 (BEAKER) (test code = 346) BILIRUBIN TOTAL 0.5 mg/dL 0.2-1.2 Specimen sli ghtly (BEAKER) (test code = hemoly zed 377) SODIUM (BEAKER) (test 136 meq/L 136-145 code = 381) POTASSIUM (BEAKER) 4.6 meq/L 3.5-5.1 Specimen slightly (test code = 379) hemolyzed CHLORIDE (BEAKER) 106 meq/L 98-107 (test code = 382) CO2 (BEAKER) (test 19 meq/L 22-29 L code = 355) BLOOD UREA NITROGEN 26 mg/dL 7-21 H (BEAKER) (test code = 354) CREATININE (BEAKER) 1.53 mg/dL 0.57-1.25 H Specimen slightly (test code = 358) hemolyzed GLUCOSE RANDOM 79 mg/dL 70-105 (BEAKER) (test code = 652) CALCIUM (BEAKER) 8.8 mg/dL 8.4-10.2 (test code = 697) AST (SGOT) (BEAKER) 24 U/L 5-34 Specimen slightly (test code = 353) hemolyzed ALT (SGPT) (BEAKER) 8 U/L 6-55 Specimen slightly (test code = 347) hemolyzed EGFR (BEAKER) (test 33 mL/min/1.73 ESTIMA ILEANA GFR IS code = 1092) sq m NOT ACCURATE CREATININE CLEARANCE IN PREDICTING GLOMERULAR FILTRATION RATE . ESTIMATED GFR I S NOT APPLICABLE FOR DIALYSIS PATIEN TS. Needle Grader ID - DBCREATINE KINASE (CK)2021-10-10 03:26:10 Test Item Value Reference Range Interpretation Comments CREATINE KINASE TOTAL (BEAKER) (test 23 U/L 29-200 L code = 380) Needle Grader ID - [id number] 03:26:09 Test Item Value Reference Range Interpretation Comments MAGNESIUM (BEAKER) 2.0 mg/dL 1.6-2.6 Specimen slightly (test code = 627) hemolyzed Needle Grader ID - DBCALCIUM, [id number] 03:21:59 Test Item Value Reference Range Interpretation Comments CALCIUM IONIZED (BEAKER) (test 1.11 mmol/L 1.12-1.27 L code = 698) PH, BLOOD (BEAKER) (test code = 7.41 1810) CBC W/PLT COUNT & AUTO [id number] 03:10:35 Test Item Value Reference Range Interpretation Comments WHITE BLOOD CELL COUNT (BEAKER) 3.3 K/ L 3.5-10.5 L (test code = 775) RED BLOOD CELL COUNT (BEAKER) 2.88 M/ L 3.93-5.22 L (test code = 761) HEMOGLOBIN (BEAKER) (test code = 8.8 GM/DL 11.2-15.7 L 410) HEMATOCRIT (BEAKER) (test code = 27.2 % 34.1-44.9 L 411) MEAN CORPUSCULAR VOLUME (BEAKER) 94.4 fL 79.4-94.8 (test code = 753) MEAN CORPUSCULAR HEMOGLOBIN 30.6 pg 25.6-32.2 (BEAKER) (test code = 751) MEAN CORPUSCULAR HEMOGLOBIN CONC 32.4 GM/DL 32.2-35.5 (BEAKER) (test code = 752) RED CELL DISTRIBUTION WIDTH 16.8 % 11.7-14.4 H (BEAKER) (test code = 412) PLATELET COUNT (BEAKER) (test code 49 K/CU MM 150-450 L = 756) MEAN PLATELET VOLUME (BEAKER) 14.1 fL 9.4-12.3 H (test code = 754) NUCLEATED RED BLOOD CELLS (BEAKER) 0 /100 WBC 0-0 (test code = 413) NEUTROPHILS RELATIVE PERCENT 61 % (BEAKER) (test code = 429) LYMPHOCYTES RELATIVE PERCENT 19 % (BEAKER) (test code = 430) MONOCYTES RELATIVE PERCENT 13 % (BEAKER) (test code = 431) EOSINOPHILS RELATIVE PERCENT 6 % (BEAKER) (test code = 432) BASOPHILS RELATIVE PERCENT 0 % (BEAKER) (test code = 437) NEUTROPHILS ABSOLUTE COUNT 2.03 K/ L 1.56-6.13 (BEAKER) (test code = 670) LYMPHOCYTES ABSOLUTE COUNT 0.64 K/ L 1.18-3.74 L (BEAKER) (test code = 414) MONOCYTES ABSOLUTE COUNT (BEAKER) 0.43 K/ L 0.24-0.36 H (test code = 415) EOSINOPHILS ABSOLUTE COUNT 0.20 K/ L 0.04-0.36 (BEAKER) (test code = 416) BASOPHILS ABSOLUTE COUNT (BEAKER) 0.01 K/ L 0.01-0.08 (test code = 417) IMMATURE GRANULOCYTES-RELATIVE 1 % 0-1 PERCENT (BEAKER) (test code = 2801) POCT-GLUCOSE [id number] 20:59:46 Test Item Value Reference Range Interpretation Comments POC-GLUCOSE METER 77 mg/dL 70-110 : TESTED A T [facility] 6720 ([facility]) (test code = RENE Santana [facility], 1538) [address]: Needle Grader/Techni donn ID = [id number] for SEMI EN, TORSTEN RAD, CHEST, 1 VIEW, NON [id number] 14:36:00Reason for exam:->edemaShould this be performed at the bedside?->Yes [facility] 1940 Sex: FFINAL REPORT TECHNIQUE: Frontal view of the chest. INDICATION: edema. COMPARISON: 01/01/2014. FINDINGS: LINES/TUBES: None. HEART AND MEDIASTINUM: The cardiac silhouette is normal in size. LUNGS: Mild bibasilar atelectatic change.. No consolidation or pulmonary edema. PLEURA:No pneumothorax or significant pleural effusion. SOFT TISSUES AND BONES: Unremarkable. IMPRESSION:Nopulmonary edema. Mild bibasilar atelectatic change. Signed: Juarez Florezeport Verified Date/Time: 10/09/2021 14:36:10 B-TYPE NATRIURETIC FACTOR (BNP)2021-10-09 13:00:14 Test Item Value Reference Range Interpretation Comments B-TYPE NATRIURETIC PEPTIDE (BEAKER) 510 pg/mL 0-100 H (test code = 700) Needle Grader ID - DBPOCT-GLUCOSE [id number] 11:53:11 Test Item Value Reference Range Interpretation Comments POC-GLUCOSE METER 85 mg/dL 70-110 : TESTED A T [facility] 6720 (BEAKER) (test code = [facility], 1538) [address]: Needle Grader/Techni donn ID = [id number] for Blanca Stratton POCT-GLUCOSE [id number] 07:21:21 Test Item Value Reference Range Interpretation Comments POC-GLUCOSE METER 71 mg/dL 70-110 : TESTED A T [facility] 6720 (BEAKER) (test code = [facility] [place] [facility], 1538) [address]: Needle Grader/Techni donn ID = [id number] for ROSALIA LIMA JEAN BASIC METABOLIC [id number] 05:29:18 Test Item Value Reference Range Interpretation Comments SODIUM (BEAKER) 136 meq/L 136-145 (test code = 381) POTASSIUM (BEAKER) 3.9 meq/L 3.5-5.1 (test code = 379) CHLORIDE (BEAKER) 104 meq/L 98-107 (test code = 382) CO2 (BEAKER) (test 21 meq/L 22-29 L code = 355) BLOOD UREA NITROGEN 34 mg/dL 7-21 H (BEAKER) (test code = 354) CREATININE (BEAKER) 1.92 mg/dL 0.57-1.25 H (test code = 358) GLUCOSE RANDOM 77 mg/dL 70-105 (BEAKER) (test code = 652) CALCIUM (BEAKER) 8.4 mg/dL 8.4-10.2 (test code = 697) EGFR (BEAKER) (test 25 mL/min/1.73 ESTIMA ILEANA GFR IS code = 1092) sq m NOT ACCURATE CREATININE CLEARANCE IN PREDICTING GLOMERULAR FILTRATION RATE . ESTIMATED GFR I S NOT APPLICABLE FOR DIALYSIS PATIEN TS. Needle Grader ID Ronnie BATISTA WHEPATIC FUNCTION [id number] 05:16:30 Test Item Value Reference Range Interpretation Comments TOTAL PROTEIN (BEAKER) (test code = 5.9 gm/dL 6.0-8.3 L 770) ALBUMIN (BEAKER) (test code = 1145) 3.0 g/dL 3.5-5.0 L BILIRUBIN TOTAL (BEAKER) (test code 0.5 mg/dL 0.2-1.2 = 377) BILIRUBIN DIRECT (BEAKER) (test 0.3 mg/dL 0.1-0.5 code = 706) ALKALINE PHOSPHATASE (BEAKER) (test 107 U/L 40-150 code = 346) AST (SGOT) (BEAKER) (test code = 21 U/L 5-34 353) ALT (SGPT) (BEAKER) (test code = 9 U/L 6-55 347) Needle Grader ID Ronnie BATISTA WCBC W/PLT COUNT & AUTO [id number] 04:51:26 Test Item Value Reference Range Interpretation Comments WHITE BLOOD CELL COUNT (BEAKER) 2.7 K/ L 3.5-10.5 L (test code = 775) RED BLOOD CELL COUNT (BEAKER) 2.15 M/ L 3.93-5.22 L (test code = 761) HEMOGLOBIN (BEAKER) (test code = 7.5 GM/DL 11.2-15.7 L 410) HEMATOCRIT (BEAKER) (test code = 20.5 % 34.1-44.9 L 411) MEAN CORPUSCULAR VOLUME (BEAKER) 95.3 fL 79.4-94.8 H (test code = 753) MEAN CORPUSCULAR HEMOGLOBIN 34.9 pg 25.6-32.2 H (BEAKER) (test code = 751) MEAN CORPUSCULAR HEMOGLOBIN CONC 36.6 GM/DL 32.2-35.5 H (BEAKER) (test code = 752) RED CELL DISTRIBUTION WIDTH 16.0 % 11.7-14.4 H (BEAKER) (test code = 412) PLATELET COUNT (BEAKER) (test code 53 K/CU MM 150-450 L = 756) MEAN PLATELET VOLUME (BEAKER) 14.1 fL 9.4-12.3 H (test code = 754) NUCLEATED RED BLOOD CELLS (BEAKER) 0 /100 WBC 0-0 (test code = 413) NEUTROPHILS RELATIVE PERCENT 54 % (BEAKER) (test code = 429) LYMPHOCYTES RELATIVE PERCENT 21 % (BEAKER) (test code = 430) MONOCYTES RELATIVE PERCENT 16 % (BEAKER) (test code = 431) EOSINOPHILS RELATIVE PERCENT 7 % (BEAKER) (test code = 432) BASOPHILS RELATIVE PERCENT 1 % (BEAKER) (test code = 437) NEUTROPHILS ABSOLUTE COUNT 1.47 K/ L 1.56-6.13 L (BEAKER) (test code = 670) LYMPHOCYTES ABSOLUTE COUNT 0.58 K/ L 1.18-3.74 L (BEAKER) (test code = 414) MONOCYTES ABSOLUTE COUNT (BEAKER) 0.44 K/ L 0.24-0.36 H (test code = 415) EOSINOPHILS ABSOLUTE COUNT 0.18 K/ L 0.04-0.36 (BEAKER) (test code = 416) BASOPHILS ABSOLUTE COUNT (BEAKER) 0.02 K/ L 0.01-0.08 (test code = 417) IMMATURE GRANULOCYTES-RELATIVE 1 % 0-1 PERCENT (BEAKER) (test code = 2801) SARS-COV2/RT-PCR ([facility])2021-10-08 21:25:39 Test Item Value Reference Range Interpretation Comments SARS-COV2/RT-PCR Negative Negative The SARS-Co V-2 target (test code = nucleic acids a re not 2022399) detected in thi s specimen. Negative result [...] revoked sooner. Fact Sheet for Healthcare Providers: https://www.iSnap/Documents/Xpert%20Xpress%20SARS%20CoV-2/Fact%20Sheets/302-3802%20SARS-COV -2%20HEALTHCARE%20PROVIDERS%20FACT%20SHEET.pdf Fact Sheet for Healthcare Patients: https://www.gopogo/Documents/Xpert %20Xpress%20SARS%20CoV-2/Fact%20Sheets/3023801%93UGAN-WOC-3%20PATIENT%20FACT%20 SHEET.pdfCOMPREHENSIVE METABOLIC [id number] 18:45:54 Test Item Value Reference Range Interpretation Comments TOTAL PROTEIN 6.7 gm/dL 6.0-8.3 Specimen sligh tly (BEAKER) (test code = hemoly zed 770) ALBUMIN (BEAKER) 3.0 g/dL 3.5-5.0 L Specimen sl ightly (test code = 1145) hemolyzed ALKALINE PHOSPHATASE 144 U/L 40-150 (BEAKER) (test code = 346) BILIRUBIN TOTAL 0.5 mg/dL 0.2-1.2 Specimen sli ghtly (BEAKER) (test code = hemoly zed 377) SODIUM (BEAKER) (test 133 meq/L 136-145 L code = 381) POTASSIUM (BEAKER) 4.5 meq/L 3.5-5.1 Specimen slightly (test code = 379) hemolyzed CHLORIDE (BEAKER) 101 meq/L 98-107 (test code = 382) CO2 (BEAKER) (test 19 meq/L 22-29 L code = 355) BLOOD UREA NITROGEN 35 mg/dL 7-21 H (BEAKER) (test code = 354) CREATININE (BEAKER) 2.20 mg/dL 0.57-1.25 H Specimen slightly (test code = 358) hemolyzed GLUCOSE RANDOM 114 mg/dL 70-105 H (BEAKER) (test code = 652) CALCIUM (BEAKER) 8.4 mg/dL 8.4-10.2 (test code = 697) AST (SGOT) (BEAKER) 27 U/L 5-34 Specimen slightly (test code = 353) hemolyzed ALT (SGPT) (BEAKER) 11 U/L 6-55 Specimen slightly (test code = 347) hemolyzed EGFR (BEAKER) (test 21 mL/min/1.73 ESTIMA ILEANA GFR IS code = 1092) sq m NOT ACCURATE CREATININE CLEARANCE IN PREDICTING GLOMERULAR FILTRATION RATE . ESTIMATED GFR I S NOT APPLICABLE FOR DIALYSIS PATIEN TS. Needle Grader ID - DBPT/[id number] 18:37:31 Test Item Value Reference Range Interpretation Comments PROTIME (BEAKER) (test 15.0 seconds 11.9-14.2 H code = 759) INR (BEAKER) (test 1.19 See_Comment [Automat ed code = 370) message] The sy stem which generated this result transmitted reference range : <=5.90. The reference range was not used to interpret this result as normal/abnormal . PARTIAL THROMBOPLASTIN 28.0 seconds 22.5-36.0 TIME (BEAKER) (test code = 760) RECOMMENDED COUMADIN/WARFARIN INR THERAPY RANGESSTANDARD DOSE: 2.0 - 3.0 Includes: PROPHYLAXIS forvenous thrombosis, systemic embolization; TREATMENT for venous thrombosis and/or pulmonary embolus.HIGH RISK: Target INR is 2.5-3.5 for patients with mechanical heart valves.CBC W/PLT COUNT & AUTO DIFFERENTIAL 2021-10-08 18:30:18 Test Item Value Reference Range Interpretation Comments WHITE BLOOD CELL COUNT 3.8 K/ L 3.5-10.5 (BEAKER) (test code = 775) RED BLOOD CELL COUNT 2.90 M/ L 3.93-5.22 L (BEAKER) (test code = 761) HEMOGLOBIN (BEAKER) 8.9 GM/DL 11.2-15.7 L (test code = 410) HEMATOCRIT (BEAKER) 27.5 % 34.1-44.9 L (test code = 411) MEAN CORPUSCULAR VOLUME 94.8 fL 79.4-94.8 (BEAKER) (test code = 753) MEAN CORPUSCULAR 30.7 pg 25.6-32.2 HEMOGLOBIN (BEAKER) (test code = 751) MEAN CORPUSCULAR 32.4 GM/DL 32.2-35.5 HEMOGLOBIN CONC (BEAKER) (test code = 752) RED CELL DISTRIBUTION 16.3 % 11.7-14.4 H WIDTH (BEAKER) (test code = 412) PLATELET COUNT (BEAKER) 87 K/CU MM 150-450 L (test code = 756) MEAN PLATELET VOLUME Unable to report due (BEAKER) (test code = to abn ormal Platelet 754) population distribution. NUCLEATED RED BLOOD 0 /100 WBC 0-0 CELLS (BEAKER) (test code = 413) NEUTROPHILS RELATIVE 58 % PERCENT (BEAKER) (test code = 429) LYMPHOCYTES RELATIVE 22 % PERCENT (BEAKER) (test code = 430) MONOCYTES RELATIVE 15 % PERCENT (BEAKER) (test code = 431) EOSINOPHILS RELATIVE 3 % PERCENT (BEAKER) (test code = 432) BASOPHILS RELATIVE 1 % PERCENT (BEAKER) (test code = 437) NEUTROPHILS ABSOLUTE 2.19 K/ L 1.56-6.13 COUNT (BEAKER) (test code = 670) LYMPHOCYTES ABSOLUTE 0.83 K/ L 1.18-3.74 L COUNT (BEAKER) (test code = 414) MONOCYTES ABSOLUTE 0.56 K/ L 0.24-0.36 H COUNT (BEAKER) (test code = 415) EOSINOPHILS ABSOLUTE 0.13 K/ L 0.04-0.36 COUNT (BEAKER) (test code = 416) BASOPHILS ABSOLUTE 0.03 K/ L 0.01-0.08 COUNT (BEAKER) (test code = 417) IMMATURE 1 % 0-1 GRANULOCYTES-RELATIVE PERCENT (BEAKER) (test code = 2801) BODY FLUID CULTURE + GRAM [id number] 13:41:04 Test Item Value Reference Range Interpretation Comments CULTURE (BEAKER) (test code = 1095) No growth [id number] 16:24:06Medical Cytology Report Case: [id number] Authorizing Provider: Lauro Turner, Collected: 10/03/2021 11:03 AM Ordering Location: [address] Received: 10/03/2021 02:28 PM Service Pathologist: Aniceto Morris MD Specimen: Peritoneal Fluid PERITONEAL FLUID (CYTOSPINS AND CELL BLOCK): - NEGATIVE FOR MALIGNANCY Reactive mesothelial cells and mixed acute and chronic inflammation present Signing Pathologist Direct Phone Line: [phone] signed by Aniceto Morris MD on 10/04/2021 at 4:24 [id number], [id number], history significant for DM,diabetic retinopathy, achalasia, prior UGIB / esophagitis and CT findings concerning for cirrhosis, w ho presented to OSH ED for abdominal pain, and bloody stoolPERITONEAL FLUIDA. Peritoneal Fluid.Received 1100 ml yellow volodymyr fluid; prepared 4 cytospins and cell block(A2)(collodion bag) - the cell block was fixed in formalin at 5:00 pm on 10/03/2021erformed. [facility], Department of Pathology, [address] [place] [address], [facility], [address] [place] [address], [facility], [facility] of [facility], [address] [place] [address], IZSJ-GLUCOSE [id number] 12:34:52 Test Item Value Reference Range Interpretation Comments POC-GLUCOSE METER 148 mg/dL 70-110 H : [facility] (test code = [facility], 1538) [address]: Needle Grader/Techni donn ID = [id number] for [place] LLIS, AVA POCT-GLUCOSE [id number] 08:29:45 Test Item Value Reference Range Interpretation Comments POC-GLUCOSE METER 103 mg/dL 70-110 : TESTED A T [facility] 6720 ([employer]) (test code = [facility], 1538) [address]33[address]: Needle Grader/Techni donn ID = [id number] for [place] LLIS, AVA POCT-GLUCOSE [id number] 20:54:21 Test Item Value Reference Range Interpretation Comments POC-GLUCOSE METER 175 mg/dL 70-110 H : TESTED A T [facility] 6720 (BEAKER) (test code = RENE Santana [facility], 1538) [address]: Needle Grader/Techni donn ID = [id number] for TOMMIE GALVAN POCT-GLUCOSE [id number] 18:15:58 Test Item Value Reference Range Interpretation Comments POC-GLUCOSE METER 156 mg/dL 70-110 H : TESTED A T [facility] 6720 (BEAKER) (test code = RENE Santana [facility], 1538) [address]: Needle Grader/Techni donn ID = [id number] for [place] LLIS, AVA U/S, [id number] 17:26:00Labs to be ordered:->Body Fluid Culture (w/Gram Stain, C\\T\\S)Labs to be ordered:->Cell CountLabs to be ordered:- >CytologyReason for exam:->diagnosticv paracenetsis [facility] : 1940 Sex: FFINAL REPORT Ultrasound guided paracentesis. Clinical History: Ascites. Sedation: None. Dairy Farm Supervisor: Alexa Johnson PA-C Test Rack Operator: None. Estimated Blood Loss: < 1 cc. Specimen: 2300 cc of clear yellow fluid, samples sent to laboratory. Technique: Informed consent was obtained. The risks of pain, bleeding, infection, bowel perforation, injury to adjacent structures, and adverse medication reactions were discussed with the patient. After informed consent was obtained, the patient's abdomen was scanned. The right mid quadrant of the abdomen was selected for paracentesis. After the largest fluid pocket area was marked, and the anterior abdominal wall was evaluated with color Doppler to exclude presence of blood vessels traversing the area, the skin was prepped and draped in the usual sterile manner. After local anesthesia was achieved with2% lidocaine, a 5 [place]ran one-step catheter was advanced into the peritoneal cavity under ultrasound guidance. After completion of drainage, the catheter was removed. There was no evidence of complication. Impression:Successful ultrasound guided paracentesis. Signed: Vega Weiner Verified Date/Time: 10/03/2021 17:26:23 Reading Location: [address] Ultrasound Reading Room BASI METABOLIC [id number] 14:21:50 Test Item Value Reference Range Interpretation Comments SODIUM (BEAKER) 133 meq/L 136-145 L (test code = 381) POTASSIUM (BEAKER) 4.0 meq/L 3.5-5.1 (test code = 379) CHLORIDE (BEAKER) 99 meq/L 98-107 (test code = 382) CO2 (BEAKER) (test 26 meq/L 22-29 code = 355) BLOOD UREA NITROGEN 34 mg/dL 7-21 H (BEAKER) (test code = 354) CREATININE (BEAKER) 1.13 mg/dL 0.57-1.25 (test code = 358) GLUCOSE RANDOM 194 mg/dL 70-105 H (BEAKER) (test code = 652) CALCIUM (BEAKER) 8.2 mg/dL 8.4-10.2 L (test code = 697) EGFR (BEAKER) (test 46 mL/min/1.73 ESTIMA ILEANA GFR IS code = 1092) sq m NOT ACCURATE CREATININE CLEARANCE IN PREDICTING GLOMERULAR FILTRATION RATE . ESTIMATED GFR I S NOT APPLICABLE FOR DIALYSIS PATIEN TS. Needle Grader ID - DBCBC W/PLT COUNT & AUTO [id number] 14:14:30 Test Item Value Reference Range Interpretation Comments WHITE BLOOD CELL COUNT 4.3 K/ L 3.5-10.5 (BEAKER) (test code = 775) RED BLOOD CELL COUNT 2.89 M/ L 3.93-5.22 L (BEAKER) (test code = 761) HEMOGLOBIN (BEAKER) 8.8 GM/DL 11.2-15.7 L (test code = 410) HEMATOCRIT (BEAKER) 27.0 % 34.1-44.9 L (test code = 411) MEAN CORPUSCULAR VOLUME 93.4 fL 79.4-94.8 (BEAKER) (test code = 753) MEAN CORPUSCULAR 30.4 pg 25.6-32.2 HEMOGLOBIN (BEAKER) (test code = 751) MEAN CORPUSCULAR 32.6 GM/DL 32.2-35.5 HEMOGLOBIN CONC (BEAKER) (test code = 752) RED CELL DISTRIBUTION 16.1 % 11.7-14.4 H WIDTH (BEAKER) (test code = 412) PLATELET COUNT (BEAKER) 57 K/CU MM 150-450 L (test code = 756) MEAN PLATELET VOLUME Unable to report due (BEAKER) (test code = to abn ormal Platelet 754) population distribution. NUCLEATED RED BLOOD 0 /100 WBC 0-0 CELLS (BEAKER) (test code = 413) NEUTROPHILS RELATIVE 72 % PERCENT (BEAKER) (test code = 429) LYMPHOCYTES RELATIVE 12 % PERCENT (BEAKER) (test code = 430) MONOCYTES RELATIVE 11 % PERCENT (BEAKER) (test code = 431) EOSINOPHILS RELATIVE 3 % PERCENT (BEAKER) (test code = 432) BASOPHILS RELATIVE 0 % PERCENT (BEAKER) (test code = 437) NEUTROPHILS ABSOLUTE 3.09 K/ L 1.56-6.13 COUNT (BEAKER) (test code = 670) LYMPHOCYTES ABSOLUTE 0.53 K/ L 1.18-3.74 L COUNT (BEAKER) (test code = 414) MONOCYTES ABSOLUTE 0.47 K/ L 0.24-0.36 H COUNT (BEAKER) (test code = 415) EOSINOPHILS ABSOLUTE 0.13 K/ L 0.04-0.36 COUNT (BEAKER) (test code = 416) BASOPHILS ABSOLUTE 0.01 K/ L 0.01-0.08 COUNT (BEAKER) (test code = 417) IMMATURE 1 % 0-1 GRANULOCYTES-RELATIVE PERCENT (BEAKER) (test code = 2801) BODY FLUID CELL COUNT WITH [id number] 13:49:48 Test Item Value Reference Range Interpretation Comments APPEARANCE FLUID Clear Clear (BEAKER) (test code = 510) COLOR FLUID (BEAKER) Yellow Colorless, Straw A (test code = 511) RBC FLUID (BEAKER) 28 /cu mm See_Comment H [Automat ed message] (test code = 513) The system which generated this result transmitted ref erence range: <=1. The reference range was not used to int erpret this result as normal/abnormal . ADJUSTED WBC FLUID 12 /cu mm See_Comment H [Automat ed message] (BEAKER) (test code = The sy stem which 1691) generated this result transmitted ref erence range: <=5. The reference range was not used to int erpret this result as normal/abnormal . LINING CELLS (BEAKER) 0 /cu mm See_Comment [Auto mated message] (test code = 1590) The syste m which generated this result transmitted ref erence range: <=1. The reference range was not used to int erpret this result as normal/abnormal . NEUTROPHILS FLUID 3 % (BEAKER) (test code = 1656) LYMPHS FLUID (BEAKER) 21 % (test code = 488) MONO/MACROPHAGE FLUID 76 % (BEAKER) (test code = 489) EOSINOPHILS FLUID 0 % (BEAKER) (test code = 491) BASO FLUID (BEAKER) 0 % (test code = 492) CONTAINER BODY FLUID EDTA Tube (BEAKER) (test code = 2873) POCT-GLUCOSE [id number] 12:08:30 Test Item Value Reference Range Interpretation Comments POC-GLUCOSE METER 109 mg/dL 70-110 : TESTED A T [facility] 6720 (BEAKER) (test code = [facility], 1538) [address]: Needle Grader/Techni donn ID = [id number] for [place] LLIS, AVA POCT-GLUCOSE [id number] 08:20:04 Test Item Value Reference Range Interpretation Comments POC-GLUCOSE METER 114 mg/dL 70-110 H : TESTED A T [facility] 6720 (BEAKER) (test code = [facility], 1538) 747[address]: Needle Grader/Techni donn ID = [id number] for [place] LLIS, AVA SARS-COV2/RT-PCR ([facility])2021-10-03 03:36:01 Test Item Value Reference Range Interpretation Comments SARS-COV2/RT-PCR (test Negative Not Detected, Negative, code = 4432111) See external report for linked test SARS-COV-2 PERFORMING LAB [facility] (test code = 6835920) Negative result for this test determines that SARS-CoV-2 RNA was not present in the specimen above the Limit of Detection (LOD). However, Negative results do not preclude SARS-CoV-2 infection and should not be used as the sole basis for treatment or patient management decisions. Negative results mustbe combined with clinical observations, patient history, and epidemiological information. A false negative result may occur if a specimen is improperly collected, transported or handled. A false negative result should be considered if patient's recent exposures or clinical presentation indicate that COVID-19 (SARS-CoV-2) is likely and diagnostic tests for other causes of illness are negative. Re-testing should be considered in cases of suspected false negatives.The limit of detection for this assay is 800 copies/mL.This SARS CoV-2 test is a real-time RT-PCR test intended for the qualitative detection of nucleic acid from SARS-CoV-2 in a nasopharyngeal swab specimen collected from individuals susp ected of COVID-19 by their healthcare provider.This test has not been Food and Drug Administration (FDA) cleared or approved. This is a modified version of an approved Emergency Use Authorization (EUA) and is in the process of review by the FDA. Once authorized by the FDA, the issued EUA will be effective until the declaration that circumstances exist justifying the authorization of the emergency use of in vitro diagnostic tests for detection and/or diagnosis of COVID-19 is terminated under Section 564(b)(2) of the Act or the EUA is revoked under Section 564(g) of the Act.Fact Sheet for Healthcare Providers:https://www.[employer].com/sites/default/files/product/documents/Fact_Shee r_RF_Kndozxtgq_Gmqk_CRFV-SrO-3.pdfFact Sheet for Healthcare Patients:https://www.[employer].com/sites/default/files/product/ documents/Mtdk_Oanpo_Tdbutbdo_Azuv_OKLE-YeB-5.pdfPerforming Laboratory:[facility], [place] [address]SE PATHOGEN PROFILE BY [id number] 22:02:50 Test Item Value Reference Range Interpretation Comments CAMPYLOBACTER (PCR) Not detected Not detected (test code = 0830444) PLESIOMONAS SHIGELLOIDES Not detected Not detected (PCR) (test code = 9455388) SALMONELLA (PCR) (test Not detected Not detected code = 2296398) YERSINIA ENTEROCOLITICA Not detected Not detected (PCR) (test code = 0407465) VIBRIO CHOLERAE (PCR) Not detected Not detected (test code = 1871187) ENTEROAGGREGATIVE E. Not detected Not detected COLI (EAEC) BY PCR (test code = 3716664) ENTEROPATHOGENIC E. COLI Detected Not detected A Ant i-microbial (EPEC) BY PCR (test code cliff atment is NOT = [id number]) recommended ENTEROTOXIGENIC E. COLI Not detected Not detected (ETEC) LT/ST BY PCR (test code = 5814604) SHIGA-LIKE Not detected Not detected TOXIN-PRODUCING E. COLI (STEC) STX1/STX2 (test code = 7694521) E. COLI O157 (PCR) (test code = 0130797) SHIGELLA/ENTEROINVASIVE Not detected Not detected E. COLI (EIEC) BY PCR (test code = 2921097) CRYPTOSPORIDIUM (PCR) Not detected Not detected (test code = 8683138) CYCLOSPORA CAYETANENSIS Not detected Not detected (PCR) (test code = 7975807) ENTAMOEBA HISTOLYTICA Not detected Not detected (PCR) (test code = 6953524) GIARDIA LAMBLIA (PCR) Not detected Not detected (test code = 1631759) ADENOVIRUS F 40/41 (PCR) Not detected Not detected (test code = 8340425) ASTROVIRUS (PCR) (test Not detected Not detected code = 5420643) NOROVIRUS GI/GII (PCR) Not detected Not detected (test code = 2513595) ROTAVIRUS A (PCR) (test Not detected Not detected code = 1110404) SAPOVIRUS (I, II, IV, V) Not detected Not detected BY PCR (test code = 3237665) VIBRIO Not detected Not detected (PARAHAEMOLYTICUS, VULNIFICUS) (test code = 1300998) Other viruses, parasites and bacteria not targeted by this PCR panel cannot be excluded; therefore clinical correlation and follow up of serology, culture results, and other molecular studies is required. The results are not intended to be used as the sole means for clinical diagnosis or patient management decisions. This sample was tested at the [facility] using the GeneCapture Gastrointestinal Panel. It is FDA cleared and has been verified and approved by the [facility] for clinical use. This laboratory is CLIA-certified and College ofAmerican Pathologists (CAP)-accredited to perform high complexity testing.POCT-GLUCOSE [id number] 20:22:57 Test Item Value Reference Range Interpretation Comments POC-GLUCOSE METER 122 mg/dL 70-110 H : TESTED A T [facility] 6720 (BEAKER) (test code = [facility], 1538) 36740: Needle Grader/Techni donn ID = [id number] for MARGARITO LOPEZA POCT-GLUCOSE [id number] 16:37:56 Test Item Value Reference Range Interpretation Comments POC-GLUCOSE METER 128 mg/dL 70-110 H : TESTED A T [facility] 6720 (BEAKER) (test code [facility], = 1538) 47982: Needle Grader/Techni donn ID = [id number] for WILS ON, SHASTANIE POCT-GLUCOSE [id number] 11:27:14 Test Item Value Reference Range Interpretation Comments POC-GLUCOSE METER 161 mg/dL 70-110 H : TESTED A T [facility] 6720 (BEAKER) (test code [facility], = 1538) 86720: Needle Grader/Techni donn ID = [id number] for WILS ON, SHASTANIE POCT-GLUCOSE [id number] 07:56:47 Test Item Value Reference Range Interpretation Comments POC-GLUCOSE METER 119 mg/dL 70-110 H : TESTED A T [facility] 6720 (BEAKER) (test code [facility], = 1538) 22187: Needle Grader/Techni donn ID = [id number] for WILS ON, SHASTANIE POCT-GLUCOSE [id number] 22:54:55 Test Item Value Reference Range Interpretation Comments POC-GLUCOSE METER 144 mg/dL 70-110 H : TESTED A T [facility] 6720 (BEAKER) (test code = [facility], 1538) 91164: Needle Grader/Techni donn ID = [id number] for OR ELLANA, TASH POCT-GLUCOSE [id number] 16:53:10 Test Item Value Reference Range Interpretation Comments POC-GLUCOSE METER 131 mg/dL 70-110 H : TESTED A T [facility] 6720 (BEAKER) (test code = [facility], 1538) 81332: Needle Grader/Techni donn ID = [id number] for ANGELICA GALINDO TTBri BODY FLUID CULTURE + GRAM [id number] 13:11:56 Test Item Value Reference Range Interpretation Comments CULTURE (BEAKER) (test code = 1095) No growth POCT-GLUCOSE [id number] 12:12:11 Test Item Value Reference Range Interpretation Comments POC-GLUCOSE METER 212 mg/dL 70-110 H : TESTED A T [facility] 6720 (BEAKER) (test code = [facility], 1538) 28958: Needle Grader/Techni donn ID = [id number] for ANGELICA GALINDO TTBri POCT-GLUCOSE [id number] 07:50:23 Test Item Value Reference Range Interpretation Comments POC-GLUCOSE METER 118 mg/dL 70-110 H : TESTED A T [facility] 6720 (BEAKER) (test code = [facility], 1538) 00926: Needle Grader/Techni donn ID = [id number] for ANGELICA GALINDO TTBri BASIC METABOLIC [id number] 06:31:42 Test Item Value Reference Range Interpretation Comments SODIUM (BEAKER) 134 meq/L 136-145 L (test code = 381) POTASSIUM (BEAKER) 3.6 meq/L 3.5-5.1 (test code = 379) CHLORIDE (BEAKER) 101 meq/L 98-107 (test code = 382) CO2 (BEAKER) (test 23 meq/L 22-29 code = 355) BLOOD UREA NITROGEN 57 mg/dL 7-21 H (BEAKER) (test code = 354) CREATININE (BEAKER) 1.25 mg/dL 0.57-1.25 (test code = 358) GLUCOSE RANDOM 141 mg/dL 70-105 H (BEAKER) (test code = 652) CALCIUM (BEAKER) 8.2 mg/dL 8.4-10.2 L (test code = 697) EGFR (BEAKER) (test 41 mL/min/1.73 ESTIMA ILEANA GFR IS code = 1092) sq m NOT ACCURATE CREATININE CLEARANCE IN PREDICTING GLOMERULAR FILTRATION RATE . ESTIMATED GFR I S NOT APPLICABLE FOR DIALYSIS PATIEN TS. Needle Grader ID - RADU MCBC W/PLT COUNT & AUTO [id number] 06:24:22 Test Item Value Reference Range Interpretation Comments WHITE BLOOD CELL COUNT (BEAKER) 5.2 K/ L 3.5-10.5 (test code = 775) RED BLOOD CELL COUNT (BEAKER) 2.77 M/ L 3.93-5.22 L (test code = 761) HEMOGLOBIN (BEAKER) (test code = 8.4 GM/DL 11.2-15.7 L 410) HEMATOCRIT (BEAKER) (test code = 25.4 % 34.1-44.9 L 411) MEAN CORPUSCULAR VOLUME (BEAKER) 91.7 fL 79.4-94.8 (test code = 753) MEAN CORPUSCULAR HEMOGLOBIN 30.3 pg 25.6-32.2 (BEAKER) (test code = 751) MEAN CORPUSCULAR HEMOGLOBIN CONC 33.1 GM/DL 32.2-35.5 (BEAKER) (test code = 752) RED CELL DISTRIBUTION WIDTH 15.3 % 11.7-14.4 H (BEAKER) (test code = 412) PLATELET COUNT (BEAKER) (test code 68 K/CU MM 150-450 L = 756) MEAN PLATELET VOLUME (BEAKER) 12.7 fL 9.4-12.3 H (test code = 754) NUCLEATED RED BLOOD CELLS (BEAKER) 0 /100 WBC 0-0 (test code = 413) NEUTROPHILS RELATIVE PERCENT 72 % (BEAKER) (test code = 429) LYMPHOCYTES RELATIVE PERCENT 10 % (BEAKER) (test code = 430) MONOCYTES RELATIVE PERCENT 10 % (BEAKER) (test code = 431) EOSINOPHILS RELATIVE PERCENT 5 % (BEAKER) (test code = 432) BASOPHILS RELATIVE PERCENT 0 % (BEAKER) (test code = 437) NEUTROPHILS ABSOLUTE COUNT 3.70 K/ L 1.56-6.13 (BEAKER) (test code = 670) LYMPHOCYTES ABSOLUTE COUNT 0.52 K/ L 1.18-3.74 L (BEAKER) (test code = 414) MONOCYTES ABSOLUTE COUNT (BEAKER) 0.53 K/ L 0.24-0.36 H (test code = 415) EOSINOPHILS ABSOLUTE COUNT 0.25 K/ L 0.04-0.36 (BEAKER) (test code = 416) BASOPHILS ABSOLUTE COUNT (BEAKER) 0.02 K/ L 0.01-0.08 (test code = 417) IMMATURE GRANULOCYTES-RELATIVE 3 % 0-1 H PERCENT (BEAKER) (test code = 2801) POCT-GLUCOSE [id number] 20:17:18 Test Item Value Reference Range Interpretation Comments POC-GLUCOSE METER 152 mg/dL 70-110 H : TESTED A T [facility] 6720 (BEAKER) (test code = [facility], 1538) 57474: Needle Grader/Techni donn ID = [id number] for MALCOM LOPEZ POCT-GLUCOSE [id number] 16:45:52 Test Item Value Reference Range Interpretation Comments POC-GLUCOSE METER 145 mg/dL 70-110 H : TESTED A T [facility] 6720 (BEAKER) (test code = [facility], 1538) 59725: Needle Grader/Techni donn ID = [id number] for QUEEN BLANC CT, ABDOMEN, WITHOUT [id number] 14:45:00Unlisted Reason for Exam - Click Yes and Enter Reason Below->NoWill this procedure require oral contrast?- >NoPlease specify abdominal organs:->Liver [facility] 1940 Sex: FFINAL REPORT TECHNIQUE: CT of the abdomen WITHOUT intravenous contrast and WITHOUT oral contrast. Dose modulation, iterative reconstruction, and/or weight-based adjustment ofthe mA/kV was utilized to reduce the radiation dose to as low as reasonably achievable. INDICATION: LUQ abdominal pain. COMPARISON: None. FINDINGS: ABSENCE OF INTRAVENOUS CONTRAST DECREASES SENSITIVITY FOR DETECTION OF FOCAL LESIONS AND VASCULAR PATHOLOGY. LOWER THORAX: Linear opacities in both lung bases can represent atelectasis and/or aspiration.. Jlvms-rl-ofbaxhxd hiatal hernia containing food material. HEPATOBILIARY: Nodularity of the liver margins suggests findings of chronic liver disease. No definite focal lesions within the liver parenchyma on the noncontrast study. Small focus of calcification in the left lobe of the liver. Status post cholecystectomy. No intrahepatic biliary ductal dilatation..SPLEEN: No splenomegaly.PANCREAS: No focal masses or ductal dilatation. ADRENALS: No adrenalnodules.KIDNEYS/URETERS: No hydronephrosis, stones, or exophytic masses. There is a 6 mm calcific focus in the inferior pole of the right kidney within the cortex. PERITONEUM/RETROPERITONEUM: Small volume ascites in the abdomen..LYMPH NODES: No lymphadenopathy.VESSELS: Atherosclerotic calcification ofthe abdominal aorta extending into both common iliac arteries with scattered calcifications and its branches.. GI TRACT: There is significant wall thickening which likely involves a focal segment of small bowel, although evaluation is limited due to inadequate coverage of anatomy (as denoted by multiple arrows on image 36 of the axial series).. BONES AND SOFT TISSUES: Unremarkable. IMPRESSION:Pleasen[place], evaluation is extremely limited due to lack of administration of intravenous contrast and coverage of the abdomen only. 1.Focal segment of bowel wall thickening likely involving the loops of small bowel which can represent infectious or inflammatory etiology. Further evaluation with CT of the abdomen and pelvis with intravenous contrast is recommended.2.Nodular contour of the liver margins is suggestive of chronic liver disease. Please correlate with liver function tests.3.Linear opacities in both lung bases can represent atelectasis and/or aspiration.4.Moderate-sized hiatal hernia.5.Small volume ascites in the abdomen and pelvis. Signed: Tramaine Martinez MDReport Verified Date/Time: 09/30/2021 14:45:45 Reading Location: [facility] Reading Room ALYSIS W/ REFLEX URINE [id number] 11:13:08 Test Item Value Reference Range Interpretation Comments COLOR (BEAKER) (test code = 470) [place] CLARITY (BEAKER) (test code = 469) Cloud[place] SPECIFIC GRAVITY UA (BEAKER) (test 1.015 1.001-1.035 code = 468) PH UA (BEAKER) (test code = 467) 5.5 5.0-8.0 PROTEIN UA (BEAKER) (test code = 20 mg/dL Negative A 464) GLUCOSE UA (BEAKER) (test code = Negative Negative 365) KETONES UA (BEAKER) (test code = Trace Negative A 371) BILIRUBIN UA (BEAKER) (test code = Negative Negative 462) BLOOD UA (BEAKER) (test code = 461) Large Negative A NITRITE UA (BEAKER) (test code = Negative Negative 465) LEUKOCYTE ESTERASE UA (BEAKER) Large Negative A (test code = 466) UROBILINOGEN UA (BEAKER) (test code 0.2 mg/dL 0.2-1.0 = 463) RBC UA (BEAKER) (test code = 519) 8 /HPF WBC UA (BEAKER) (test code = 520) 43 /HPF BACTERIA (BEAKER) (test code = 517) Many MUCUS (BEAKER) (test code = 1574) Many SQUAMOUS EPITHELIAL (BEAKER) (test 4 /HPF code = 516) CRYSTALS, URINE (BEAKER) (test code None Seen = 1521) AMORPHOUS CRYSTALS (BEAKER) (test Moderate code = 1584) SOURCE(BEAKER) (test code = 2795) Needle Grader ID - [auto]Needle Grader ID - techPOCT-GLUCOSE [id number] 10:51:06 Test Item Value Reference Range Interpretation Comments POC-GLUCOSE METER 196 mg/dL 70-110 H : TESTED A T [facility] 6720 (BEAKER) (test code = [facility], 1538) 17327: Needle Grader/Techni donn ID = [id number] for QUEEN BLANC HEMOGLOBIN AND [id number] 09:53:49 Test Item Value Reference Range Interpretation Comments HEMOGLOBIN (BEAKER) (test code = 6.9 GM/DL 11.2-15.7 L 410) HEMATOCRIT (BEAKER) (test code = 21.7 % 34.1-44.9 L 411) Needle Grader ID - 6000POCT-GLUCOSE [id number] 07:38:39 Test Item Value Reference Range Interpretation Comments POC-GLUCOSE METER 143 mg/dL 70-110 H : TESTED A T [facility] 6720 (BEAKER) (test code = [facility] [place], 1538) 20012: Needle Grader/Techni donn ID = [id number] for QUEEN BLANC BASIC METABOLIC [id number] 04:55:25 Test Item Value Reference Range Interpretation Comments SODIUM (BEAKER) 138 meq/L 136-145 (test code = 381) POTASSIUM (BEAKER) 3.2 meq/L 3.5-5.1 L (test code = 379) CHLORIDE (BEAKER) 101 meq/L 98-107 (test code = 382) CO2 (BEAKER) (test 24 meq/L 22-29 code = 355) BLOOD UREA NITROGEN 70 mg/dL 7-21 H (BEAKER) (test code = 354) CREATININE (BEAKER) 1.55 mg/dL 0.57-1.25 H (test code = 358) GLUCOSE RANDOM 153 mg/dL 70-105 H (BEAKER) (test code = 652) CALCIUM (BEAKER) 8.0 mg/dL 8.4-10.2 L (test code = 697) EGFR (BEAKER) (test 32 mL/min/1.73 ESTIMA ILEANA GFR IS code = 1092) sq m NOT ACCURATE CREATININE CLEARANCE IN PREDICTING GLOMERULAR FILTRATION RATE . ESTIMATED GFR I S NOT APPLICABLE FOR DIALYSIS PATIEN TS. Needle Grader ID - RADU MCBC W/PLT COUNT & AUTO [id number] 04:22:50 Test Item Value Reference Range Interpretation Comments WHITE BLOOD CELL COUNT (BEAKER) 7.2 K/ L 3.5-10.5 (test code = 775) RED BLOOD CELL COUNT (BEAKER) 2.18 M/ L 3.93-5.22 L (test code = 761) HEMOGLOBIN (BEAKER) (test code = 6.4 GM/DL 11.2-15.7 L 410) HEMATOCRIT (BEAKER) (test code = 20.4 % 34.1-44.9 L 411) MEAN CORPUSCULAR VOLUME (BEAKER) 93.6 fL 79.4-94.8 (test code = 753) MEAN CORPUSCULAR HEMOGLOBIN 29.4 pg 25.6-32.2 (BEAKER) (test code = 751) MEAN CORPUSCULAR HEMOGLOBIN CONC 31.4 GM/DL 32.2-35.5 L (BEAKER) (test code = 752) RED CELL DISTRIBUTION WIDTH 15.8 % 11.7-14.4 H (BEAKER) (test code = 412) PLATELET COUNT (BEAKER) (test code 80 K/CU MM 150-450 L = 756) MEAN PLATELET VOLUME (BEAKER) 12.8 fL 9.4-12.3 H (test code = 754) NUCLEATED RED BLOOD CELLS (BEAKER) 0 /100 WBC 0-0 (test code = 413) NEUTROPHILS RELATIVE PERCENT 72 % (BEAKER) (test code = 429) LYMPHOCYTES RELATIVE PERCENT 12 % (BEAKER) (test code = 430) MONOCYTES RELATIVE PERCENT 10 % (BEAKER) (test code = 431) EOSINOPHILS RELATIVE PERCENT 2 % (BEAKER) (test code = 432) BASOPHILS RELATIVE PERCENT 0 % (BEAKER) (test code = 437) NEUTROPHILS ABSOLUTE COUNT 5.13 K/ L 1.56-6.13 (BEAKER) (test code = 670) LYMPHOCYTES ABSOLUTE COUNT 0.85 K/ L 1.18-3.74 L (BEAKER) (test code = 414) MONOCYTES ABSOLUTE COUNT (BEAKER) 0.69 K/ L 0.24-0.36 H (test code = 415) EOSINOPHILS ABSOLUTE COUNT 0.17 K/ L 0.04-0.36 (BEAKER) (test code = 416) BASOPHILS ABSOLUTE COUNT (BEAKER) 0.02 K/ L 0.01-0.08 (test code = 417) IMMATURE GRANULOCYTES-RELATIVE 4 % 0-1 H PERCENT (BEAKER) (test code = 2801) POCT-GLUCOSE [id number] 22:22:30 Test Item Value Reference Range Interpretation Comments POC-GLUCOSE METER 143 mg/dL 70-110 H : TESTED A T [facility] 6720 (BEAKER) (test code = [facility], 1538) 04978: Needle Grader/Techni donn ID = [id number] for MIKE LAUREANO POCT-GLUCOSE [id number] 21:47:15 Test Item Value Reference Range Interpretation Comments POC-GLUCOSE METER 118 mg/dL 70-110 H : TESTED A T [facility] 6720 (BEAKER) (test code = [facility], 1538) 89877: Needle Grader/Techni donn ID = [id number] for Reuben wood (contract)Ada POCT-GLUCOSE [id number] 18:40:53 Test Item Value Reference Range Interpretation Comments POC-GLUCOSE METER 153 mg/dL 70-110 H : TESTED Juan Nichols [facility] 6720 (BEAKER) (test code = [facility] [place], 1538) 21481: Needle Grader/Techni donn ID = [id number] for JACI LLIS AVA U/S, [id number] 17:56:00Labs to be ordered:->Body Fluid Culture (w/Gram Stain, C\\T\\S)Labs to be ordered:->Anaerobic Culture (w/Gram Stain)Labs to be ordered:->Cell CountReason for exam:->asictis [facility] : 1940 Sex: FFINAL REPORT Ultrasound guided paracentesis Clinical History: Ascites. Sedation: None. Dairy Farm Supervisor: Jalyn Luo PA-C Supervising Physician: Carlitos Ibarra MD Test Rack Operator: None. Estimated Blood Loss: < 1 mL. Specimen: 1300 mL of clear yellow fluid, samples sent to laboratory. Technique: Informed consent was obtained. The risks of pain, bleeding, infection, bowel perforation, injury to adjacent structures, and adverse medication reactions were discussed with the patient. After informed consent was obtained, the patient's abdomen was scanned. The right lower quadrant of the abdomen was selected for paracentesis. After the largest fluid pocket area was marked, and the anterior abdominal wall was evaluated with color Doppler to exclude presenceof blood vessels traversing the area, the skin was prepped and draped in the usual sterile manner. After local anesthesia was achieved with lidocaine, a 5 [place] one-step catheter was advanced into the peritoneal cavity under ultrasound guidance. After completion of drainage, the catheter was removed. There was no evidence of complication. Impression:Successful ultrasound guided paracentesis. Signed: Carlitos Ibarra Verified Date/Time: 09/29/2021 17:56:14 Reading Location: [address] Ultrasound Reading Room POCT-GLUCOSE [id number] 14:14:52 Test Item Value Reference Range Interpretation Comments POC-GLUCOSE METER 145 mg/dL 70-110 H : TESTED A T [facility] 6720 (BEAKER) (test code = [facility] [place] [facility], 153) 58193: Needle Grader/Techni donn ID = [id number] for [place] LLIS, AVA POCT-GLUCOSE [id number] 12:50:02 Test Item Value Reference Range Interpretation Comments POC-GLUCOSE METER 154 mg/dL 70-110 H : TESTED A T [facility] 6720 (BEAKER) (test code = [facility], 1538) 72131: Needle Grader/Techni donn ID = [id number] for [place] POCT-GLUCOSE [id number] 08:30:36 Test Item Value Reference Range Interpretation Comments POC-GLUCOSE METER 151 mg/dL 70-110 H : TESTED A T [facility] 6720 (BEAKER) (test code = [facility] [place] [facility], 1538) 14239: Needle Grader/Techni donn ID = [id number] for [place] LLIS, AVA POCT-GLUCOSE [id number] 20:45:23 Test Item Value Reference Range Interpretation Comments POC-GLUCOSE METER 159 mg/dL 70-110 H : TESTED A T [facility] 6720 (BEAKER) (test code = [facility] [place] [facility], 1538) 19977: Needle Grader/Techni donn ID = [id number] for CR ISAGUSTÍN, TIA POCT-GLUCOSE [id number] 18:24:11 Test Item Value Reference Range Interpretation Comments POC-GLUCOSE METER 169 mg/dL 70-110 H : TESTED A T [facility] 6720 (BEAKER) (test code = [facility] [place], 1538) 06306: Needle Grader/Techni donn ID = [id number] for AVA WEATHERS BODY FLUID CELL COUNT WITH [id number] 17:43:19 Test Item Value Reference Range Interpretation Comments APPEARANCE FLUID Clear Clear (BEAKER) (test code = 510) COLOR FLUID (BEAKER) Straw Colorless, Straw (test code = 511) RBC FLUID (BEAKER) 70 /cu mm See_Comment H [Automat ed message] (test code = 513) The system which generated this result transmitted ref erence range: <=1. The reference range was not used to int erpret this result as normal/abnormal . ADJUSTED WBC FLUID 353 /cu mm See_Comment H [Automat ed message] (BEAKER) (test code = The sy stem which 1692) generated this result transmitted ref erence range: <=5. The reference range was not used to int erpret this result as normal/abnormal . LINING CELLS (BEAKER) 0 /cu mm See_Comment [Auto mated message] (test code = 1590) The syste m which generated this result transmitted ref erence range: <=1. The reference range was not used to int erpret this result as normal/abnormal . NEUTROPHILS FLUID 72 % (BEAKER) (test code = 1656) LYMPHS FLUID (BEAKER) 9 % (test code = 488) MONO/MACROPHAGE FLUID 19 % (BEAKER) (test code = 489) EOSINOPHILS FLUID 0 % (BEAKER) (test code = 491) BASO FLUID (BEAKER) 0 % (test code = 492) CONTAINER BODY FLUID EDTA Tube (BEAKER) (test code = 2873) RAD, ABDOMEN/KUB, 1 VIEW [id number] 13:56:00Reason for exam:->abdominal painShould this be performed at the bedside?->Yes [facility] 1940 Sex: FFINAL REPORT History: Abdominal pain. FINDINGS: Abdomen, single view: Single supine view the abdomen demonstrates minimal colonic gas, stool and small bowel gas in a nonspecific pattern without evidence for obstruction or free air to suggest perforation. No abnormal abdominal pelvic calcifications are identified. Bones are unremarkable. IMPRESSION: 1. Unremarkable abdomen with limited bowel gas in a nonspecific pattern. Signed: Abner Millerort Verified Date/Time: 09/28/2021 13:56:13 Reading Location: [facility] Radiology Reading Room POCT-GLUCOSE [id number] 12:02:09 Test Item Value Reference Range Interpretation Comments POC-GLUCOSE METER 187 mg/dL 70-110 H : TESTED A T [facility] 6720 (BEAKER) (test code = [facility], 1538) 01916: Needle Grader/Techni donn ID = [id number] for [place] LLIS, AVA POCT-GLUCOSE [id number] 08:41:40 Test Item Value Reference Range Interpretation Comments POC-GLUCOSE METER 164 mg/dL 70-110 H : TESTED A T [facility] 6720 (BEAKER) (test code = [facility], 1538) 78428: Needle Grader/Techni donn ID = [id number] for [place] LLIS, AVA [id number] 08:23:39 Test Item Value Reference Range Interpretation Comments PARTIAL THROMBOPLASTIN TIME 36.6 seconds 22.5-36.0 H (BEAKER) (test code = 760) PROTHROMBIN [id number] 08:22:39 Test Item Value Reference Range Interpretation Comments PROTIME (BEAKER) 16.8 seconds 11.9-14.2 H (test code = 759) INR (BEAKER) (test 1.39 See_Comment [Automat ed message] code = 370) The system [employer] generated this result transmitted ref erence range: <=5.90. The reference range was not used to int erpret this result as normal/abnormal . RECOMMENDED COUMADIN/WARFARIN INR THERAPY RANGESSTANDARD DOSE: 2.0 - 3.0 Includes: PROPHYLAXIS forvenous thrombosis, systemic embolization; TREATMENT for venous thrombosis and/or pulmonary embolus.HIGH RISK: Target INR is 2.5-3.5 for patients with mechanical heart valves.COMPREHENSIVE METABOLIC [id number] 05:32:13 Test Item Value Reference Range Interpretation Comments TOTAL PROTEIN 7.3 gm/dL 6.0-8.3 Specimen sligh tly (BEAKER) (test code = hemoly zed 770) ALBUMIN (BEAKER) 3.1 g/dL 3.5-5.0 L Specimen sl ightly (test code = 1145) hemolyzed ALKALINE PHOSPHATASE 150 U/L 40-150 (BEAKER) (test code = 346) BILIRUBIN TOTAL 0.6 mg/dL 0.2-1.2 Specimen sli ghtly (BEAKER) (test code = hemoly zed 377) SODIUM (BEAKER) (test 139 meq/L 136-145 code = 381) POTASSIUM (BEAKER) 4.2 meq/L 3.5-5.1 Specimen slightly (test code = 379) hemolyzed CHLORIDE (BEAKER) 102 meq/L 98-107 (test code = 382) CO2 (BEAKER) (test 22 meq/L 22-29 code = 355) BLOOD UREA NITROGEN 64 mg/dL 7-21 H (BEAKER) (test code = 354) CREATININE (BEAKER) 1.85 mg/dL 0.57-1.25 H Specimen slightly (test code = 358) hemolyzed GLUCOSE RANDOM 170 mg/dL 70-105 H (BEAKER) (test code = 652) CALCIUM (BEAKER) 8.5 mg/dL 8.4-10.2 (test code = 697) AST (SGOT) (BEAKER) 23 U/L 5-34 Specimen slightly (test code = 353) hemolyzed ALT (SGPT) (BEAKER) 11 U/L 6-55 Specimen slightly (test code = 347) hemolyzed EGFR (BEAKER) (test 26 mL/min/1.73 ESTIMA ILEANA GFR IS code = 1092) sq m NOT ACCURATE CREATININE CLEARANCE IN PREDICTING GLOMERULAR FILTRATION RATE . ESTIMATED GFR I S NOT APPLICABLE FOR DIALYSIS PATIEN TS. Needle Grader ID - [id number] (HEMOGRAM ONLY)2021-09-28 04:45:42 Test Item Value Reference Range Interpretation Comments WHITE BLOOD CELL COUNT (BEAKER) 9.3 K/ L 3.5-10.5 (test code = 775) RED BLOOD CELL COUNT (BEAKER) 2.88 M/ L 3.93-5.22 L (test code = 761) HEMOGLOBIN (BEAKER) (test code = 8.6 GM/DL 11.2-15.7 L 410) HEMATOCRIT (BEAKER) (test code = 27.3 % 34.1-44.9 L 411) MEAN CORPUSCULAR VOLUME (BEAKER) 94.8 fL 79.4-94.8 (test code = 753) MEAN CORPUSCULAR HEMOGLOBIN 29.9 pg 25.6-32.2 (BEAKER) (test code = 751) MEAN CORPUSCULAR HEMOGLOBIN CONC 31.5 GM/DL 32.2-35.5 L (BEAKER) (test code = 752) RED CELL DISTRIBUTION WIDTH 15.9 % 11.7-14.4 H (BEAKER) (test code = 412) PLATELET COUNT (BEAKER) (test 110 K/CU MM 150-450 L code = 756) NUCLEATED RED BLOOD CELLS 0 /100 WBC 0-0 (BEAKER) (test code = 413) POCT-GLUCOSE [id number] 01:36:15 Test Item Value Reference Range Interpretation Comments POC-GLUCOSE METER 161 mg/dL 70-110 H : TESTED A T [facility] 6720 (BEAKER) (test code = [place], 1538) [id number]: Needle Grader/Techni donn ID = [id number] for Ri bettina, Ángel COMPREHENSIVE METABOLIC [id number] 19:48:02 Test Item Value Reference Range Interpretation Comments TOTAL PROTEIN 6.3 gm/dL 6.0-8.3 (BEAKER) (test code = 770) ALBUMIN (BEAKER) 2.8 g/dL 3.5-5.0 L (test code = 1145) ALKALINE PHOSPHATASE 139 U/L 40-150 (BEAKER) (test code = 346) BILIRUBIN TOTAL 0.6 mg/dL 0.2-1.2 (BEAKER) (test code = 377) SODIUM (BEAKER) (test 139 meq/L 136-145 code = 381) POTASSIUM (BEAKER) 4.1 meq/L 3.5-5.1 (test code = 379) CHLORIDE (BEAKER) 103 meq/L 98-107 (test code = 382) CO2 (BEAKER) (test 22 meq/L 22-29 code = 355) BLOOD UREA NITROGEN 57 mg/dL 7-21 H (BEAKER) (test code = 354) CREATININE (BEAKER) 1.80 mg/dL 0.57-1.25 H (test code = 358) GLUCOSE RANDOM 195 mg/dL 70-105 H (BEAKER) (test code = 652) CALCIUM (BEAKER) 7.9 mg/dL 8.4-10.2 L (test code = 697) AST (SGOT) (BEAKER) 18 U/L 5-34 (test code = 353) ALT (SGPT) (BEAKER) 7 U/L 6-55 (test code = 347) EGFR (BEAKER) (test 27 mL/min/1.73 ESTIMA ILEANA GFR IS code = 1092) sq m NOT ACCURATE CREATININE CLEARANCE IN PREDICTING GLOMERULAR FILTRATION RATE . ESTIMATED GFR I S NOT APPLICABLE FOR DIALYSIS PATIEN TS. Needle Grader ID - BSCBC W/PLT COUNT & AUTO [id number] 19:34:45 Test Item Value Reference Range Interpretation Comments WHITE BLOOD CELL COUNT 6.6 K/ L 3.5-10.5 (BEAKER) (test code = 775) RED BLOOD CELL COUNT 2.78 M/ L 3.93-5.22 L (BEAKER) (test code = 761) HEMOGLOBIN (BEAKER) 8.2 GM/DL 11.2-15.7 L (test code = 410) HEMATOCRIT (BEAKER) 26.6 % 34.1-44.9 L (test code = 411) MEAN CORPUSCULAR VOLUME 95.7 fL 79.4-94.8 H (BEAKER) (test code = 753) MEAN CORPUSCULAR 29.5 pg 25.6-32.2 HEMOGLOBIN (BEAKER) (test code = 751) MEAN CORPUSCULAR 30.8 GM/DL 32.2-35.5 L HEMOGLOBIN CONC (BEAKER) (test code = 752) RED CELL DISTRIBUTION 15.7 % 11.7-14.4 H WIDTH (BEAKER) (test code = 412) PLATELET COUNT (BEAKER) 88 K/CU MM 150-450 L (test code = 756) MEAN PLATELET VOLUME Unable to report due (BEAKER) (test code = to abn ormal Platelet 754) population distribution. NUCLEATED RED BLOOD 0 /100 WBC 0-0 CELLS (BEAKER) (test code = 413) NEUTROPHILS RELATIVE 78 % PERCENT (BEAKER) (test code = 429) LYMPHOCYTES RELATIVE 8 % PERCENT (BEAKER) (test code = 430) MONOCYTES RELATIVE 11 % PERCENT (BEAKER) (test code = 431) EOSINOPHILS RELATIVE 0 % PERCENT (BEAKER) (test code = 432) BASOPHILS RELATIVE 0 % PERCENT (BEAKER) (test code = 437) NEUTROPHILS ABSOLUTE 5.13 K/ L 1.56-6.13 COUNT (BEAKER) (test code = 670) LYMPHOCYTES ABSOLUTE 0.54 K/ L 1.18-3.74 L COUNT (BEAKER) (test code = 414) MONOCYTES ABSOLUTE 0.71 K/ L 0.24-0.36 H COUNT (BEAKER) (test code = 415) EOSINOPHILS ABSOLUTE 0.00 K/ L 0.04-0.36 L COUNT (BEAKER) (test code = 416) BASOPHILS ABSOLUTE 0.01 K/ L 0.01-0.08 COUNT (BEAKER) (test code = 417) IMMATURE 3 % 0-1 H GRANULOCYTES-RELATIVE PERCENT (BEAKER) (test code = 2801) POCT-GLUCOSE [id number] 17:27:54 Test Item Value Reference Range Interpretation Comments POC-GLUCOSE METER 155 mg/dL 70-110 H : TESTED A T [facility] 6720 (BEAKER) (test code [facility], = 1538) [address]: Needle Grader/Techni donn ID = [id number] for DAVEY PARKER ANTI-MITOCHONDRIAL AB, REFLEX TO [id number] 10:05:23 Test Item Value Reference Range Interpretation Comments SCAN RESULT (test code = 7257917) ABRAHAM TITER AND [id number] 09:19:42 Test Item Value Reference Range Interpretation Comments ABRAHAM TITER (BEAKER) (test code = :640 1541) ABRAHAM PATTERN (BEAKER) (test code = Speckled 1781) ANTI-NUCLEAR ANTIBODY (ABRAHAM)2021-08-02 09:19:35 Test Item Value Reference Range Interpretation Comments ANTI-NUCLEAR ANTIBODY (ABRAHAM) (BEAKER) Positive Negative A (test code = 418) Test performed by IFA method.PHOSPHATIDYLETHANOL, [id number] 08:44:42 Test Item Value Reference Range Interpretation Comments PHOSPHATIDYLETHANOL (PETH) See scanned (test code = 5579638) report See scanned reportPERIPHERAL BLOOD SMEAR - HOLD [id number] 12:57:38 Test Item Value Reference Range Interpretation Comments PERIPHERAL SMEAR SAVE (BEAKER) (test saved code = 1815) POCT-GLUCOSE [id number] 11:15:01 Test Item Value Reference Range Interpretation Comments POC-GLUCOSE METER 154 mg/dL 70-110 H : TESTED A T [facility] 6720 (BEAKER) (test code [facility], = 1538) 34626: Needle Grader/Techni donn ID = [id number] for Madeleine amy Greg, Gene sis RETICULOCYTE [id number] 11:06:47 Test Item Value Reference Range Interpretation Comments RETICULOCYTE COUNT PCT (BEAKER) (test 3.5 % 0.5-1.7 H code = 575) Needle Grader ID - [id number] ID - [id number] W/PLT [...] PERCENT (BEAKER) (test code = 2801) POCT-GLUCOSE [id number] 07:53:56 Test Item Value Reference Range Interpretation Comments POC-GLUCOSE METER 147 mg/dL 70-110 H : TESTED A T [facility] 6720 (BEAKER) (test code = [place], 1538) 573[address]: Needle Grader/Techni donn ID = [id number] for [place] KEVEN LLOYD COMPREHENSIVE METABOLIC [id number] 07:04:06 Test Item Value Reference Range Interpretation [...] hemolyzed EGFR (BEAKER) (test 32 mL/min/1.73 ESTIMA ILEANA GFR IS code = 1092) sq m NOT ACCURATE CREATININE CLEARANCE IN PREDICTING GLOMERULAR FILTRATION RATE . ESTIMATED GFR I S NOT APPLICABLE FOR DIALYSIS PATIEN TS. Needle Grader ID - RADU MLACTATE DEHYDROGENASE (LDH)2021-07-31 07:03:24 Test Item Value Reference Range Interpretation Comments LACTATE DEHYDROGENASE 320 U/L 125-220 H Specim en slightly (BEAKER) (test code = hemoly zed 635) Needle Grader ID - RADU MTSH/FREE T4 IF [id number] 06:30:31 Test Item Value Reference Range Interpretation Comments THYROID STIMULATING HORMONE 2.363 uIU/mL 0.350-4.940 (BEAKER) (test code = 772) Needle Grader ID - RADU MPROTHROMBIN [id number] 06:01:35 Test Item Value Reference Range Interpretation Comments PROTIME (BEAKER) 14.8 seconds 11.9-14.2 H (test code = 759) INR (BEAKER) (test 1.17 See_Comment [Automat ed message] code = 370) The system Billdesk generated this result transmitted ref erence range: <=5.90. The reference range was not used to int erpret this result as normal/abnormal . RECOMMENDED COUMADIN/WARFARIN INR THERAPY RANGESSTANDARD DOSE: 2.0 - 3.0 Includes: PROPHYLAXIS forvenous thrombosis, systemic embolization; TREATMENT for venous thrombosis and/or pulmonary embolus.HIGH RISK: Target INR is 2.5-3.5 for patients with mechanical heart valves.POCT-GLUCOSE [id number] 23:59:14 Test Item Value Reference Range Interpretation Comments POC-GLUCOSE METER 157 mg/dL 70-110 H : TESTED A T [facility] 6720 (BEAKER) (test code = [facility], 1538) [address]80[address]: Needle Grader/Techni donn ID = [id number] for NATALY MAGALLANES POCT-GLUCOSE [id number] 16:43:29 Test Item Value Reference Range Interpretation Comments POC-GLUCOSE METER 159 mg/dL 70-110 H : TESTED A T [facility] 6720 (BEAKER) (test code = [facility], 1538) 92365: Needle Grader/Techni donn ID = [id number] for DANA ARTIS POCT-GLUCOSE [id number] 11:16:17 Test Item Value Reference Range Interpretation Comments POC-GLUCOSE METER 227 mg/dL 70-110 H : TESTED A T [facility] 6720 (BEAKER) (test code = [facility], 1538) 38371: Needle Grader/Techni donn ID = [id number] for DANA ARTIS COMPREHENSIVE METABOLIC [id number] 10:53:34 Test Item Value Reference Range Interpretation [...] 347) EGFR (BEAKER) (test 32 mL/min/1.73 ESTIMA ILEANA GFR IS code = 1092) sq m NOT ACCURATE CREATININE CLEARANCE IN PREDICTING GLOMERULAR FILTRATION RATE . ESTIMATED GFR I S NOT APPLICABLE FOR DIALYSIS PATIEN TS. Needle Grader ID - RADU MPROTHROMBIN [id number] 10:47:24 Test Item Value Reference Range Interpretation Comments PROTIME (BEAKER) 16.1 seconds 11.9-14.2 H (test code = 759) INR (BEAKER) (test 1.31 See_Comment [Automat ed message] code = 370) The system Billdesk generated this result transmitted ref erence range: [...] PERCENT (BEAKER) (test code = 2801) POCT-GLUCOSE [id number] 07:32:24 Test Item Value Reference Range Interpretation Comments POC-GLUCOSE METER 94 mg/dL 70-110 : TESTED A T [facility] 6720 (BEAKER) (test code = [facility] Esther [facility], 1538) [address]: Needle Grader/Techni donn ID = [id number] for DANA ARTIS POCT-GLUCOSE [id number] 23:53:38 Test Item Value Reference Range Interpretation Comments POC-GLUCOSE METER 307 mg/dL 70-110 H : TESTED A T [facility] 6720 (BEAKER) (test code = [facility] Esther [facility], 1538) [address]68[address]: Needle Grader/Techni donn ID = [id number] for UE MILADIS, NATALY HEMOGLOBIN AND [id number] 18:11:06 Test Item Value Reference Range Interpretation Comments HEMOGLOBIN (BEAKER) (test code = 8.2 GM/DL 11.2-15.7 L 410) HEMATOCRIT (BEAKER) (test code = 26.2 % 34.1-44.9 L 411) Needle Grader ID - 6000POCT-GLUCOSE [id number] 18:07:50 Test Item Value Reference Range Interpretation Comments POC-GLUCOSE METER 150 mg/dL 70-110 H : TESTED A T [facility] 6720 (BEAKER) (test code = [facility], 1538) 70263: Needle Grader/Techni donn ID = [id number] for KEVEN RAMIREZ POCT-GLUCOSE [id number] 16:13:46 Test Item Value Reference Range Interpretation Comments POC-GLUCOSE METER 134 mg/dL 70-110 H : TESTED A T [facility] 6720 (BEAKER) (test code [facility], = 1538) 06375: Needle Grader/Techni donn ID = [id number] for Willian on, Jelly U/S, ABDOMINAL, [id number] 15:32:00Reason for exam:->Suspected liver cirrhosis.[facility] 1940 Sex: FFINAL [...] artery and portal vein. Signed: Lissett Joya Verified Date/Time: 07/29/2021 15:32:55 U/S, DUPLEX, [id number] 15:32:00Reason for exam:->please evaluate [facility] : 1940 Sex: [...] Verified Date/Time: 07/29/2021 15:32:55 VITAMIN B12 AND [id number] 12:33:19 Test Item Value Reference Range Interpretation Comments VITAMIN B12 298 pg/mL 213-816 (BEAKER) (test code = 774) FOLATE (BEAKER) 10.00 ng/mL See_Comment [Automated message] (test code = 362) The system which generated this result transmitted ref erence range: >=7.00. The reference range was not used to interpr et this result as normal/abnormal . Needle Grader ID - ERIK [id number] 12:20:14 Test Item Value Reference Range Interpretation Comments FERRITIN ([employer]) (test code = 47.72 ng/mL 5.00-275.00 361) Needle Grader ID - ERIK GPOCT-GLUCOSE [id number] 12:00:58 Test Item Value Reference Range Interpretation Comments POC-GLUCOSE METER 151 mg/dL 70-110 H : TESTED A T [facility] 6720 ([facility]) (test code = [place], 1538) 11816: Needle Grader/Techni donn ID = [id number] for KEVEN RAMIREZ SARS-COV2/RT-PCR ([facility])2021-07-29 11:29:59 Test Item Value Reference Range Interpretation Comments SARS-COV2/RT-PCR Negative Negative The SARS-Co V-2 target (test code = nucleic acids a re not [id number]) detected in thi s specimen. Negative result [...] revoked sooner. Fact Sheet for Healthcare Providers: https://www.iSnap/Documents/Xpert%20Xpress%20SARS%20CoV-2/Fact%20Sheets/302-3802%20SARS-COV -2%20HEALTHCARE%20PROVIDERS%20FACT%20SHEET.pdf Fact Sheet for Healthcare Patients: https://www.gopogo/Documents/Xpert %20Xpress%20SARS%20CoV-2/Fact%20Sheets/3023801%36ZZUK-CLS-4%20PATIENT%20FACT%20 SHEET.pdfHEPATITIS B SURFACE [id number] 10:58:26 Test Item Value Reference Range Interpretation Comments HEPATITIS B SURFACE ANTIBODY < mIU/mL <8.0 (BEAKER) (test code = 647) Needle Grader ID - DBHEPATITIS A ANTIBODY, [id number] 10:58:21 Test Item Value Reference Range Interpretation Comments HEPATITIS A IGG ANTIBODY (BEAKER) Reactive Nonreactive A (test code = 2797) Needle Grader ID - DBALPHA FETOPROTEIN (AFP), TUMOR [id number] 10:58:15 Test Item Value Reference Range Interpretation Comments ALPHA-FETOPROTEIN (BEAKER) (test code < ng/mL <10.0 = 1094) Needle Grader ID - DBHEPATITIS PANEL, [id number] 10:52:47 Test Item Value Reference Range Interpretation Comments HEPATITIS A IGM ANTIBODY (BEAKER) Nonreactive Nonreactive (test code = 498) HEPATITIS B CORE IGM ANTIBODY Nonreactive Nonreactive (BEAKER) (test code = 645) HEPATITIS C ANTIBODY (BEAKER) Nonreactive Nonreactive (test code = 367) HEPATITIS B SURFACE ANTIGEN (2) Nonreactive Nonreactive (BEAKER) (test code = 2585) Needle Grader ID - DBHEPATITIS B CORE ANTIBODY, [id number] 10:50:08 Test Item Value Reference Range Interpretation Comments HEPATITIS B CORE TOTAL ANTIBODY Nonreactive Nonreactive (BEAKER) (test code = 497) Needle Grader ID - [id number]-9-[id number] 10:41:23 Test Item Value Reference Range Interpretation Comments ALPHA-1 ANTITRYPSIN 160.10 mg/dL 90.00-200.00 Specimen slightly (BEAKER) (test code = hemoly zed 502) Needle Grader ID - DBHEMOGLOBIN [id number] 10:39:46 Test Item Value Reference Range Interpretation Comments HEMOGLOBIN A1C 7.3 % See_Comment H [Automated m essage] ELECTROPHORESIS (AKER) The system which (test code = 3811) generated this result transmitted ref erence range: <=5.6%. The reference range was not used to int erpret this result as normal/abnormal . "The A1c is measured using a [facility]-certified method. HbA1c value equal to or greater than 6.5% as thediagnosis cutoff for diabetes. An HbA1c value of 5.7- 6.4% indicates increased risk for diabetes (prediabetes)."Needle Grader ID - ADMOperator ID - ADMIRON, TIBC, % SAT. (WITHOUT FERRITIN)2021-07-29 10:27:38 Test Item Value Reference Range Interpretation Comments IRON (BEAKER) (test code = 547) 269.0 ug/dL 40.0-160.0 H TOTAL IRON BINDING CAPACITY 318 ug/dL 250-450 (BEAKER) (test code = 769) IRON % SATURATION (2) (BEAKER) 85 % 20-55 H (test code = 2590) Needle Grader ID - DBHEMOGLOBIN AND [id number] 10:01:31 Test Item Value Reference Range Interpretation Comments HEMOGLOBIN (BEAKER) (test code = 7.8 GM/DL 11.2-15.7 L 410) HEMATOCRIT (BEAKER) (test code = 25.9 % 34.1-44.9 L 411) Needle Grader ID - 6000HEPATIC FUNCTION [id number] 06:13:33 Test Item Value Reference Range Interpretation [...] Specimen slightly (test code = 347) hemolyzed Needle Grader ID - ERIK GBASIC METABOLIC [id number] 06:13:32 Test Item Value Reference Range Interpretation [...] 697) EGFR (BEAKER) (test 42 mL/min/1.73 ESTIMA ILEANA GFR IS code = 1092) sq m NOT ACCURATE CREATININE CLEARANCE IN PREDICTING GLOMERULAR FILTRATION RATE . ESTIMATED GFR I S NOT APPLICABLE FOR DIALYSIS PATIEN TS. Needle Grader ID - ERIK GPROTHROMBIN [id number] 05:28:34 Test Item Value Reference Range Interpretation Comments PROTIME (BEAKER) 15.8 seconds 11.9-14.2 H (test code = 759) INR (BEAKER) (test 1.29 See_Comment [Automat ed message] code = 370) The system Billdesk generated this result transmitted ref erence range: [...] % 0-1 PERCENT (BEAKER) (test code = 5664)
[2022-01-02] MEDS ORDERED: LIDOCAINE 1% W/EPI 1:100,000 MDV 50 ML VIAL ONE (21:01)
[2022-01-02] MEDS ORDERED: ONDANSETRON 4 MG/2 ML VIAL ONE (21:37)
--- NOTE | 2022-01-02 22:10 | RAD REPORT ---
EXAM DESCRIPTION: RAD - Tib Fib Right - 01/02/2022 9:45 pm CLINICAL HISTORY: PAIN COMPARISON: None FINDINGS: No fracture confirmed on this study. There is no dislocation or periosteal reaction. Sligh t cortical irregularity proximal shaft right fibula present. No history of trauma at this site. A pat hologic process is not confirmed. Degenerative changes are present at the knee joint only partially e valuated. No widening of the space between the distal tibia and fibula. Soft tissue swelling is prese nt around the ankle with baseline unknown. No foreign body. IMPRESSION: No acute bone or joint finding confirmed. No air or foreign body in the soft tissues.
[2022-01-03 00:11] LABS: Absolute Lymphocytes (CBC) 1.6 K/uL (0.7-4.9); MCV 92.6 fL (80-100); MPV 10.2 fL (7.6-11.3); RBC Red Blood Cell Count 2.17 M/uL (3.86-4.86)
[2022-01-03 00:15] LABS: Hematocrit 20.1 % (36.0-45.0)
[2022-01-03 00:37] LABS: Troponin High Sensitivity 45.4 pg/mL (<58.9)
[2022-01-03 00:43] LABS: Potassium 3.7 mmol/L (3.5-5.1)
[2022-01-03] MEDS ORDERED: FUROSEMIDE 20 MG/ 2ML VIAL ONE (00:53)
--- NOTE | 2022-01-03 01:06 | ER ---
Nurse's Notes [facility] Name: Ana Dennis Age: 81 yrs Sex: Female : 1940 Arrival Date: 01/02/2022 Time: 20:20 Bed 26 Private MD: Diagnosis: Other cirrhosis of liver;Unspecified cirrhosis of liver;Weakness;Heart failure, unspecified;Edema, unspecified;Anemia, unspecified Presentation: 01/02 20:20 Chief complaint: EMS states: called out for cut to foot. son states that he was as6 changing pt and her leg got caught on sons boot. pt has laceration to right elizondo. Coronavirus screen: At this time, the client does not indicate any symptoms associated with coronavirus-19. Ebola Screen: No symptoms or risks identified at this time. Initial Sepsis Screen: Does the patient meet any 2 criteria? No. Patient's initial sepsis screen is negative. Does the patient have a suspected source of infection? No. Patient's initial sepsis screen is negative. Risk Assessment: Do you want to hurt yourself or someone else? Unable to obtain. Onset of symptoms was January 02, 2022. 20:20 Method Of Arrival: EMS: [facility] as6 20:20 Acuity: ARNOLDO 4 as6 Historical: - Allergies: 20:27 ACETAMINOPHEN; as6 20:27 PENICILLINS; as6 - Home Meds: 20:27 levothyroxine 88 mcg oral cap 1 cap once daily [Active]; carvedilol 6.25 mg oral tab as6 [Active]; Actos 45 mg Oral tab 1 tab once daily [Active]; Remeron 30 mg Oral tab 1 tab once daily [Active]; - PMHx: 20:27 Diabetes - IDDM; Gastric Reflux; GERD; Hypertensive disorder; Hypothyroidism; insomnia; as6 ULCER; liver failure; - PSHx: 20:27 bladder sling; Cholecystectomy; hysterectomy; as6 - Immunization history:: Adult Immunizations up to date. - Social history:: Smoking status: Patient denies any tobacco usage or history of. Screenin:03 Abuse screen: Denies threats or abuse. Denies injuries from another. Nutritional as6 screening: No deficits noted. Tuberculosis screening: No symptoms or risk factors identified. Fall Risk None identified. Assessment: 20:20 General: Appears in no apparent distress. Behavior is calm, cooperative. Pain: as6 Complains of pain in right elizondo. Neuro: Level of Consciousness is awake, alert. Cardiovascular: Edema pitting to left midcalf, left ankle, left foot, left toes, right midcalf, right ankle, right foot and right toes. Respiratory: Respiratory effort is even, unlabored. Derm: Wound noted right elizondo Wound is laceration. Injury Description: Laceration sustained to right elizondo is 2.6 to 7.5 cm long. 01/03 03:22 General: Daughter [phone]. as6 Vital Signs: 01/02 20:20 BP 150 / 77; Pulse 88; Resp 18 S; Temp 97.5(A); Pulse Ox 100% on R/A; Weight 58.97 kg as6 (R); Height 5 ft. 0 in. (152.40 cm) (R); 21:56 BP 133 / 79; Pulse 61; Resp 18 S; Pulse Ox 98% on R/A; as6 01/03 00:35 BP 128 / 98; Pulse 88; Resp 18 S; Pulse Ox 100% on R/A; as6 10:44 BP 125 / 90; Pulse 93; Resp 18; Pulse Ox 100% ; mb7 01/05 08:31 BP 126 / 51; Pulse 78; Resp 16; Pulse Ox 100% on R/A; prado 01/02 20:20 Body Mass Index 25.39 (58.97 kg, 152.40 cm) as6 ED Course: 01/02 20:20 Patient arrived in ED. as6 20:23 Michael Jordan MD is Attending Physician. kdr 20:27 Triage completed. as6 20:29 Arm band placed on. as6 20:39 Young Stanley, BOB is Primary Nurse. as6 21:04 Bed in low position. Call light in reach. Side rails up X2. Adult w/ patient. Pulse ox as6 on. NIBP on. Warm blanket given. 21:47 Tib Fib Right XRAY In Process Unspecified. EDMS 23:43 Inserted saline lock: 22 gauge in left antecubital area, using aseptic technique. Blood as6 collected. 23:57 XRAY Chest (1 view) In Process Unspecified. EDMS 01/03 01:02 Davalos cath inserted, using sterile technique, 16 Fr., by ks, balloon inflated, to aa9 gravity drainage, returned cloudy urine. Patient tolerated well. 01:04 Connor Ann MD is Hospitalizing Provider. kdr 01:28 Mauricio Hinton MD is Hospitalizing Provider. kdr 01:35 Assist provider with laceration repair on right elizondo that was between 2.6 to 7.5 cm as6 using sutures. Set up tray. Performed by Michael Jordan MD Dressed with 4X4s, Patient tolerated well. 01:35 Patient admitted, IV remains in place. as6 Administered Medications: 01/02 21:40 Drug: Lidocaine-Epinephrine -1%: (1:100,000) 5 ml {Note: administered by provoder .} as6 Volume: 20 ml; Route: Infiltration; 01/03 01:02 Drug: Lasix (furosemide) 20 mg Route: IVP; Site: left antecubital; aa9 01:02 Follow up: Response: No adverse reaction aa9 Medication: 01:35 VIS not applicable for this client. as6 Outcome: 01:05 Decision to Hospitalize by Provider. kdr 01:35 Admitted to ER Hold. [facility]. as6 01:35 Condition: stable 01:35 Instructed on the need for admit. 01/06 21:51 Patient left the ED. mw2 Signatures: Dispatcher [employer] EDMS Michael Jordan MD MD [facility] Diana Sorenson mw2 Young Stanley RN RN as6 Magda Soto mb7 Portia Rooney RN RN prado Kelley Ham RN RN aa9
--- NOTE | 2022-01-03 01:06 | EDPHYS ---
Physician Documentation [facility] Name: Ana Dennis Age: 81 yrs Sex: Female : 1940 Arrival Date: 01/02/2022 Time: 20:20 Bed 26 Private MD: ED Physician Michael Jordan HPI: 01/02 22:00 This 81 yrs old Female presents to ER via EMS with complaints of right kdr anterior distal tibia avulsion. 22:00 Patient is being moved by her caretakers when her right distal leg impacted the foot of kdr one of the caretakers. That caused an avulsion of her skin on the distal anterior tibia. There was no other trauma. Patient is otherwise without other complaint. Patient is noted to have significant 3-4+ edema of both lower extremities. The wound is seeping fluid. There is no evidence currently of infection. There is also no evidence of fracture.. Onset: The symptoms/episode began/occurred suddenly, just prior to arrival. Severity of symptoms: At their worst the symptoms were mild just prior to arrival, in the emergency department the symptoms are unchanged. The patient has not experienced similar symptoms in the past. It is unknown whether or not the patient has recently seen a physician. Historical: - Allergies: 20:27 ACETAMINOPHEN; as6 20:27 PENICILLINS; as6 - Home Meds: 20:27 levothyroxine 88 mcg oral cap 1 cap once daily [Active]; carvedilol 6.25 mg oral tab as6 [Active]; Actos 45 mg Oral tab 1 tab once daily [Active]; Remeron 30 mg Oral tab 1 tab once daily [Active]; - PMHx: 20:27 Diabetes - IDDM; Gastric Reflux; GERD; Hypertensive disorder; Hypothyroidism; insomnia; as6 ULCER; liver failure; - PSHx: 20:27 bladder sling; Cholecystectomy; hysterectomy; as6 - Immunization history:: Adult Immunizations up to date. - Social history:: Smoking status: Patient denies any tobacco usage or history of. ROS: 22:00 Constitutional: Negative for fever, chills, and weight loss, Eyes: Negative for injury, kdr pain, redness, and discharge, Neck: Negative for injury, pain, and swelling. 22:00 Cardiovascular: Positive for edema, Negative for chest pain, orthopnea, palpitations. 22:00 Abdomen/GI: Positive for nausea, Negative for vomiting, diarrhea, constipation, abdominal cramps. 22:00 Skin: Positive for laceration(s). Exam: 23:55 ECG was reviewed by the Attending Physician. kdr 01/03 01:05 Constitutional: This is a well developed, well nourished patient who is awake, alert, kdr and in no acute distress. Head/Face: Normocephalic, atraumatic. Eyes: Pupils equal round and reactive to light, extra-ocular motions intact. Lids and lashes normal. Conjunctiva and sclera are non-icteric and not injected. Cornea within normal limits. Periorbital areas with no swelling, redness, or edema. Neck: Trachea midline, no thyromegaly or masses palpated, and no cervical lymphadenopathy. Supple, full range of motion without nuchal rigidity, or vertebral point tenderness. No Meningismus. Cardiovascular: Regular rate and rhythm with a normal S1 and S2. No gallops, murmurs, or rubs. Normal PMI, no JVD. No pulse deficits. Back: No spinal tenderness. No costovertebral tenderness. Full range of motion. Skin: Warm, dry with normal turgor. Normal color with no rashes, no lesions, and no evidence of cellulitis. Chest/axilla: Normal chest wall appearance and motion. Nontender with no deformity. No lesions are appreciated. Chest/axilla: Exam negative for Inspection: normal. Cardiovascular: Rate: normal, Rhythm: regular. Respiratory: the patient does not display signs of respiratory distress, Respirations: normal, Breath sounds: rales, that are mild, are heard diffusely. Abdomen/GI: Inspection: distension, that is mild, Bowel sounds: diminished, in all quadrants, Palpation: soft, minimal Tenderness. Vital Signs: 01/02 20:20 BP 150 / 77; Pulse 88; Resp 18 S; Temp 97.5(A); Pulse Ox 100% on R/A; Weight 58.97 kg as6 (R); Height 5 ft. 0 in. (152.40 cm) (R); 21:56 BP 133 / 79; Pulse 61; Resp 18 S; Pulse Ox 98% on R/A; as6 01/03 00:35 BP 128 / 98; Pulse 88; Resp 18 S; Pulse Ox 100% on R/A; as6 10:44 BP 125 / 90; Pulse 93; Resp 18; Pulse Ox 100% ; mb7 01/05 08:31 BP 126 / 51; Pulse 78; Resp 16; Pulse Ox 100% on R/A; prado 01/02 20:20 Body Mass Index 25.39 (58.97 kg, 152.40 cm) as6 Laceration: 01/02 22:00 Wound Repair of 10cm ( 3.9in ) subcutaneous laceration to anterior aspect of right kdr ankle. Distal neuro/vascular/tendon intact. Anesthesia: Local anesthetic administered with 6 mls of 1% lidocaine w/ Epi. Wound prep: Extensive cleansing with hibiclenz by nc, Wound irrigation with saline by nc, Copious irrigation. Skin closed with 3 4-0 Prolene using simple sutures and sterile technique. Dressed with 4x4's, non-adherent dressing. Patient tolerated well. MDM: 01/03 01:05 Patient medically screened. [facility] 01:05 Data reviewed: vital signs, lab test result(s), radiologic studies. Counseling: I had a [facility] detailed discussion with the patient and/or guardian regarding: the historical points, exam findings, and any diagnostic results supporting the discharge/admit diagnosis, lab results, radiology results, the need for further work-up and treatment in the hospital. 01/02 22:51 Order name: Basic Metabolic Panel; Complete Time: 00:55 [facility] 01/02 22:51 Order name: CBC with Diff; Complete Time: 01:54 [facility] 01/02 22:51 Order name: NT PRO-BNP; Complete Time: 00:55 [facility] 01/02 22:51 Order name: Troponin HS; Complete Time: 00:55 [facility] 01/03 00:19 Order name: CBC Smear Scan; Complete Time: 01:54 [facility] 01/03 00:54 Order name: ABO/RH typing [facility] 01/03 00:54 Order name: Antibody Screen [facility] 01/03 00:54 Order name: Packed RBC Leukored [facility] 01/03 01:25 Order name: SARS RAPID; Complete Time: 02:17 as6 01/03 09:44 Order name: Glucose, Ancillary Testing; Complete Time: 21:56 [facility] 01/03 12:39 Order name: Glucose, Ancillary Testing; Complete Time: 21:56 [facility] 01/03 14:09 Order name: Hemoglobin; Complete Time: 21:56 [facility] 01/03 14:09 Order name: Hematocrit; Complete Time: 21:56 [facility] 01/02 20:31 Order name: Tib Fib Right XRAY; Complete Time: 22:12 [facility] 01/02 20:31 Order name: Dressing - Wound; Complete Time: 22:09 [facility] 01/02 20:31 Order name: Gloves, Sterile; Complete Time: 21:00 [facility] 01/02 20:31 Order name: Prolene, Sutures: 4-0; Complete Time: 21:00 [facility] 01/02 22:51 Order name: XRAY Chest (1 view); Complete Time: 21:56 [facility] 01/02 22:51 Order name: EKG; Complete Time: 22:51 [facility] 01/03 18:39 Order name: Glucose, Ancillary Testing; Complete Time: :56 [facility] 01/03 20:27 Order name: Glucose, Ancillary Testing; Complete Time: :56 [facility] 01/04 08:42 Order name: Glucose, Ancillary Testing [facility] 01/04 13:28 Order name: Glucose, Ancillary Testing [facility] 01/04 16:56 Order name: Glucose, Ancillary Testing [facility] 01/04 21:22 Order name: Glucose, Ancillary Testing [facility] 01/05 09:30 Order name: Glucose, Ancillary Testing [facility] 01/06 21:46 Order name: Glucose, Ancillary Testing [facility] 01/02 20:31 Order name: Setup Suture Tray; Complete Time: 21:00 [facility] 01/02 22:51 Order name: Cardiac monitoring; Complete Time: 23:27 [facility] 01/02 22:51 Order name: EKG - Nurse/Tech; Complete Time: 23:27 [facility] 01/02 22:51 Order name: IV Saline Lock; Complete Time: 23:43 [facility] 01/02 22:51 Order name: Labs collected and sent; Complete Time: 23:43 [facility] 01/02 22:51 Order name: O2 Per Protocol; Complete Time: 23:27 [facility] 01/02 22:51 Order name: O2 Sat Monitoring; Complete Time: 23:27 [facility] 01/03 00:24 Order name: Davalos; Complete Time: 01:02 [facility] EC/25 23:55 Rate is 88 beats/min. Rhythm is irregular, Sinus arrythmia with No ectopy. QRS [place] is kdr Normal. [place] interval is normal. QRS interval is normal. Clinical impression: NSR w/ Non-specific ST/T Changes, Abnormal EKG without significant change, and Sinus arrythmia. Administered Medications: 21:40 Drug: Lidocaine-Epinephrine -1%: (1:100,000) 5 ml {Note: administered by provoder .} as6 Volume: 20 ml; Route: Infiltration; 01/03 01:02 Drug: Lasix (furosemide) 20 mg Route: IVP; Site: left antecubital; aa9 01:02 Follow up: Response: No adverse reaction aa9 Disposition Summary: 01/03/22 01:05 Hospitalization Ordered Hospitalization Status: Observation kdr Condition: Fair kdr Problem: an acute exacerbation kdr Symptoms: have improved kdr Bed/Room Type: Standard kdr Provider: Mauricio Hinton(01/03/22 01:28) kdr Location: Telemetry/MedSurg (Inpatient)(01/06/22 20:27) Room Assignment: 223(01/06/22 20:27) Diagnosis - Other cirrhosis of liver kdr - Unspecified cirrhosis of liver kdr - Weakness kdr - Heart failure, unspecified kdr - Edema, unspecified kdr - Anemia, unspecified kdr Forms: - Medication Reconciliation Form kdr - SBAR form kdr Signatures: Dispatcher [employer] EDMS Rosie Roldan RN RN Michael Jordan MD MD kdr Garcia, Cindy, RN RN cg Slawson, Ashby, RN RN as6 More Strong PA PA sb3 Kelley Ham RN RN aa9 Corrections: (The following items were deleted from the chart) 01:28 01:05 Connor Ann kdr kdr 02:33 01:05 Telemetry/MedSurg (observation) kdr cg 02:33 01:05 kdr 01/06 20:27 01/03 02:33 [facility] ER HOLD [facility] 01/06 20:01/03 02:33 ERHOLD- cg
[2022-01-03 01:11] LABS: Blood Morphology Comment NOTED (NOT SEEN); Platelet Estimate DECR; Polychromasia SLIGHT; White Blood Cell Scan OK (OK)
[2022-01-03 02:13] LABS: SARS-CoV-2 Antigen Rapid Res Positive (Negative)
--- NOTE | 2022-01-03 02:16 | P.HP ---
Certification for Inpatient Patient admitted to: Inpatient With expected LOS: <2 Midnights Patient will require the following post-hospital care: Hospice Practitioner: I am a practitioner with admitting privileges, knowledge of patient current condition, hospital course, and medical plan of care. Services: Services provided to patient in accordance with Admission requirements found in Title 42 Section 412.3 of the Code of Federal Regulations Patient History Date of Service: 01/03/22 Reason for admission: Cirrhosis, CHF, Anemia History of Present Illness: Patient is an 81-year-old female with CHF, cirrhosis/liver failure on hospice, hypertension, NIDDM, and hypothyroidism who presented to the ED with complaints of leg laceration. Patient's daughter reports that they take care of her at home. They were trying to change her diaper and when moving her they scraped her leg. Laceration was repaired in the ED without complication. However labs are significant for hemoglobin of 7, BNP 5000. 1 unit PRBC ordered. Patient's daughter reports that she can no longer give patient the care she needs and is requesting half-way placement. Patient is admitted for further evaluation and treatment. Patient is alert and oriented, but is [place]an-speaking only. Daughter is okay with patient receiving blood but does not want CPR, intubation, or vasopressor therapy. Allergies Penicillins Allergy (Intermediate, Verified 10/28/21 09:39) Itching/Hives/Rash ciprofloxacin [From Cipro] Allergy (Unknown, Verified 10/28/21 09:39) Itching/Hives/Rash codeine Allergy (Verified 10/28/21 09:39) Itching/Hives/Rash morphine Allergy (Verified 10/28/21 09:39) Itching/Hives/Rash tramadol [From Ultram] Allergy (Verified 10/28/21 09:39) Per Dr. Mireles' office, can not tolerate losartan [From Cozaar] Adverse Reaction (Verified 10/28/21 09:39) Per Dr. Mireles' office, can not tolerate acetaminoph Allergy (Uncoded 10/28/21 09:39) Unknown Home medications list reviewed: Yes Home Medications: carvediloL [Carvedilol] 1 tab PO BID 11/04/19 Furosemide [Lasix] 20 mg PO QID 10/28/21 Levothyroxine Sodium [Levothyroxine] 1 cap PO DAILY 10/28/21 Mirtazapine [Remeron] 30 mg PO DAILY 10/28/21 Pioglitazone HCl [Actos] 1 tab PO DAILY 10/28/21 - Past Medical/Surgical History Diabetic: Yes -: IDDM -: Pneumonia -: Hypertension -: Arthritis -: Hypothyroidism -: CHF -: Renal insufficiency -: Cirrhosis -: Cholecystectomy -: Hysterectomy Psychosocial/ Personal History: . Is on hospice. Lives at home with daughter. - Family History Brother -: Diabetes - Social History Smoking Status: Never smoker Alcohol use: No CD- Drugs: No Caffeine use: Yes Place of Residence: Home Review of Systems is unable to be obtained Physical Examination - Physical Exam General: Alert, In no apparent distress HEENT: Atraumatic, PERRLA, EOMI, Sclerae nonicteric Neck: Supple, 2+ carotid pulse no bruit, No LAD, Without JVD or thyroid abnormality Respiratory: Clear to auscultation bilaterally, Normal air movement Cardiovascular: Regular rate/rhythm, Normal S1 S2 Gastrointestinal: Normal bowel sounds, No tenderness Musculoskeletal: No tenderness Integumentary: No rashes Neurological: Normal tone, Sensation intact - Studies Laboratory Data (last 24 hrs) 01/02/22 23:40: WBC 6.9, Hgb 7.0 L, Hct 20.1 L*, Plt Count 87 L 01/02/22 23:40: Sodium 137, Potassium 3.7, BUN 78 H, Creatinine 1.99 H, Glucose 152 H Assessment and Plan - Problems (Diagnosis) (1) Cirrhosis Current Visit: Yes Status: Acute Qualifiers: Hepatic cirrhosis type: unspecified biliary cirrhosis Qualified Code(s): K74.5 - Biliary cirrhosis, unspecified (2) CHF (congestive heart failure) Current Visit: Yes Status: Chronic (3) Hospice care patient Current Visit: Yes Status: Chronic (4) Anemia Current Visit: Yes Status: Acute (5) Hypothyroidism Current Visit: Yes Status: Acute (6) Diabetes mellitus Current Visit: Yes Status: Chronic Qualifiers: Diabetes mellitus type: type 2 Diabetes mellitus 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 insulin use: with senior living use Diabetes mellitus complication status: with kidney complications Diabetes mellitus complication detail: with chronic kidney disease Chronic kidney disease stage: stage 4 (severe) Qualified Code(s): E11.22 - Type 2 diabetes mellitus with diabetic chronic kidney disease; N18.4 - Chronic kidney disease, stage 4 (severe); Z79.4 - residential (current) use of insulin (7) Essential (primary) hypertension Current Visit: Yes Status: Chronic - Plan -Continue supportive measures -medical staff services coordinator consult in place for NH placement -Recheck CBC following blood transfusion -Reconcile and continue home medications -SCDs for VTE ppx -DNR: no CPR, intubation, or vasopressors Discharge Plan: [facility]sp Plan to discharge in: 48 Hours - Advance Directives Does patient have a Living Will: No Does patient have a Durable POA for Healthcare: No - Code Status/Comfort Care Code Status Assessed: Yes (DNR) Critical Care: No Time Spent Managing Pts Care (In Minutes): 50
[2022-01-03] MEDS: FENTANYL CITR 100 MCG/2 ML IV PRN ×2 (02:50→22:00)
[2022-01-03] MEDS ORDERED: FENTANYL CITR 100 MCG/2 ML ONE ×3 (02:57→22:02)
[2022-01-03 03:15] VITALS: BMI 25.4
[2022-01-03] MEDS ORDERED: NA CHLORIDE 0.9% 250 ML ONE (04:37)
[2022-01-03] MEDS: INSULIN -REGULAR HUMAN 50 UNIT/0.5 ML ML SQ SCH ×4 (07:30→20:33)
--- NOTE | 2022-01-03 10:30 | RAD REPORT ---
EXAM DESCRIPTION: XR Chest, 1 View CLINICAL HISTORY: The patient is 81 years old and is Female; Dyspnea TECHNIQUE: Single view of the chest. COMPARISON: No relevant prior studies available. FINDINGS: Lungs: Bibasilar infiltrates and/or atelectasis. No pulmonary vascular congestion. Pleural space: No pleural effusion or pneumothorax. Heart: The cardiac silhouette is enlarged versus artifact of AP technique. Mediastinum: Unremarkable. Bones/joints: No acute fracture visualized. Upper abdomen: No free air in the visualized upper abdomen. IMPRESSION: Bibasilar infiltrates and/or atelectasis. Electronically signed by: Laina Solorio MD 01/03/2022 5:55 AM CDT Due to temporary technical issues with the PACS/Fluency reporting system, reports are being signed by the in house radiologists without review as a courtesy to insure prompt reporting. The interpreting radiologist is fully responsible for the content of the report.
--- NOTE | 2022-01-03 12:37 | EKG ---
Test Date: 2022-01-02 Test Time: 23:08:42 Diet Assistant: COURTNEY MEASUREMENT RESULTS: Intervals: Rate: 90 MS: 152 QRSD: 88 QT: 396 QTc: 484 [place]: P: 12 MS: 152 QRS: 54 T: -56 INTERPRETIVE STATEMENTS: Sinus rhythm with premature supraventricular complexes and with occasional premature ventricular complexes Low voltage QRS Possible Inferior infarct, age undetermined Cannot rule out Anterior infarct, age undetermined Abnormal ECG Compared to ECG 09/27/2021 11:14:47 Atrial premature complex(es) now present Ventricular premature complex(es) now present Low QRS voltage now present Sinus arrhythmia no longer present Myocardial infarct finding still present Electronically Signed On 01-03-22 12:36:07 CDT by Jeff Jo
[2022-01-03] MEDS ORDERED: ONDANSETRON 4 MG/2 ML VIAL ONE ×2 (14:01→22:02)
[2022-01-03 14:09] LABS: Hematocrit 22.3 % (36.0-45.0)
[2022-01-03] MEDS ORDERED: SODIUM CHLORIDE 0.9% 10ML INJ IV PRN (14:52)
[2022-01-03] MEDS ORDERED: PANTOPRAZOLE 40 MG INJ IVP ONE (15:00)
[2022-01-03] MEDS ORDERED: PANTOPRAZOLE 40 MG INJ IVP SCH (15:00)
[2022-01-03] MEDS: PANTOPRAZOLE INJ 80 MG in NA CHLORIDE 0.9% 250 ML IV SCH (15:00)
[2022-01-03] MEDS ORDERED: PANTOPRAZOLE 40 MG INJ ONE (16:15)
[2022-01-03] MEDS: ONDANSETRON 4 MG/2 ML VIAL IV PRN (22:00)
[2022-01-04] MEDS: PANTOPRAZOLE INJ 80 MG in NA CHLORIDE 0.9% 250 ML IV SCH ×3 (01:00→21:00)
[2022-01-04] MEDS ORDERED: PANTOPRAZOLE 40 MG INJ ONE (02:37)
[2022-01-04] MEDS ORDERED: NA CHLORIDE 0.9% 250 ML ONE (02:38)
[2022-01-04] MEDS: INSULIN -REGULAR HUMAN 50 UNIT/0.5 ML ML SQ SCH ×4 (07:30→21:00)
--- NOTE | 2022-01-04 15:26 | P.PN ---
Subjective Date of Service: 01/04/22 Chief Complaint: Cirrhosis, CHF, Anemia Subjective: No new changes Physical Examination - Vital Signs Temperature: 97.8 F Blood Pressure: 118/70 Pulse: 87 Respirations: 12 Pulse Ox (%): 99 - Physical Exam General: Alert HEENT: Atraumatic, Normocephalic Cardiovascular: Normal pulses, Regular rate/rhythm, Normal S1 S2 Gastrointestinal: Soft and benign Musculoskeletal: No swelling Neurological: Normal speech Assessment And Plan - Plan Decompensated Liver cirrhosis. GI bleed. severe Anemia Hypothyrodism. Plan: She did have episodes of bleeding warranting packed red cell transfusion. He also did have episode of continuous vomiting of blood and we discussed with family at bedside. Plan is to have patient placed in inpatient hospice and to have no more aggressive therapy. We started pantoprazole therapy for management of GI bleed related to suspected esophageal varices/gastric ulcers. Will follow closely. Continue to make plans for placement in inpatient hospice as per family recommendation
--- NOTE | 2022-01-04 16:32 | EKG ---
Test Date: 2022-01-02 Test Time: 23:14:29 [employer] Vulcanizer: COURTNEY MEASUREMENT RESULTS: Intervals: Rate: 88 [place]: QRSD: 84 QT: 380 QTc: 459 [place]: P: [place]: QRS: 53 T: -68 INTERPRETIVE STATEMENTS: sinus rhythm Low voltage QRS Possible Inferior infarct, age undetermined Cannot rule out Anterior infarct, age undetermined Abnormal ECG Electronically Signed On 01-04-22 16:31:10 CDT by Juan Morfin
[2022-01-05] MEDS: PANTOPRAZOLE INJ 80 MG in NA CHLORIDE 0.9% 250 ML IV SCH (07:00)
[2022-01-05] MEDS: INSULIN -REGULAR HUMAN 50 UNIT/0.5 ML ML SQ SCH ×4 (07:30→21:00)
--- NOTE | 2022-01-05 15:00 | P.PN ---
Subjective Date of Service: 01/05/22 Chief Complaint: Cirrhosis, CHF, Anemia Patient's condition is stable she is not bleeding comfort care measures only Review of Systems is unable to be obtained Physical Examination - Vital Signs Temperature: 97.5 F Blood Pressure: 126/51 Pulse: 78 Respirations: 16 Pulse Ox (%): 100 - Physical Exam General: Alert Respiratory: Clear to auscultation bilaterally Cardiovascular: No edema, Regular rate/rhythm Assessment And Plan - Current Problems (Diagnosis) (1) Cirrhosis Current Visit: Yes Status: Acute Plan: Patient has end-stage cirrhosis of the liver with GI bleeding planning for transfer to hospice care anemic not bleeding vital signs are stable changed to p.o. pantoprazole patient is eating and drinking Qualifiers: Hepatic cirrhosis type: other cirrhosis Qualified Code(s): K74.69 - Other cirrhosis of liver
[2022-01-05] MEDS: PANTOPRAZOLE 40MG TABLET PO SCH (16:30)
[2022-01-05] MEDS: ONDANSETRON 4 MG/2 ML VIAL IV PRN (18:22)
[2022-01-05] MEDS ORDERED: ONDANSETRON 4 MG (ODT) TAB ONE (18:25)
[2022-01-05] MEDS ORDERED: PANTOPRAZOLE 40MG TABLET PO ONE (18:37)
[2022-01-06] MEDS: PANTOPRAZOLE 40MG TABLET PO SCH ×2 (07:30→20:33)
[2022-01-06] MEDS: INSULIN -REGULAR HUMAN 50 UNIT/0.5 ML ML SQ SCH ×4 (07:30→21:00)
[2022-01-06] MEDS ORDERED: LORAZEPAM 1 MG TABLET ONE (07:50)
[2022-01-06] MEDS ORDERED: PANTOPRAZOLE 40MG TABLET PO ONE ×2 (07:50→20:26)
[2022-01-06] MEDS ORDERED: ONDANSETRON 4 MG (ODT) TAB ONE (07:50)
[2022-01-06] MEDS ORDERED: LORAZEPAM 1 MG TABLET PO PRN (08:04)
[2022-01-06] MEDS: ONDANSETRON 4 MG (ODT) TAB PO PRN (08:07)
--- NOTE | 2022-01-06 13:15 | P.PN ---
Subjective Date of Service: 01/06/22 Chief Complaint: Cirrhosis, CHF, Anemia No change in patient's condition she has some anxiety and eating and drinking much waiting for hospice care placement also COVID-positive Review of Systems is unable to be obtained Physical Examination - Vital Signs Temperature: 97.5 F Blood Pressure: 118/58 Pulse: 74 Respirations: 15 Pulse Ox (%): 94 - Physical Exam General: Alert Respiratory: Clear to auscultation bilaterally Cardiovascular: Edema Assessment And Plan - Current Problems (Diagnosis) (1) Cirrhosis Current Visit: Yes Status: Acute Plan: End-stage cirrhosis of the liver await hospice placement comfort care only Qualifiers: Hepatic cirrhosis type: other cirrhosis Qualified Code(s): K74.69 - Other cirrhosis of liver
[2022-01-06] MEDS ORDERED: ACETAMINOPHEN 500 MG TAB ONE (22:38)
[2022-01-07] MEDS: ONDANSETRON 4 MG (ODT) TAB PO PRN (00:13)
[2022-01-07] MEDS: INSULIN -REGULAR HUMAN 50 UNIT/0.5 ML ML SQ SCH ×4 (07:30→21:00)
[2022-01-07] MEDS: PANTOPRAZOLE 40MG TABLET PO SCH ×2 (08:38→16:30)
[2022-01-07] MEDS ORDERED: MORPHINE 2 MG/ML SYR IV PRN (13:57)
--- NOTE | 2022-01-07 13:58 | P.PN ---
Subjective Date of Service: 01/07/22 Subjective: No new changes, No C/O voiced, Improving Review of Systems 10-point ROS is otherwise unremarkable Physical Examination - Vital Signs Temperature: 96.8 F Blood Pressure: 122/64 Pulse: 98 Respirations: 18 Pulse Ox (%): 98 - Physical Exam General: Alert, In no apparent distress HEENT: Atraumatic, PERRLA, EOMI Neck: Supple, JVD not distended Respiratory: Clear to auscultation bilaterally, Normal air movement Cardiovascular: Regular rate/rhythm, Normal S1 S2 Gastrointestinal: Normal bowel sounds, No tenderness Musculoskeletal: No tenderness Integumentary: No rashes Neurological: Normal speech, Normal tone, Normal affect Lymphatics: No axilla or inguinal lymphadenopathy - Studies Medications List Reviewed: Yes Assessment & Plan - Problems (Diagnosis) (1) Cirrhosis Current Visit: Yes Status: Acute Qualifiers: Hepatic cirrhosis type: other cirrhosis Qualified Code(s): K74.69 - Other cirrhosis of liver (2) Hypothyroidism Current Visit: Yes Status: Acute (3) CHF (congestive heart failure) Current Visit: Yes Status: Chronic (4) Diabetes mellitus Current Visit: Yes Status: Chronic Qualifiers: Diabetes mellitus type: type 2 Diabetes mellitus intermediate accountant insulin use: with intermediate accountant use Diabetes mellitus complication status: with kidney complications Diabetes mellitus complication detail: with chronic kidney disease Chronic kidney disease stage: stage 4 (severe) Qualified Code(s): E11.22 - Type 2 diabetes mellitus with diabetic chronic kidney disease; N18.4 - Chronic kidney disease, stage 4 (severe); Z79.4 - termite inspector (current) use of insulin (5) Essential (primary) hypertension Current Visit: Yes Status: Chronic (6) Hospice care patient Current Visit: Yes Status: Chronic - Plan Spoke with daughter and they just want comfort measures. They are no longer able to take care at the house at this time; they are wanting to place the patient. Hopefully we can get her to a swing bed and then the [facility] Long[facility]. Discharge Plan: Other ([place] with hospice) Plan to discharge in: 48 Hours - Advance Directives Does patient have a Living Will: No Does patient have a Durable POA for Healthcare: No - Code Status/Comfort Care Code Status: Do Not Attempt Resuscitat Comfort Measures: Hospice Care Critical Care: No Time Spent Managing PTS Care (In Minutes): 30
[2022-01-07] MEDS ORDERED: FENTANYL CITR 100 MCG/2 ML IV PRN (15:00)
[2022-01-07] MEDS: HYDROCODONE/APAP 7.5/325 MG TAB PO PRN (21:27)
[2022-01-08] MEDS: INSULIN -REGULAR HUMAN 50 UNIT/0.5 ML ML SQ SCH ×4 (07:30→21:00)
[2022-01-08] MEDS: PANTOPRAZOLE 40MG TABLET PO SCH ×2 (09:21→21:53)
[2022-01-08] MEDS: HYDROCODONE/APAP 7.5/325 MG TAB PO PRN ×2 (09:22→23:41)
[2022-01-09] MEDS: INSULIN -REGULAR HUMAN 50 UNIT/0.5 ML ML SQ SCH ×4 (07:30→21:00)
--- NOTE | 2022-01-09 08:09 | P.PN ---
Date of Service: 01/08/22 Subjective Subjective: no new changes, pain in the leg Review of Systems 10-point ROS is otherwise unremarkable Physical Examination - Vital Signs reviewed - Physical Exam General: Alert, In no apparent distress Respiratory: Clear to auscultation bilaterally, Normal air movement Cardiovascular: Regular rate/rhythm, Normal S1 S2 Gastrointestinal: Normal bowel sounds, No tenderness Neurological: Normal speech, Normal tone, Normal affect Assessment & Plan - Problems (Diagnosis) (1) Cirrhosis Current Visit: Yes Status: Acute Qualifiers: Hepatic cirrhosis type: other cirrhosis Qualified Code(s): K74.69 - Other cirrhosis of liver (2) Hypothyroidism Current Visit: Yes Status: Acute (3) CHF (congestive heart failure) Current Visit: Yes Status: Chronic (4) Diabetes mellitus Current Visit: Yes Status: Chronic Qualifiers: Diabetes mellitus type: type 2 Diabetes mellitus long term care administrator insulin use: with long term care administrator use Diabetes mellitus complication status: with kidney complications Diabetes mellitus complication detail: with chronic kidney disease Chronic kidney disease stage: stage 4 (severe) Qualified Code(s): E11.22 - Type 2 diabetes mellitus with diabetic chronic kidney disease; N18.4 - Chronic kidney disease, stage 4 (severe); Z79.4 - long term care administrator (current) use of insulin (5) Essential (primary) hypertension Current Visit: Yes Status: Chronic (6) Hospice care patient Current Visit: Yes Status: Chronic - Plan -Continue with comfort measures. -Spoke with daughter and they just want comfort measures. They are no longer able to take care of patient at home. They are wanting to place the patient. Hopefully we can get her to a swing bed and then to [facility]. Discharge Plan: Other ([place] with hospice) Plan to discharge in: 48 Hours - Advance Directives Does patient have a Living Will: No Does patient have a Durable POA for Healthcare: No - Code Status/Comfort Care Code Status: Do Not Attempt Resuscitat Comfort Measures: Hospice Care Critical Care: No Time Spent Managing PTS Care (In Minutes): 30
[2022-01-09] MEDS: PANTOPRAZOLE 40MG TABLET PO SCH ×2 (08:54→16:24)
[2022-01-09] MEDS: HYDROCODONE/APAP 7.5/325 MG TAB PO PRN ×2 (10:57→16:24)
--- NOTE | 2022-01-09 17:59 | P.PN ---
Subjective Date of Service: 01/09/22 Chief Complaint: Cirrhosis, CHF, Anemia Subjective: No new changes Ms. Dennis is Uruguayan-speaking only. The following history was obtained with the assistance of a certified [place] trekking guide. No acute events overnight. She denies any concerns this morning. She denies any nausea, vomiting, hematochezia, or melena. Review of Systems 10-point ROS is otherwise unremarkable Physical Examination - Vital Signs Temperature: 97.2 F Blood Pressure: 140/63 Pulse: 103 Respirations: 18 Pulse Ox (%): 97 - Physical Exam General: Alert, In no apparent distress, Oriented x3 HEENT: Atraumatic, PERRLA, Mucous membr. 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 Gutierrez. She states that the plan is for her to go back home tomorrow with her established hospice company. They endorse that they are aware of the severity of her acute gastrointestinal bleed and that it may be lifethreatening. She states that she does not wish to pursue any aggressive measures or aggressive intervention. She wishes to be placed back on hospice, and will have a ride in the morning. We will respect her wishes and anticipate discharge tomorrow morning. Connor Ann M.D. Discharge Plan: Home Plan to discharge in: 24 Hours - Code Status/Comfort Care Comfort Measures: Hospice Care
[2022-01-10 02:51] VITALS: O2SAT 99
[2022-01-10 05:07] VITALS: TEMP 97.5
[2022-01-10] MEDS: INSULIN -REGULAR HUMAN 50 UNIT/0.5 ML ML SQ SCH (07:30)
--- NOTE | 2022-01-10 08:18 | P.DS ---
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 Dennis is Vietnamese-speaking only. The following communication was achieved with the assistance of a certified Vietnamese-Pashto campground manager. Ms. Ana Dennis is a pleasant 81-year-old female with a past medical history significant for cirrhosis of the liver complicated by portal hypertension with esophageal varices, type 2 diabetes mellitus, hypertension, and hypothyroidism who was admitted to the [facility] on 01/03/2022 for a laceration to her right lower extremity. Prior to arrival, she was enrolled in hospice. While her family members were changing her at home, they accidentally lacerated her right lower extremity and were having difficulty controlling the bleeding. They brought her into the emergency department and reversed her hospice status so that she can get the medical care that she needed for the injury. During her admission, she had an episode of hematemesis and was treated with a packed red blood cell transfusion. However, she stated that she does not wish to have any aggressive measures or treatments and wishes to resume hospice services. Her family tried to have her placed in a facility for hospice as they felt that they were unable to provide her the care she needed at home, but we were unable to find an accepting facility. Ultimately, her and her family decided that they would prefer her to come back home and re-enroll in the hospice services that she presented with. On 01/10/2022, she was seen on morning rounds and deemed medically stable for discharge. She and her family were given the opportunity to ask questions and reported no further questions. Furthermore, all questions were answered to the best of my ability. Today, I personally spent 20 minutes on her case, of which greater than 50% of the time was spent in patient education, counseling, and coordination of care as described above. - Physical Exam General: Alert, In no apparent distress, Oriented x3 HEENT: Atraumatic, PERRLA, Mucous membr. moist/pink, EOMI, Sclerae nonicteric Neck: Supple, JVD not distended Respiratory: Clear to auscultation bilaterally, Normal air movement Cardiovascular: No edema, Regular rate/rhythm, Normal S1 S2, No gallops, No rubs, No murmurs Gastrointestinal: Normal bowel sounds, Soft and benign, No tenderness, No rebound, No guarding Musculoskeletal: No clubbing Integumentary: No rashes. Small laceration to right lower extremity is clean, dry, and intact. Neurological: Normal speech, Normal affect Vital Signs/Physical Exam: Temp Pulse Resp BP Pulse Ox 97.5 F 82 18 120/53 L 92 01/10/22 04:00 01/10/22 04:00 01/10/22 04:00 01/10/22 04:00 01/10/22 04:00 Laboratory Data at Discharge: WBC 6.9 K/uL (4.3-10.9) 01/02/22 23:40 Hgb 7.6 g/dL (12.0-15.0) L 01/03/22 13:54 Hct 22.3 % (36.0-45.0) L 01/03/22 13:54 Plt Count 87 K/uL (152-406) L 01/02/22 23:40 Sodium 137 mmol/L (136-145) 01/02/22 23:40 Potassium 3.7 mmol/L (3.5-5.1) 01/02/22 23:40 BUN 78 mg/dL (7-18) H 01/02/22 23:40 Creatinine 1.99 mg/dL (0.55-1.3) H 01/02/22 23:40 Glucose 152 mg/dL (74-106) H 01/02/22 23:40 Home Medications: RX: carvediloL [Carvedilol] 1 tab PO BID 11/04/19 RX: Furosemide [Lasix] 20 mg PO QID 10/28/21 RX: Levothyroxine Sodium [Levothyroxine] 1 cap PO DAILY 10/28/21 RX: Mirtazapine [Remeron] 30 mg PO DAILY 10/28/21 RX: Medihoney [Medihoney Woundcare Gel*] 1 appl TOP DAILY tube 08/02/22 RX: Pantoprazole [Protonix Tab*] 40 mg PO BIDAC tab 01/10/22 Physician Discharge Instructions: 1. Follow-up with Hospice as needed Diet: Regular Activity: Fall precautions Followup: ANNA ALMEIDA [Primary Care Provider] - Time spent managing pt's care (in minutes): 20
[2022-01-10 08:47] VITALS: BP 148/73
[2022-01-10] MEDS ORDERED: MEDIHONEY 44 ML TOPICAL TUBE TOP SCH (09:00)
== END 2022-01-10 09:21 | disposition hospice, home (50) | DRG 987 ==
LOC: ER 20:19 → ERHOLD 01-03 02:07 → 2ND 01-06 21:32
PROVIDERS: ADMIT Internal Medicine Nephrology; ATTEND Internal Medicine Nephrology
PROC: 0JQQ0ZZ Repair Right Foot Subcutaneous Tissue and Fascia, Open Approach (ICD-10-PCS; principal; 2022-01-03)
PROC: 30233N1 Transfusion of Nonautologous Red Blood Cells into Peripheral Vein, Percutaneous Approach (ICD-10-PCS; 2022-01-03)
DX: K74.60 Unspecified cirrhosis of liver (principal); I85.11 Secondary esophageal varices with bleeding; U07.1 COVID-19; D62 Acute posthemorrhagic anemia; I13.0 Hypertensive heart and chronic kidney disease with heart failure and stage 1 through stage 4 chronic kidney disease, or unspecified chronic kidney disease; N18.4 Chronic kidney disease, stage 4 (severe); K76.6 Portal hypertension; S91.011A Laceration without foreign body, right ankle, initial encounter; E03.9 Hypothyroidism, unspecified; E11.22 Type 2 diabetes mellitus with diabetic chronic kidney disease; I50.9 Heart failure, unspecified; K31.89 Other diseases of stomach and duodenum; Z88.0 Allergy status to penicillin; Z79.4 Long term (current) use of insulin; W22.8XXA Striking against or struck by other objects, initial encounter; Y92.009 Unspecified place in unspecified non-institutional (private) residence as the place of occurrence of the external cause; Z66 Do not resuscitate
CPT/HCPCS: 36415; 36430; 51702; 71045; 80048; 82947; 83880; 84484; 85014; 85018; 85025; 86850; 86900; 86901; 87811; 93005; 96374; 99251; 99285; C9113; J1940; J2405; J3010; J7050; P9016; Q0162